=== PATIENT | male | born 1970 | race African-American/Black ===

== ENCOUNTER 2020-12-11 17:29 | Inpatient (IN) ==
--- NOTE | 2020-12-11 18:49 | Emergency Department Note ---
History of Present Illness General Chief complaint: Shortness of Breath/Dyspnea Time Seen by Provider: 12/11/20 18:36 Source: patient History of Present Illness Provider complaint: Cough and shortness of breath Onset (ago): day(s) 10 Location: chest Pain Consistency: + constant Quality: + other (Short of breath) Exacerbated By: + other (Exertion) Associated symptoms: + cough and + shortness of breath; no chest pain, no fever/chills, no headaches, no malaise or no nausea/vomiting This is a 50-year-old male with history of hypertension presenting with cough and shortness of breath. He was sent here from his doctor's office to evaluate for PE versus COVID-19. The patient states that 10 days ago he started coughin g. He has a dry cough. He also had shortness of breath with it. It was worse with exertion. No associated chest discomfort or pain or back pain. He denies any fever, loss of taste or smell or diarrhea. He has been vaccinated for COVID-19 and has had no known exposure. He states that his blood pressure is high because he forgot to take his blood pressure medication this morning. He denies any vomiting, diarrhea, leg swelling or pain, abdominal pain, urinary symptoms or history of PE or DVT. Home Medications Medication Instructions Recorded Confirmed Type losartan 50 mg tablet 50 mg PO DAILY 02/06/18 12/11/20 History metformin 1,000 mg tablet 1,000 mg PO BID 02/06/18 12/11/20 History Allergies Allergy/AdvReac Type Severity Reaction Status Date / Time bee venom protein (honey bee) Allergy Unknown anaplyaxsis Verified 12/11/20 21:20 . Past Med/Surg History Medical History Diabetes Hypertension Social History Smoking Status: Never smoker Preferred Language: Mexican Feels Safe at Home: Yes Review of Systems See HPI for pertinent positives & negatives. and A total of 10 systems reviewed and were otherwise negative Physical Exam Vital Signs Vital Signs - 24 hr 12/11/20 17:38 12/11/20 17:46 12/11/20 17:54 Temperature 36.8 C Temperature Source Oral Pulse Rate 123 H 119 H Pulse Rate from SpO2 Sensor 123 H Respiratory Rate 29 H 20 Respiratory Effort / Characteristics Spontaneous Short of Breath SOB on Exertion Respiratory Depth Normal Respiratory Pattern Regular Blood Pressure 207/148 H 207/148 H Blood Pressure Mean 167 167 Blood Pressure Position Lying Pulse Oximetry 93 92 99 Oxygen Delivery Method Room Air Nasal Cannula Oxygen Flow Rate 6 Sepsis Recent Fever Within 48 Hours No Sepsis New/Unexplained Change in Mental Status N/A Sepsis Action Taken by Nursing No Action Required Oxygen Flow Rate - Titration 0 Pulse Oximetry Post Tiitration 94 12/11/20 18:00 12/11/20 18:30 12/11/20 19:00 Temperature Temperature Source Pulse Rate 120 H 115 H 123 H Pulse Rate from SpO2 Sensor 120 H 115 H 123 H Respiratory Rate 28 H 26 H 29 H Respiratory Effort / Characteristics Respiratory Depth Respiratory Pattern Blood Pressure 207/151 H 197/154 H 200/154 H Blood Pressure Mean 169 168 169 Blood Pressure Position Pulse Oximetry 96 97 94 Oxygen Delivery Method Oxygen Flow Rate Sepsis Recent Fever Within 48 Hours Sepsis New/Unexplained Change in Mental Status Sepsis Action Taken by Nursing Oxygen Flow Rate - Titration Pulse Oximetry Post Tiitration 12/11/20 19:30 12/11/20 19:44 12/11/20 20:17 Temperature Temperature Source Pulse Rate 118 H 125 H Pulse Rate from SpO2 Sensor 117 H 125 H Respiratory Rate 28 H 24 Respiratory Effort / Characteristics Respiratory Depth Respiratory Pattern Blood Pressure 199/145 H Blood Pressure Mean 163 Blood Pressure Position Pulse Oximetry 97 97 91 Oxygen Delivery Method Nasal Cannula Oxygen Flow Rate 2 Sepsis Recent Fever Within 48 Hours Sepsis New/Unexplained Change in Mental Status Sepsis Action Taken by Nursing Oxygen Flow Rate - Titration Pulse Oximetry Post Tiitration 12/11/20 20:20 12/11/20 20:30 12/11/20 21:30 Temperature Temperature Source Pulse Rate 122 H 120 H 115 H Pulse Rate from SpO2 Sensor 122 H 120 H 115 H Respiratory Rate 22 24 26 H Respiratory Effort / Characteristics Respiratory Depth Respiratory Pattern Blood Pressure 201/150 H 186/132 H Blood Pressure Mean 167 150 Blood Pressure Position Pulse Oximetry 92 95 93 Oxygen Delivery Method Oxygen Flow Rate Sepsis Recent Fever Within 48 Hours Sepsis New/Unexplained Change in Mental Status Sepsis Action Taken by Nursing Oxygen Flow Rate - Titration Pulse Oximetry Post Tiitration 12/11/20 22:00 12/11/20 22:32 Temperature Temperature Source Pulse Rate 111 H 122 H Pulse Rate from SpO2 Sensor 112 H 122 H Respiratory Rate 22 24 Respiratory Effort / Characteristics Respiratory Depth Respiratory Pattern Blood Pressure 178/125 H Blood Pressure Mean 142 Blood Pressure Position Pulse Oximetry 95 92 Oxygen Delivery Method Oxygen Flow Rate Sepsis Recent Fever Within 48 Hours Sepsis New/Unexplained Change in Mental Status Sepsis Action Taken by Nursing Oxygen Flow Rate - Titration Pulse Oximetry Post Tiitration Constitutional: Vital signs reviewed. Eyes: Pupils are equal round reactive to light. Conjunctiva are noninjected. ENT: Pharynx is clear without erythema or exudate. Mucous membranes are moist. Neck supple without meningeal signs. Respiratory: Clear to auscultation bilaterally. Breath sounds are equal bilaterally. No JVD or tracheal deviation. Cardiovascular: Regular rhythm. Tachycardic. Heart rate 119. GI: Soft, nondistended and nontender. Bowel sounds are present. Musculoskeletal: No peripheral edema. No lower extremity tenderness. Integumentary: No cyanosis. or jaundice. Neurological: The patient is awake and alert. No focal deficits. Psychiatric: Normal affect. Not anxious appearing. Course Administered Medications Discontinued Medications Piperacillin Sod/Tazobactam Sod (Zosyn) 4.5 gm in 120 mls @ 240 mls/hr IV NOW ONE Stop: 12/11/20 21:18 Last Infusion: 12/11/20 21:46 Dose: 0 mls/hr Documented by: [id number] Admin: 12/11/20 21:13 Dose: 240 mls/hr Documented by: [id number] Ioversol (Optiray 320 125ml) 110 ml IV ONCE ONE Stop: 12/11/20 20:05 Last Admin: 12/11/20 20:05 Dose: 110 ml Documented by: [id number] Losartan Potassium (Losartan Potassium 50 Mg Tab) 50 mg PO NOW STA Stop: 12/11/20 19:09 Last Admin: 12/11/20 19:49 Dose: 50 mg Documented by: [id number] Nitroglycerin (Nitroglycerin 2% Ointment 30gm Tube) 1 inch EXT NOW ONE Stop: 12/11/20 20:48 Last Admin: 12/11/20 21:02 Dose: 1 inch Documented by: [id number] Critical Care Time Critical Care Time: Yes Total Critical Care Time: 35 I have personally spent approximately 35 minutes of critical care time in the direct management of this patient. This includes bedside care, interpretation of diagnostic studies, and testing, discussion with consultants, patient, and family members, and other required patient management activities. These minutes are in excess of all separately billable procedures. Medical Decision Making Differential Diagnosis Pneumonia, pulmonary embolism, COVID-19, dehydration, viral syndrome, ACS Medical Records Attestation: I reviewed the patient's medical records. I did perform a limited focused review of portions of the patient's old chart on the electronic medical record. The patient has had no recent pertinent visits to this hospital. Home Medications Current Medication List: was personally reviewed by me Laboratory Data Attestation: I reviewed the patient's lab results. Result diagrams: 12/11/20 17:41 12/11/20 17:41 Lab Results 12/11/20 12/11/20 12/11/20 Range/Units 17:41 17:41 17:41 WBC 9.46 (4.8-10.8) K/uL RBC 5.16 (4.7-6.1) M/uL Hgb 14.5 (14.0-18.0) g/dL Hct 43.2 (42-52) % MCV 83.7 (80-100) fL MCH 28.1 (25-34) pg MCHC 33.6 (32-36) g/dL RDW Std Deviation 40.3 (36.4-46.3) fL RDW Coeff of Trina 13.3 (11.5-14.5) % Plt Count 164 (130-400) K/uL MPV 12.1 H (7.4-10.4) fL Immature Gran % (Auto) 0.1 % Neut % (Auto) 71.6 % Lymph % (Auto) 19.5 % [place] % (Auto) 7.4 % Eos % (Auto) 1.1 % Baso % (Auto) 0.3 % Neut # (Auto) 6.78 H (1.4-6.5) K/uL Lymph # (Auto) 1.84 (1.2-3.4) K/uL [place] # (Auto) 0.70 H (0.11-0.59) K/uL Eos # (Auto) 0.10 (0-0.5) K/uL Baso # (Auto) 0.03 (0-0.2) K/uL Immature Gran # (Auto) 0.01 (0.00-0.02) K/uL PT 11.3 (9.0-12.0) Seconds INR 1.1 (0.9-1.1) APTT 22.5 (21.0-31.0) Seconds PTT Ratio 0.9 Sodium 138 (136-145) mmol/L Potassium 3.8 (3.5-5.1) mmol/L Chloride 108 H (98-107) mmol/L Carbon Dioxide 21 (21-32) mmol/L Anion Gap 10.0 (3-11) BUN 18 (7-18) mg/dl Creatinine 1.46 H (0.6-1.4) mg/dl Est Cr Clr Drug Dosing 80.9 ml/min Est GFR ( Amer) 63.2 ml/min Est GFR (Non-Af Amer) 54.5 ml/min BUN/Creatinine Ratio 12.4 (10-20) Glucose 237 H (70-99) mg/dl Lactate (0.4-2.0) mmol/L Calcium 9.1 (8.5-10.1) mg/dl Total Bilirubin 0.9 (0.2-1) mg/dl AST 81 H (15-37) U/L ALT 135 H (12-78) U/L Alkaline Phosphatase 87 (45-117) U/L Troponin I 0.049 H* (0-0.045) ng/ml Total Protein 6.8 (6.4-8.2) gm/dl Albumin 3.2 L (3.4-5.0) gm/dl Globulin 3.6 (2.5-4.0) gm/dl Albumin/Globulin Ratio 0.9 (0.9-2) COVID-19 Eval Order SARS-CoV-2 (PCR) (Negative) 12/11/20 12/11/20 12/11/20 Range/Units 19:04 19:04 21:07 WBC (4.8-10.8) K/uL RBC (4.7-6.1) M/uL Hgb (14.0-18.0) g/dL Hct (42-52) % MCV (80-100) fL MCH (25-34) pg MCHC (32-36) g/dL RDW Std Deviation (36.4-46.3) fL RDW Coeff of Trina (11.5-14.5) % Plt Count (130-400) K/uL MPV (7.4-10.4) fL Immature Gran % (Auto) % Neut % (Auto) % Lymph % (Auto) % [place] % (Auto) % Eos % (Auto) % Baso % (Auto) % Neut # (Auto) (1.4-6.5) K/uL Lymph # (Auto) (1.2-3.4) K/uL [place] # (Auto) (0.11-0.59) K/uL Eos # (Auto) (0-0.5) K/uL Baso # (Auto) (0-0.2) K/uL Immature Gran # (Auto) (0.00-0.02) K/uL PT (9.0-12.0) Seconds INR (0.9-1.1) APTT (21.0-31.0) Seconds PTT Ratio Sodium (136-145) mmol/L Potassium (3.5-5.1) mmol/L Chloride (98-107) mmol/L Carbon Dioxide (21-32) mmol/L Anion Gap (3-11) BUN (7-18) mg/dl Creatinine (0.6-1.4) mg/dl Est Cr Clr Drug Dosing ml/min Est GFR ( Amer) ml/min Est GFR (Non-Af Amer) ml/min BUN/Creatinine Ratio (10-20) Glucose (70-99) mg/dl Lactate 1.6 (0.4-2.0) mmol/L Calcium (8.5-10.1) mg/dl Total Bilirubin (0.2-1) mg/dl AST (15-37) U/L ALT (12-78) U/L Alkaline Phosphatase (45-117) U/L Troponin I (0-0.045) ng/ml Total Protein (6.4-8.2) gm/dl Albumin (3.4-5.0) gm/dl Globulin (2.5-4.0) gm/dl Albumin/Globulin Ratio (0.9-2) COVID-19 Eval Order Covid19 at [facility] SARS-CoV-2 (PCR) NEGATIVE (Negative) Imaging Data Radiologist's Impression: Chest CTA 12/11/20 18:46 CT ANGIOGRAPHY OF THE CHEST, PULMONARY EMBOLUS PROTOCOL CLINICAL HISTORY: Dyspnea eval for PE COMPARISON STUDY: Chest radiograph February 06, 2018. TECHNIQUE: Following IV administration of 110 mL of Optiray, helical axial images of the chest were obtained utilizing the pulmonary embolus protocol. Maximal intensity projections and sagittal and coronal reformats were viewed on an independent 3D workstation. IV contrast was administered without complication. Automated exposure control was utilized for the study. A dose lowering technique was utilized adhering to the principles of ALARA. CT DOSE: 856.00 mGy.cm FINDINGS: No pulmonary emboli are identified. Borderline cardiomegaly is noted. There is a small pericardial effusion. Moderate bilateral pleural effusions are noted, right larger than left. Bilateral lower lobe associated airspace opaciti es are present. Interlobular septal thickening within the lungs is noted. Note is made of a 3.1 cm ground glass opacity within the right upper lobe. There are smaller ground glass opacities within the left upper lobe. No acute fracture or suspicious lesion within visualized portions of the bony thorax is noted. There are multiple mildly enlarged mediastinal and bilateral hilar lymph nodes. Index right paratracheal lymph node on image 202 of 271 measures 1.3 cm in short axis diameter. A probable 1.1 cm right hepatic lobe cyst is incidentally noted. IMPRESSION: 1. No pulmonary emboli identified. 2. Moderate bilateral pleural effusions. Associated bilateral lower lobe opacities favor atelectasis although pneumonia could appear similar. Small pericardial effusion. 3. Interlobular septal thickening consistent with interstitial pulmonary edema. Bilateral upper lobe ground glass opacities could reflect a superimposed infectious process or alveolar edema. 4. Mildly enlarged mediastinal and bilateral hilar lymph nodes which are likely reactive or related to pulmonary edema. ACT 112: Negative or not required by law. Electronically signed by: Marlon Stein M.D. 12/11/2020 8:40 PM ECG Data Attestation: I personally reviewed and interpreted this ECG as follows: Indication: + SOB/dyspnea Rate (beats per minute): 124 Rhythm: + sinus tachycardia ECG House: + Normal ECG ST segments: + Nonspecific ST abnormalities ECG Findings: + LVH MDM Narrative I did evaluate the patient as noted above. The patient was sent here from his doctor's office for dyspnea on exertion and cough. They were concerned about pulmonary embolism or COVID-19. IV access was established. I did place an order for continuous cardiac monitoring. The monitor showed sinus tachycardia at a rate of 112 bpm. The patient's O2 saturation was in the 80s on room air. He was placed on 2 L of oxygen via nasal cannula. He did feel better afterwards. I did order and personally review the patient's 12-lead EKG as described above. He has sinus tachycardia with nonspecific ST changes. He denies having any chest discomfort or pain. He is not currently having any shor tness of breath. I did order and review the patient's blood work as noted in the electronic medical record. CBC is unremarkable without leukocytosis or anemia. His electrolytes are unremarkable. Creatinine slightly elevated 1.46. Troponin is slightly elevated 0.049. AST and ALT are slightly elevated as well and glucose is 237. He is on Metformin. His blood pressure is significantly elevated. I did treat him with losartan 50 mg p.o. as he forgot to take it this morning. His blood pressure did improve but was still elevated. After discussion with the patient, I did order a CT angiogram of the chest. I did review the images myself as well as the radiology report as described above. He has no evidence of pulmonary embolism. He does have bilateral pulmonary edema as well as some bilateral lower lobe opacities concerning for pneumonia. There is a small pericardial effusion. I did discuss the test results with the patient. He states he feels well at this time. He has no complaints currently. I did order blood cultures. I ordered a lactate which was 1.6. I did treat him with Zosyn IV and recommended hospitalization. He was also given nitroglycerin paste to the anterior chest wall for his blood pressure and pulmonary edema. Should this not be effective he may need to be started on the drip. Covid testing was negative. I did discuss the case with the hospitalist and continuous pillowcase cutter. Impression & Plan Hypoxemia, Pulmonary edema, Pericardial effusion, Bilateral pneumonia, Elevated troponin, Abnormal LFTs, Elevated serum creatinine, Acute hyperglycemia Discharge Plan Visit Data Chief Complaint: Shortness of Breath/Dyspnea ED Provider: Shane Calderon Discharge Problem: Hypoxemia, Pulmonary edema, Pericardial effusion, Bilateral pneumonia, Elevated troponin, Abnormal LFTs, Elevated serum creatinine, Acute hyperglycemia Patient Disposition: Being Evaluated by Hospitalist Forms Stand Alone Forms: My [facility] Prescriptions Prescriptions: No Action losartan 50 mg tablet 50 mg PO DAILY RF: 0 metformin 1,000 mg tablet 1,000 mg PO BID RF: 0 Referrals Referrals: Jeet Chu [Primary Care Provider] -
[2020-12-11 18:54] LABS: Basophils # (auto) 0.03 K/uL (0-0.2); Basophils % (auto) 0.3 %; Eosinophils % (auto) 1.1 %; Hematocrit (blood only) 43.2 % (42-52); Hemoglobin 14.5 g/dL (14.0-18.0); Immature Granulocytes # (auto) 0.01 K/uL (0.00-0.02); Immature Granulocytes % (auto) 0.1 %; Lymphocytes # (auto) 1.84 K/uL (1.2-3.4); Lymphocytes % (auto) 19.5 %; Mean Corpuscular Hemoglobin 28.1 pg (25-34); Mean Corpuscular Hgb Conc 33.6 g/dL (32-36); Mean Corpuscular Volume 83.7 fL (80-100); Mean Platelet Volume 12.1 fL (7.4-10.4); Monocytes % (auto) 7.4 %; Neutrophils # (auto) 6.78 K/uL (1.4-6.5); Neutrophils % (auto) 71.6 %; Platelet Count 164 K/uL (130-400); RDW Coefficient of Variation 13.3 % (11.5-14.5); RDW Standard Deviation 40.3 fL (36.4-46.3); Red Blood Count 5.16 M/uL (4.7-6.1); White Blood Count 9.46 K/uL (4.8-10.8)
[2020-12-11 19:01] LABS: Albumin Level 3.2 gm/dl (3.4-5.0); BUN Creatinine Ratio 12.4 (10-20); Calcium 9.1 mg/dl (8.5-10.1); Creatinine Clr Calc Pharmacy 80.9 ml/min; Est GFR (African American) 63.2 ml/min; Est GFR (Non-African American) 54.5 ml/min; Potassium 3.8 mmol/L (3.5-5.1)
[2020-12-11 19:04] LABS: INR 1.1 (0.9-1.1); Partial Thromboplastin Ratio 0.9; Partial Thromboplastin Time 22.5 Seconds (21.0-31.0); Prothrombin Time 11.3 Seconds (9.0-12.0)
[2020-12-11] MEDS ORDERED: LOSARTAN POTASSIUM 50 MG TAB PO STA (19:08)
[2020-12-11 19:09] LABS: Albumin Globulin Ratio 0.9 (0.9-2); Bilirubin,Total 0.9 mg/dl (0.2-1); Globulin 3.6 gm/dl (2.5-4.0); Total Protein 6.8 gm/dl (6.4-8.2); Troponin I 0.049 ng/ml (0-0.045)
[2020-12-11] MEDS ORDERED: OPTIRAY 320 125ml IV ONE (20:04)
--- NOTE | 2020-12-11 20:42 | CT Scan Report ---
CT ANGIOGRAPHY OF THE CHEST, PULMONARY EMBOLUS PROTOCOL CLINICAL HISTORY: Dyspnea eval for PE COMPARISON STUDY: Chest radiograph February 06, 2018. TECHNIQUE: Following IV administration of 110 mL of Optiray, helical axial images of the chest were o btained utilizing the pulmonary embolus protocol. Maximal intensity projections and sagittal and cor onal reformats were viewed on an independent 3D workstation. IV contrast was administered without co mplication. Automated exposure control was utilized for the study. A dose lowering technique was ut ilized adhering to the principles of ALARA. CT DOSE: 856.00 mGy.cm FINDINGS: No pulmonary emboli are identified. Borderline cardiomegaly is noted. There is a small per icardial effusion. Moderate bilateral pleural effusions are noted, right larger than left. Bilateral lower lobe associated airspace opacities are present. Interlobular septal thickening within the lungs is noted. Note is made of a 3.1 cm ground glass opacity within the right upper lobe. There are small er ground glass opacities within the left upper lobe. No acute fracture or suspicious lesion within v isualized portions of the bony thorax is noted. There are multiple mildly enlarged mediastinal and bi lateral hilar lymph nodes. Index right paratracheal lymph node on image 202 of 271 measures 1.3 cm in short axis diameter. A probable 1.1 cm right hepatic lobe cyst is incidentally noted. IMPRESSION: 1. No pulmonary emboli identified. 2. Moderate bilateral pleural effusions. Associated bilateral lower lobe opacities favor atelectasis although pneumonia could appear similar. Small pericardial effusion. 3. Interlobular septal thickening consistent with interstitial pulmonary edema. Bilateral upper lobe ground glass opacities could reflect a superimposed infectious process or alveolar edema. 4. Mildly enlarged mediastinal and bilateral hilar lymph nodes which are likely reactive or related t o pulmonary edema. ACT 112: Negative or not required by law. Electronically signed by: Marlon Stein M.D. 12/11/2020 8:40 PM
[2020-12-11] MEDS ORDERED: NITROGLYCERIN 2% OINTMENT 30GM TUBE EXT ONE (20:47)
[2020-12-11] MEDS ORDERED: PIPERACILLIN/TAZOBACTAM 4.5 GM/120 ML BAG IV ONE (20:49)
[2020-12-11] MEDS ORDERED: PIPERACILL/TAZOBAC CONSULT ACTIVE PRN (20:49)
[2020-12-11] MEDS ORDERED: guaiFENesin/CODEINE 100MG/10MG 5ML UDC PO STA (22:44)
[2020-12-11] MEDS ORDERED: LEVALBUTEROL HCL 1.25 MG/3 ML NEB NEB PRN (22:51)
[2020-12-11] MEDS ORDERED: FUROSEMIDE 40 MG/4 ML VIAL IV SCH (23:00)
[2020-12-11] MEDS ORDERED: LABETALOL HCL IV 5 MG/ML 20ML IV STA (23:13)
[2020-12-11] MEDS ORDERED: NITROGLYCERIN 2% OINTMENT 30GM TUBE EXT STA (23:16)
[2020-12-11] MEDS ORDERED: LABETALOL HCL IV 5 MG/ML 20ML IV ONE (23:22)
[2020-12-11] MEDS ORDERED: NITROGLYCERIN 2% OINTMENT 30GM TUBE ONE (23:24)
[2020-12-12] MEDS ORDERED: POLYETHYLENE (MIRALAX) 17 GM PACK PO PRN (00:25)
[2020-12-12] MEDS ORDERED: ONDANSETRON INJ 2 MG/ML 2 ML VIAL IV PRN (00:25)
[2020-12-12] MEDS ORDERED: NITROGLYCERIN SL 0.4 MG/TAB TAB SL PRN (00:25)
[2020-12-12] MEDS ORDERED: ACETAMINOPHEN 325 MG TAB PO PRN (00:25)
[2020-12-12] MEDS ORDERED: LABETALOL HCL IV 5 MG/ML 20ML IV PRN (00:25)
[2020-12-12] MEDS ORDERED: LEVALBUTEROL HCL 1.25 MG/3 ML NEB NEB PRN (00:25)
[2020-12-12] MEDS ORDERED: guaiFENesin/CODEINE 100MG/10MG 5ML UDC PO PRN (00:25)
[2020-12-12] MEDS ORDERED: FUROSEMIDE 40 MG/4 ML VIAL IV ONE (00:36)
[2020-12-12] MEDS ORDERED: CARBOHYDRATES FOR HYPOGLYCEMIA PO PRN (00:45)
[2020-12-12] MEDS ORDERED: GLUCOSE 40% GEL 15 GM TUBE PO PRN (00:45)
[2020-12-12] MEDS ORDERED: GLUCOSE 10 TABS/TUBE PO PRN (00:45)
[2020-12-12] MEDS ORDERED: GLUCAGON FOR INJ 1 MG VIAL IM PRN (00:45)
[2020-12-12] MEDS ORDERED: DEXTROSE 50% 50 ML SYRINGE IV PRN (00:45)
--- NOTE | 2020-12-12 01:04 | History and Physical Report ---
DATE OF ADMISSION: 12/11/2020. CHIEF COMPLAINT: Shortness of breath and cough. HISTORY OF PRESENT ILLNESS: This is a 50-year-old male with past medical history significant for type 2 diabetes, obstructive sleep apnea, history of hypertension, history of CVA, obesity, who presents with shortness of breath and cough. The patient says in the last 10 days he is having a lot of cough. Once in a while, he brings whitish phlegm and he was feeling short of breath, which prompted him to go to the PCP's office and he was sent here. The patient is currently on 2 L, saturating okay, seems comfortable. When he came in, blood pressure was high, in systolic 200/140s, placed on nitroglycerin paste. The patient is on metformin and losartan at home. Looks like he did not take his Losartan today morning and he says he takes his baby aspirin, but is not taking his cholesterol medication and he says he used to take insulin before, but he is not taking it anymore now, and uses CPAP in the nighttime. He states he could not lie flat for more than 30 minutes. Did not notice any swelling in the legs. Since today afternoon, he has noticed like 1/10 chest pain at one point in the left side of chest. No radiation. Denies any fevers. Denies any headache, no neck pain, no blurred visions, no earache, no runny nose, no sore throat. Appetite is okay. No nausea, no abdominal pain. Normal bowel and bladder movements. He says he had COVID vaccine, [email or web address], and the last dose was in October. His SARS-CoV-2 PCR is negative in the ER. ALLERGIES: LISINOPRIL, BEE VENOM. PAST MEDICAL HISTORY: As mentioned above. PAST SURGICAL HISTORY: None. MEDICATIONS: The patient currently is taking losartan 50 mg and metformin 1000 mg p.o. b.i.d. FAMILY HISTORY: Significant for father has hypertension, mother has hypertension, brother has drug abuse. SOCIAL HISTORY: . Quit smoking in 2010, smoked for 15 years. Alcohol socially. No drug use. REVIEW OF SYSTEMS: As per HPI. Rest of the review of systems is negative. PHYSICAL EXAMINATION: GENERAL: The patient is of moderate build, not in acute distress. VITAL SIGNS: Temperature 36.8, pulse 120s, respiratory rate 24, blood pressure 178/125, oxygen 92% on 2 liters. HEENT: Pupils equal, round, and reactive to light. Oral mucosa moist. NECK: No JVD, no neck masses. CARDIOVASCULAR: S1 and S2 present. Tachycardia, gallop present. RESPIRATORY SYSTEM: Normal AP diameter. No accessory muscle use. Mild bibasilar crackles. No wheezing. ABDOMEN: Soft, bowel sounds present, nontender, no distention. CENTRAL NERVOUS SYSTEM: Cranial nerves II through XII grossly intact, nonfocal. EXTREMITIES: Bilateral lower extremity, +1 to +2 edema present. LABORATORY DATA: WBC 9.4, hemoglobin 14.5, hematocrit 43.2, platelets 164. PT 11.3, INR 1.1, APTT 22.5. Sodium 138, potassium 3.8, chloride 108, bicarbonate 21, BUN 18, creatinine 1.4, serum glucose 237. Lactate 1.6, calcium 11.1, total bilirubin 0.9, AST 81, ALT 135, alkaline phosphatase 87. Troponin 1 of 0.04. SARS-CoV-2 PCR negative. IMAGING DATA: CTA of the chest, no pulmonary emboli identified. Moderate bilateral pleural effusions, associated bilateral lower lobe opacities, favor atelectasis, although pneumonia could appear similar. Small pericardial effusion. Interlobular septal thickening consistent with interstitial pulmonary edema. Bilateral upper lobe ground-glass opacity, could reflect a superimposed infectious process or alveolar edema. Mildly enlarged mediastinal and bilateral hilar lymph nodes, which are likely reactive or related to pulmonary edema. EKG: Sinus tachycardia at a rate of 124, possible left atrial enlargement, no significant change was found. Left ventricular hypertrophy, no significant change was found. ASSESSMENT AND PLAN: This is a 50-year-old male who presents with ongoing cough and shortness of breath, possibly secondary to congestive heart failure and pneumonia. 1. Shortness of breath and cough for the last 10 days, bringing up once in a while whitish sputum. No fevers. Most likely secondary to acute congestive heart failure. pulmonary edema on the CAT scan and also has lower extremity edema. Currently saturating okay on 2 liters. On exam, he has tachycardia/gallop. Will place him on IV Lasix 40 b.i.d. Daily weights, I's and O's. Follow echocardiogram. Xopenex p.r.n. Closely monitor in the tele floor. 2. Possible pneumonia: Empirically started on Zosyn and p.o. doxycycline. Will monitor the response. 3. Obstructive sleep apnea: Continue CPAP at bedtime. 4. Mild elevation of troponin: Most likely secondary to demand ischemia. Follow serial enzymes and echocardiogram. 5. Acute kidney injury: Current creatinine of 1.4, baseline creatinine around 1 in 2018 labs, mostly cardiorenal. Will monitor the labs. Placed on IV Lasix. 6. Diabetes: Holding his metformin. He is supposed to be on Lantus at home, but not taking. ISS.Will follow the HbA1c levels, follow the blood sugars. 7. Mild elevation of AST and ALT: Will follow the repeat labs. 8. Hypertension and hypertensive urgency: Continue his home losartan. Will place on nitroglycerin paste and IV labetalol p.r.n. Will monitor the blood pressure. 9. Hyperlipidemia. 10. History of cerebrovascular accident: He says he is taking aspirin, but not taking statin. Follow the lipid profile. 11. Deep venous thrombosis prophylaxis: Placed on Lovenox. DISPOSITION: Closely monitor in the med tele. Level 1 full code. Expect to discharge home and follow with family doctor. Addendum: Blood pressure was still high so changed nitropaste to 2inch but later morning readings BP came down so changed nitropaste back to 1inch. Job ID: [id number] [email or web address]
[2020-12-12] MEDS: DOXYCYCLINE HYCLATE 100 MG CAP PO SCH ×3 (01:36→20:18)
[2020-12-12] MEDS: PIPERACILLIN/TAZOBACTAM 3.375 GM in DEXTROSE 5% 100 ML IV SCH ×2 (01:36→10:50)
[2020-12-12] MEDS: INSULIN ASPART 100 UNITS/ML 3 ML PEN SC SCH ×5 (01:37→20:19)
[2020-12-12] MEDS: ENOXAPARIN INJ 40 MG/0.4 ML SYR SQ SCH (05:47)
[2020-12-12] MEDS ORDERED: NITROGLYCERIN 2% OINTMENT 30GM TUBE EXT SCH (06:00)
[2020-12-12 06:20] LABS: Mean Corpuscular Hgb Conc 33.8 g/dL (32-36)
[2020-12-12 06:29] LABS: Hemoglobin 14.2 g/dL (14.0-18.0); Mean Corpuscular Hemoglobin 28.2 pg (25-34); Mean Corpuscular Volume 83.5 fL (80-100); RDW Coefficient of Variation 13.5 % (11.5-14.5); RDW Standard Deviation 40.5 fL (36.4-46.3); Red Blood Count 5.03 M/uL (4.7-6.1)
[2020-12-12 06:48] LABS: Basophils # (auto) 0.04 K/uL (0-0.2); Basophils % (auto) 0.5 %; Eosinophils % (auto) 1.2 %; Giant Platelets 1+; Immature Granulocytes # (auto) 0.02 K/uL (0.00-0.02); Immature Granulocytes % (auto) 0.2 %; Lymphocytes # (auto) 2.15 K/uL (1.2-3.4); Lymphocytes % (auto) 26.2 %; Mean Platelet Volume 11.9 fL (7.4-10.4); Monocytes # (auto) 0.86 K/uL (0.11-0.59); Monocytes % (auto) 10.5 %; Neutrophils # (auto) 5.03 K/uL (1.4-6.5); Neutrophils % (auto) 61.4 %; Platelet Count 140 K/uL (130-400); Platelet Estimate Normal (Normal)
[2020-12-12 06:57] LABS: BUN Creatinine Ratio 11.2 (10-20); Bilirubin Direct 0.3 mg/dl (0-0.2); Calcium 8.8 mg/dl (8.5-10.1); Creatinine Clr Calc Pharmacy 81.5 ml/min; Est GFR (African American) 64.3 ml/min; Est GFR (Non-African American) 55.4 ml/min; Magnesium 2.3 mg/dl (1.8-2.4); Potassium 3.9 mmol/L (3.5-5.1)
[2020-12-12 07:04] LABS: Bilirubin,Total 1.1 mg/dl (0.2-1); Total Protein 6.3 gm/dl (6.4-8.2); Troponin I 0.05 ng/ml (0-0.045)
[2020-12-12 07:43] LABS: Estimated Average Glucose 240 mg/dl
[2020-12-12] MEDS: LOSARTAN POTASSIUM 50 MG TAB PO SCH (08:06)
[2020-12-12] MEDS: ASPIRIN 81 MG ECTAB PO SCH (08:06)
[2020-12-12] MEDS: BENZONATATE 100 MG CAPSULE PO SCH ×3 (08:07→20:19)
[2020-12-12] MEDS ORDERED: FUROSEMIDE 40 MG in SYRINGE 0 ML IV SCH (09:00)
--- NOTE | 2020-12-12 09:01 | Cardiology Consultation ---
Date of Consultation December 12, 2020 Assessment & Plan (1) Acute systolic (congestive) heart failure: (2) Pleural effusion: (3) Cardiomyopathy: (4) Mitral regurgitation: (5) History of CVA (cerebrovascular accident): (6) Hypertension: (7) Diabetes: (8) Pericardial effusion: Pt presents with acute decompensated LV systolic heart failure unclear etiology with LV EF of 25-30% echo from 2018 reportedly showed normal LV systolic function and normal wall thickness curious wall motion and LVH pattern on echo performed today, suspicious for hypertensive heart disease with possible inferior/septal infarct pattern will diurese for now with plan being to perform left and right cardiac cath once stabilized lasix 60mg IV bid and potassium supplementation will initiate EBBB with metoprolol succinate 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 Dunn Attending Physician: Merrick Powers MD History of Present Illness It was my pleasure to see Mr. Duong in cardiac consultation today December 12, 2020. He is a very pleasant 50-year-old gentleman who is not previously known to our cardiology practice. He presented to [facility] on 12/11/2020 with complaints of shortness of breath and nonproductive cough after being seen by his PCP. He states his symptoms have been going on for approximately the last 2 months. He was also found to be significantly hypertensive at his PCPs office and he was sent to the emergency department for further evaluation. Upon arrival to the emergency department he is found to be significantly volume overloaded with bilateral pleural effusions as well as a pericardial effusion. He denies experiencing any chest pain, palpitations, lightheadedness, dizziness or syncope. He states his been compliant with his medications as an outpatient. I was able to find a 2D echocardiogram report from [facility] from 2017 when the patient was admitted for acute CVA which reported normal LV chamber size and wall thickness, normal LV systolic function and no significant valvular pathology. PMHX: 1. Ischemic left MCA CVA 2017 2. DM2 on insulin, poorly controlled 3. Hypertension 4. Aphasia s/p CVA 5. ELISA 6. Obesity Allergies Allergy/AdvReac Type Severity Reaction Status Date / Time bee venom protein (honey bee) Allergy Unknown anaplyaxsis Verified 12/11/20 21:20 . Home Medications Medication Instructions Recorded Confirmed Type losartan 50 mg tablet 50 mg PO DAILY 02/06/18 12/11/20 History metformin 1,000 mg tablet 1,000 mg PO BID 02/06/18 12/11/20 History Patient History Medical History Diabetes Hypertension Social History Smoking Status: Former smoker Do You Dip or Chew Tobacco: No; Tobacco Cessation Education Requested by Patient: No Hx Alcohol Use: No Hx Substance Use: No Preferred Language: Jordanian Communication Ability: Effective Subassembler Required: No Beliefs That Will Affect Care: None Current Living Situation: Significant Other Other Information That Helps Us Care for You: No Feels Safe at Home: Yes Safety Concerns: Feels Safe At This Time Assistive Devices: CPAP Results & Data ([facility]) Vital Signs (Past 12 Hours) Vital Signs Temp Pulse Pulse Resp BP BP BP 12/12/20 04:46 36.7 C 92 H 18 136/95 12/12/20 02:44 73 20 12/12/20 00:51 74 24 12/12/20 00:44 36.9 C 93 H 16 146/97 H 12/12/20 00:39 93 H 12/12/20 00:25 12/11/20 23:30 93 H 29 H 156/111 H 12/11/20 23:00 112 H 27 H 201/150 H 12/11/20 22:32 122 H 24 12/11/20 22:00 111 H 22 178/125 H 12/11/20 21:30 115 H 26 H 186/132 H Pulse Ox Pulse Ox 12/12/20 04:46 98 12/12/20 02:44 97 12/12/20 00:51 92 12/12/20 00:44 97 12/12/20 00:39 12/12/20 00:25 97 12/11/20 23:30 95 12/11/20 23:00 98 12/11/20 22:32 92 12/11/20 22:00 95 12/11/20 21:30 93 Diagnostic Findings Transthoracic echocardiogram: Compared to previous echocardiogram report from 02/21: LVH, regional wall motion abnormalities, pericardial effusion and mitral regurgitation are now present. Normal LV chamber size. Prominent, large posterior papillary muscle noted. Thinning and akinesis of the anteroseptal and inferoseptal schneider. Severe LVH of remaining wall segments with moderate global hypokinesis. See score. Akinesis of the inferior, inferoseptal and anteroseptal schneider with otherwise, mild to moderate global hypokinesis. Grade II diastolic dysfunction. Thickened RV free wall. Aortic valve sclerosis mild, without significant aortic valvular stenosis. Restricted motion of the posterior mitral valve leaflet secondary to inferior wall akinesis with subsequent moderate secondary mitral regurgitation. Large, loculated anterior pericardial effusion is noted. There is no diastolic compression of the right ventricle to suggest cardiac tamponade. There are no echocardiographic indications of cardiac tamponade. Chest CTA 12/11/20: IMPRESSION: 1. No pulmonary emboli identified. 2. Moderate bilateral pleural effusions. Associated bilateral lower lobe opacities favor atelectasis although pneumonia could appear similar. Small pericardial effusion. 3. Interlobular septal thickening consistent with interstitial pulmonary edema. Bilateral upper lobe ground glass opacities could reflect a superimposed infectious process or alveolar edema. 4. Mildly enlarged mediastinal and bilateral hilar lymph nodes which are likely reactive or related to pulmonary edema.
[2020-12-12] MEDS ORDERED: FUROSEMIDE 20 MG in SYRINGE 0 ML IV ONE (09:33)
[2020-12-12] MEDS ORDERED: POTASSIUM CHLORIDE CRTAB 20 MEQ TABCR PO SCH (10:00)
[2020-12-12] MEDS: SPIRONOLACTONE 25 MG TAB PO SCH (10:42)
[2020-12-12] MEDS: NITROGLYCERIN 2% OINTMENT 30GM TUBE EXT SCH ×2 (12:14→17:57)
[2020-12-12] MEDS ORDERED: METOPROLOL TARTRATE 25 MG TAB PO ONE (16:25)
[2020-12-12] MEDS: cefTRIAXone SODIUM 2,000 MG in DEXTROSE 5% 50 ML IV SCH (17:00)
[2020-12-12] MEDS: FUROSEMIDE 60 MG in SYRINGE 0 ML IV SCH (17:00)
--- NOTE | 2020-12-12 17:12 | Hospitalist Progress Note ---
Date of Service December 12, 2020 Assessment & Plan (1) Acute systolic (congestive) heart failure: (2) Pleural effusion: (3) Pulmonary edema: (4) Pericardial effusion: Plan: Present on admission with worsening SOB and orthopnea CTA chest showed no pulmonary emboli identified. Moderate bilateral pleural effusions. Associated bilateral lower lobe opacities favor atelectasis although pneumonia could appear similar. Small pericardial effusion. Interlobular septal thickening consistent with interstitial pulmonary edema. Bilateral upper lobe ground glass opacities could reflect a superimposed infectious process or alveolar edema. Echo showed regional wall motion abnormality, pericardial effusion and mitral regurgitation are not present. Thinning and akinesis of the anteroseptal and inferoseptal schneider. Severe LVH of remaining wall segment with moderate global hypokinesis. Mild to moderate global hypokinesis. large pericardial effusion with no echocardiographic indication of cardiac tamponade. Was starting on Lasix 40mg IV BID on admission Cardiology on board Lasix increased to 60mg BID and spironolactone 25mg added Continue monitor I/O Case discussed with cardiology might consider to proceed with cardiac cath during this admission Will make NPO after midnight Continue monitor BMP while on IV lasix and spironolactone Continue monitor closely Possible pneumonia CTA showed Bilateral upper lobe ground glass opacities could reflect a supe rimposed infectious process or alveolar edema. Starting onIV Zosyn and p.o. doxycycline. Zosyn changed to Ceftriaxone and continue doxycycline WBC and lactate within normal Blood cx pending Will check Procalcitonin in am Will repeat CXR in am Uncontrolled DM type 2 Most recent Hba1c 10 Pt said that he has not been taking his insulin due to cost Will continue to hold metformin On insulin sliding scale Continue monitor BS Obstructive sleep apnea Continue CPAP at bedtime. Elevated troponin Most likely secondary to demand ischemia due to acuet CHF exacerbation and BALJEET Troponin on admission 0.049 -> 0.050, then trending down to 0.035 Echo showed regional wall motion abnormality. Thinning and akinesis of the anteroseptal and inferoseptal schneider. Severe LVH of remaining wall segment with moderate global hypokinesis. Mild to moderate global hypokinesis. Continue aspirin and metoprolol Acute kidney injury Creatinine on admission 1.4, baseline creatinine around 1 in 2018 labs, Monitor BMP while on Lasix and spironolactone Mild Elevated Liver enzymes AST 81 and ALT 135 on admission Liver enzymes trending down with AST 42 and ALT 112 Continue monitor Liver enzymes Hypertensive urgency BP on admission 207/148 Receive IV labetalol and nitroglycerin paste Continue his home losartan. Continue BP monitor History of cerebrovascular accident: Continue aspirin DVT px on Lovenox. Code status Full code Admission and Anticipated Discharge Date Admission Date: December 11, 2020 Subjective Patient was seen and examined for follow-up of shortness of breath Lying in bed with no acute distress Patient said that his breathing is much better He said that he has been diuresis very well He said that he probably used the bathroom about 10 times already to urinate Denies any chest pain, palpitation, dizziness and SOB Physical Exam Physical Exam: General- No acute distress Head- atraumatic Eyes- PERRL, EOMI, ENT- oropharynx clear Neck- supple, no JVD Lungs- clear to auscultation Heart- regular rhythm; no murmur Abdomen- normal bowel sounds, soft, nontender Extremities- no calf tenderness Neuro- alert, oriented x 3; PERRL, EOMI; no facial palsy; no dysarthria Skin- warm & dry Results & Data Results & Data ([facility]) Vital Signs (Past 12 Hours) Vital Signs Temp Pulse Resp BP Pulse Ox 12/12/20 15:23 37.0 C 103 H 17 148/94 H 91 12/12/20 11:14 36.5 C 93 H 18 150/96 H 93 (1) Pulmonary edema Chronicity: acute Qualified Code(s): J81.0 - Acute pulmonary edema
--- NOTE | 2020-12-12 18:51 | Electrocardiogram Report ---
Test Reason : Blood Pressure : / mmHG Vent. Rate : 124 BPM Atrial Rate : 124 BPM P-R Int : 140 ms QRS Dur : 074 ms QT Int : 324 ms P-R-T Axes : 034 045 051 degrees QTc Int : 465 ms Sinus tachycardia Possible Left atrial enlargement Left ventricular hypertrophy Abnormal ECG When compared with ECG of 06-FEB-2018 12:21, No significant change was found Confirmed by Gustavo Cota ([id number]) on 12/12/2020 6:51:22 PM Referred By: REFERRED SELF Confirmed By:Donald Cota
--- NOTE | 2020-12-12 18:58 | Electrocardiogram Report ---
Test Reason : Blood Pressure : / mmHG Vent. Rate : 084 BPM Atrial Rate : 084 BPM P-R Int : 156 ms QRS Dur : 090 ms QT Int : 490 ms P-R-T Axes : 053 045 077 degrees QTc Int : 579 ms Poor data quality, interpretation may be adversely affected Normal sinus rhythm Moderate voltage criteria for LVH, may be normal variant Prolonged QT Abnormal ECG When compared with ECG of 11-DEC-2020 17:38, (unconfirmed) T wave inversion more evident in Anterior leads Confirmed by Gustavo Cota ([id number]) on 12/12/2020 6:57:46 PM Referred By: REFERRED SELF Confirmed By:Donald Cota
[2020-12-12] MEDS ORDERED: Nursing to Pharmacy Communication SCH (19:45)
[2020-12-12] MEDS ORDERED: METOPROLOL SUCC 25MG EXT REL TAB PO SCH (21:00)
[2020-12-13] MEDS ORDERED: POTASSIUM CHLORIDE CRTAB 20 MEQ TABCR PO STA (02:58)
[2020-12-13] MEDS: METOPROLOL SUCC 25MG EXT REL TAB PO SCH ×2 (03:07→20:44)
[2020-12-13 03:37] LABS: Basophils # (auto) 0.04 K/uL (0-0.2); Basophils % (auto) 0.5 %; Eosinophils # (auto) 0.25 K/uL (0-0.5); Hematocrit (blood only) 42.1 % (42-52); Hemoglobin 14.3 g/dL (14.0-18.0); Lymphocytes # (auto) 2.42 K/uL (1.2-3.4); Lymphocytes % (auto) 29.3 %; Mean Corpuscular Hemoglobin 28.7 pg (25-34); Mean Corpuscular Volume 84.4 fL (80-100); Monocytes # (auto) 0.91 K/uL (0.11-0.59); Neutrophils # (auto) 4.65 K/uL (1.4-6.5); Neutrophils % (auto) 56.2 %; Platelet Count 149 K/uL (130-400); RDW Coefficient of Variation 13.4 % (11.5-14.5); RDW Standard Deviation 41.4 fL (36.4-46.3); Red Blood Count 4.99 M/uL (4.7-6.1); White Blood Count 8.27 K/uL (4.8-10.8)
[2020-12-13 03:56] LABS: BUN Creatinine Ratio 11.2 (10-20); Calcium 8.3 mg/dl (8.5-10.1); Creatinine Clr Calc Pharmacy 73.9 ml/min; Est GFR (Non-African American) 49.2 ml/min; Magnesium 2.1 mg/dl (1.8-2.4); Potassium 3.7 mmol/L (3.5-5.1)
[2020-12-13] MEDS: NITROGLYCERIN 2% OINTMENT 30GM TUBE EXT SCH ×5 (05:50→23:48)
[2020-12-13] MEDS: ENOXAPARIN INJ 40 MG/0.4 ML SYR SQ SCH (05:50)
--- NOTE | 2020-12-13 07:27 | XRay Report ---
INDICATION: MN ^f/u. TECHNIQUE: Single frontal radiograph of the chest was obtained. Comparison: Comparison is made to CTA chest 12/11/2020 FINDINGS: No lines and tubes are seen. The cardiomediastinal silhouette is normal. Left lower lung and retrocar diac opacity and faint right lower lobe opacity seen. There is a moderate left pleural effusion. IMPRESSION: Bibasilar airspace opacities, left greater than right, likely representing layering pleural effusion with without superimposed atelectasis, pneumonia, and/or aspiration. ACT 112: Negative or not required by law. Electronically signed by: Devyn Dela Cruz M.D. 12/13/2020 7:26 AM
[2020-12-13] MEDS: INSULIN ASPART 100 UNITS/ML 3 ML PEN SC SCH ×4 (08:24→20:41)
[2020-12-13] MEDS: BENZONATATE 100 MG CAPSULE PO SCH ×3 (08:25→20:44)
[2020-12-13] MEDS: SPIRONOLACTONE 25 MG TAB PO SCH (08:26)
[2020-12-13] MEDS: FUROSEMIDE 60 MG in SYRINGE 0 ML IV SCH ×2 (08:26→17:03)
[2020-12-13] MEDS: LOSARTAN POTASSIUM 50 MG TAB PO SCH (08:26)
[2020-12-13] MEDS: ASPIRIN 81 MG ECTAB PO SCH (08:26)
[2020-12-13] MEDS: DOXYCYCLINE HYCLATE 100 MG CAP PO SCH ×2 (08:26→20:44)
--- NOTE | 2020-12-13 10:17 | Hospitalist Progress Note ---
Date of Service December 13, 2020 Assessment & Plan (1) Acute systolic (congestive) heart failure: (2) Pleural effusion: (3) Pulmonary edema: (4) Pericardial effusion: Plan: Present on admission with worsening SOB and orthopnea CTA chest showed no pulmonary emboli identified. Moderate bilateral pleural effusions. Associated bilateral lower lobe opacities favor atelectasis although pneumonia could appear similar. Small pericardial effusion. Interlobular septal thickening consistent with interstitial pulmonary edema. Bilateral upper lobe ground glass opacities could reflect a superimposed infectious process or alveolar edema. Echo showed regional wall motion abnormality, pericardial effusion and mitral regurgitation are not present. Thinning and akinesis of the anteroseptal and inferoseptal schneider. Severe LVH of remaining wall segment with moderate global hypokinesis. Mild to moderate global hypokinesis. large pericardial effusion with no echocardiographic indication of cardiac tamponade. Was starting on Lasix 40mg IV BID on admission Cardiology on board Continue Lasix 60mg BID and spironolactone 25mg daily Continue monitor I/O- Output about 5L so far Case discussed with cardiology Plan for cardiac cath tomorrow Will make NPO after midnight Continue monitor BMP while on IV lasix and spironolactone Continue monitor closely Possible pneumonia CTA showed Bilateral upper lobe ground glass opacities could reflect a superimposed infectious process or alveolar edema. Starting onIV Zosyn and p.o. doxycycline. Zosyn changed to Ceftriaxone and continue doxycycline WBC and lactate within normal Blood cx no growth and procalcitonin normal Repeat CXR showed bibasilar airspace opacities, left greater than right, likely representing layering pleural effusion with without superimposed atelectasis, pneumonia, and/or aspiration. Will consider to D/C abx Uncontrolled DM type 2 Most recent Hba1c 10 Pt said that he has not been taking his insulin due to cost Will continue to hold metformin On insulin sliding scale Continue monitor BS Obstructive sleep apnea Continue CPAP at bedtime. Elevated troponin Most likely secondary to demand ischemia due to acuet CHF exacerbation and BALJEET Troponin on admission 0.049 -> 0.050, then trending down to 0.035 Echo showed regional wall motion abnormality. Thinning and akinesis of the anteroseptal and inferoseptal schneider. Severe LVH of remaining wall segment with moderate global hypokinesis. Mild to moderate global hypokinesis. Continue aspirin and metoprolol Acute kidney injury Creatinine on admission 1.4, baseline creatinine around 1 in 2018 labs Creatinine bumped to 1.5 today Monitor BMP while on Lasix and spironolactone Mild Elevated Liver enzymes AST 81 and ALT 135 on admission Liver enzymes trending down with AST 42 and ALT 112 Continue monitor Liver enzymes Hypertensive urgency BP on admission 207/148 Receive IV labetalol and nitroglycerin paste Continue his home losartan. Continue BP monitor History of cerebrovascular accident: Continue aspirin DVT px on Lovenox. Code status Full code Admission and Anticipated Discharge Date Admission Date: December 11, 2020 Subjective Patient was seen and examined for follow-up of shortness of breath Lying in bed with no acute distress Pt said that he has been using the bathroom every hour He said that he has been diuresis very well His breathing is much better Denies any chest pain, palpitation, dizziness and SOB Physical Exam Physical Exam: General- No acute distress Head- atraumatic Eyes- PERRL, EOMI, ENT- oropharynx clear Neck- supple, no JVD Lungs- clear to auscultation Heart- regular rhythm; no murmur Abdomen- normal bowel sounds, soft, nontender Extremities- no calf tenderness Neuro- alert, oriented x 3; PERRL, EOMI; no facial palsy; no dysarthria Skin- warm & dry Results & Data Results & Data ([facility]) Vital Signs (Past 12 Hours) Vital Signs Temp Pulse Pulse Resp BP Pulse Ox 12/13/20 09:45 90 12/13/20 07:59 36.8 C 95 H 18 138/92 98 12/13/20 04:09 36.7 C 95 H 16 97 12/13/20 04:07 36.7 C 95 H 16 140/95 97 12/13/20 03:05 19 12/13/20 02:30 93 H 20 138/92 98 12/12/20 23:16 36.8 C 97 H 16 142/92 H 97 (1) Pulmonary edema Chronicity: acute Qualified Code(s): J81.0 - Acute pulmonary edema
--- NOTE | 2020-12-13 10:33 | Cardiology Progress Note ---
Date of Service December 13, 2020 Assessment & Plan (1) Acute systolic (congestive) heart failure: (2) Pleural effusion: (3) Cardiomyopathy: (4) Mitral regurgitation: (5) History of CVA (cerebrovascular accident): (6) Hypertension: (7) Diabetes: (8) Pericardial effusion: Plan: Pt presents with acute decompensated LV systolic heart failure unclear etiology with LV EF of 25-30% echo from 2018 reportedly showed normal LV systolic function and normal wall thickness curious wall motion and LVH pattern on echo performed today, suspicious for hypertensive heart disease with possible inferior/septal infarct pattern Diuresing well overnight with now 4 L negative. Clinically is improved as well. We will continue to diurese today and plan for right and left cardiac catheterization tomorrow. Okay to eat today but n.p.o. after midnight. Slight decline in renal function and will continue to follow with diuresis Continue current medications Anticipate initiating Entresto after cardiac catheterization. strict I/O's and daily weights cont tele pathophysiology and treatment options for possible etiologies discussed at great length with the patient and his , by phone Admission and Anticipated Discharge Date Admission Date: December 11, 2020 Subjective Patient seen and examined, chart reviewed. States he is feeling much better t reic. Has been diuresing briskly. States that shortness of breath has improved as well as his nonproductive cough. Continues to deny chest pain, palpitations, lightheadedness or dizziness. Telemetry reviewed: Normal sinus rhythm without arrhythmia or significant ectopy. Review of Systems Review of Systems: All systems reviewed & are unremarkable except as noted in HPI & below Physical Exam Physical Exam: General: Awake, alert and oriented x 3. No acute distress. HEENT: Normocephalic, atraumatic. Pupils equal, round and reactive to light and accommodation. Extraocular muscles are intact. Anicteric sclera. Moist mucous membranes. Neck: No JVD. No bruit. Cardiovascular: Regular. Positive S-4. Normal S-1 and S-2. No S-3. 3/6 holosystolic ejection murmur, left sternal border, mid-clavicular line with radiation to the axilla. No rubs. Pulmonary: Poor air movement in the bilateral bases with bilateral rales. No wheezing or rhonchi. Abdomen: Bowel sounds x 4, soft. No rebound, guarding or tenderness. No organomegaly. Extremities: No clubbing, cyanosis or edema. +2 pedal pulses bilaterally. Skin: Warm and dry. Results & Data ([facility]) Vital Signs (Past 12 Hours) Vital Signs Temp Pulse Pulse Resp BP Pulse Ox 12/13/20 09:45 90 12/13/20 07:59 36.8 C 95 H 18 138/92 98 12/13/20 04:09 36.7 C 95 H 16 97 12/13/20 04:07 36.7 C 95 H 16 140/95 97 12/13/20 03:05 19 12/13/20 02:30 93 H 20 138/92 98 12/12/20 23:16 36.8 C 97 H 16 142/92 H 97
[2020-12-13] MEDS: cefTRIAXone SODIUM 2,000 MG in DEXTROSE 5% 50 ML IV SCH (17:03)
--- NOTE | 2020-12-13 18:29 | Electrocardiogram Report ---
Test Reason : Blood Pressure : / mmHG Vent. Rate : 094 BPM Atrial Rate : 094 BPM P-R Int : 154 ms QRS Dur : 086 ms QT Int : 418 ms P-R-T Axes : 055 047 066 degrees QTc Int : 522 ms Normal sinus rhythm Possible Left atrial enlargement Abnormal ECG When compared with ECG of 12-DEC-2020 06:44, QT has shortened Confirmed by Gustavo Cota ([id number]) on 12/13/2020 6:29:38 PM Referred By: REFERRED SELF Confirmed By:Donald Cota
[2020-12-14] MEDS: NITROGLYCERIN 2% OINTMENT 30GM TUBE EXT SCH ×4 (06:00→23:29)
[2020-12-14] MEDS: ENOXAPARIN INJ 40 MG/0.4 ML SYR SQ SCH (06:00)
[2020-12-14 07:07] LABS: BUN Creatinine Ratio 13.2 (10-20); Calcium 8.6 mg/dl (8.5-10.1); Creatinine Clr Calc Pharmacy 70.7 ml/min; Est GFR (African American) 61.2 ml/min; Est GFR (Non-African American) 52.8 ml/min; Potassium 3.7 mmol/L (3.5-5.1)
--- NOTE | 2020-12-14 07:41 | Pre Anesthesia Assessment ---
Date of Service December 14, 2020 Pre Sedation Assessment Vital Signs Temp Pulse Pulse Resp BP BP Pulse Ox 12/14/20 07:30 37.0 C 99 H 18 138/109 H 90 12/14/20 07:23 36.7 C 97 H 18 150/90 H 146/102 H 99 12/14/20 04:15 36.7 C 97 H 20 156/111 H 148/106 H 98 12/14/20 00:25 102 H 12/13/20 23:45 36.7 C 101 H 19 150/98 H 100 12/13/20 23:17 101 H 12/13/20 19:27 37.2 C 102 H 18 134/91 92 12/13/20 15:25 36.9 C 92 H 18 136/95 93 12/13/20 11:40 37.0 C 95 H 18 156/101 H 90 12/13/20 09:45 90 Cardiovascular RRR, no murmur, no edema Respiratory normal respiratory effort, lungs clear to auscultation Pre-Sedation Airway Assessment Smoking Status: Former smoker Mallampati Class: II ASA: ASA3 Procedure Planning Contraindications for Sedation: none Current Medications Reviewed: Yes Notes The planned sedation has been discussed with the patient. Informed Consent was obtained. I have identified the patient, determined the appropriateness of sedation and have assessed the patient immediately prior to the procedure. All medicine(s) and interventions are by my order.
[2020-12-14] MEDS: INSULIN ASPART 100 UNITS/ML 3 ML PEN SC SCH ×4 (07:55→21:05)
[2020-12-14] MEDS ORDERED: HEPARIN (PORCINE) 1000 UNIT/ML 10 ML (CATH LAB USE ONLY) ONE (08:08)
[2020-12-14] MEDS ORDERED: niCARdipine HCL INJ 2.5 MG/ML 10 ML AMP ONE (08:08)
[2020-12-14] MEDS ORDERED: MIDAZOLAM HCL 1 MG/ML 2ML VIAL ONE (08:08)
[2020-12-14] MEDS ORDERED: fentaNYL citrate 100 MCG/2 ML VIAL ONE (08:09)
[2020-12-14] MEDS ORDERED: NITROGLYCERIN/D5W 100MCG/ML 20ML SYR ONE (08:09)
--- NOTE | 2020-12-14 09:13 | Post Anesthesia Assessment ---
Date of Service December 14, 2020 Post Sedation Assessment Vital Signs Temp Pulse Pulse Resp BP BP Pulse Ox 12/14/20 07:30 37.0 C 99 H 18 138/109 H 90 12/14/20 07:23 36.7 C 97 H 18 150/90 H 146/102 H 99 12/14/20 04:15 36.7 C 97 H 20 156/111 H 148/106 H 98 12/14/20 00:25 102 H 12/13/20 23:45 36.7 C 101 H 19 150/98 H 100 12/13/20 23:17 101 H 12/13/20 19:27 37.2 C 102 H 18 134/91 92 12/13/20 15:25 36.9 C 92 H 18 136/95 93 12/13/20 11:40 37.0 C 95 H 18 156/101 H 90 12/13/20 09:45 90 Recovery Score Activity: Moves 4 extremities Respiration: Deep Breath/Cough Circulation: +/-20% PreAnes Value Consciousness: Fully Awake Oxygen Saturation: > 92% On Room Air Discharge Sedation Level of Care: Phase I Post Sedation Plan On clinical assessment, the patient appears to have tolerated the sedation without complications. Patient is recovering as anticipated. Patient will continue to be monitored by nursing and may be discharged when sedation discharge criteria are met per below protocol. Upon Completions of procedure up to 15 minutes continue every 5 minute vital signs and the P.A.R. score; then discharge to a Phase I or Fast Track to Phase II per the following guidelines: * Discharge Patient to appropriate Phase II area if PAR is 8 or greater or return to pre- procedure baseline. The post - procedure orders will be as directed. * If PAR score is less than 8 or not return to pre-procedure baseline then patient will follow Phase I monitoring till PAR is reached for Phase II. The Phase I may be done in procedure room or may call to secure a Phase I area. * If naloxone or flumazenil are used for reversal, hold in Phase I for continued monitoring from when last reversal dose was given for a minimum of 60 minutes or longer pending the nurse and/or physician discretion of patient condition before discharge to Phase II. Please call the Sedation Physician to re-evaluate and complete post-note for discharge to Phase II area. Do NOT discharge from procedure sedation or Phase 1 until post- sedation evaluation note is complete by procedure /sedation MD Sedation Discharge Instructions to be given to the patient at discharge to home.
[2020-12-14 09:20] LABS: iSTAT Arterial Blood Gas HCO3 27 meg/L (19-24); iSTAT Arterial Blood Gas pCO2 41 mmHg (35-46); iSTAT Arterial Blood Gas pH 7.43 (7.35-7.45); iSTAT Arterial Blood Gas pO2 < 32 mmHg (80-95); iSTAT Carbon Dioxide 28 mmol/L (24-31); iSTAT Hematocrit 44 % (42-52); iSTAT Potassium 3.4 mmol/L (3.3-5.0); iSTAT Sodium 141 mmol/L (135-144)
[2020-12-14 09:20] LABS: iSTAT Arterial Blood Gas HCO3 26 meg/L (19-24); iSTAT Arterial Blood Gas pCO2 37 mmHg (35-46); iSTAT Arterial Blood Gas pH 7.45 (7.35-7.45); iSTAT Arterial Blood Gas pO2 53 mmHg (80-95); iSTAT Carbon Dioxide 27 mmol/L (24-31); iSTAT Hematocrit 43 % (42-52); iSTAT Hemoglobin 14.6 g/dl (14.0-18.0); iSTAT Potassium 3.3 mmol/L (3.3-5.0); iSTAT Sodium 141 mmol/L (135-144)
--- NOTE | 2020-12-14 09:23 | Cardiac Catheterization ---
Cardiac Cath Procedure Brief Procedure Date December 14, 2020 Pre-Procedure Diagnosis Pre-Procedure Diagnosis: CHF and Cardiomyopathy AUC Score AUC Score: 7 Post-Procedure Diagnosis Post-Procedure Diagnosis: Mild CAD, Decreased LV Systolic Function and Elevated Intracardiac Pressures Procedure(s) Performed Procedure(s) Performed: Coronary Angiography, Left Heart Cath, Right Heart Cath and LV Angiography Heavy Truck Technician Vishal Fernando MD Front Desk Agent(s) Joan Méndez Estimated Blood Loss Estimated Blood Loss: <15cc Medication(s) Medication(s): Fentanyl (12.5 mcg IV), Heparin (5000 units IV), Lidocaine 1% (Local infiltration access site), Nicardipine (250 mcg intra-arterial after arterial sheath insertion) and Versed (1 mg IV) Preliminary Findings Right dominant coronary anatomy with mild luminal irregularities and no obstructive disease Severe diffuse LV dysfunction EF 15 to 20% Mild mitral insufficiency Mild to moderate pulmonary hypertension secondary to elevated left trigger end- diastolic pressure Recommendations Recommendations: Medical Therapy and/or Counseling Specimens Specimens: None Fluids (cc crystalloids) Fluids (cc crystalloids): 80 Anesthesia Start time: 822 stop time: 913 Procedural Complication(s) None Disposition PCU
--- NOTE | 2020-12-14 09:38 | Cardiac Catheterization ---
Cardiac Cath Procedure Full Procedure Date December 14, 2020 Pre-Procedure Diagnosis Pre-Procedure Diagnosis: CHF and Cardiomyopathy AUC Score AUC Score: 7 Post-Procedure Diagnosis Post-Procedure Diagnosis: Mild CAD, Decreased LV Systolic Function and Elevated Intracardiac Pressures Procedure(s) Performed Procedure(s) Performed: Coronary Angiography, Left Heart Cath, Right Heart Cath and LV Angiography Carpenter'S Helper Vishal Fernando MD Instructional Design Specialist(s) Joan Méndez Estimated Blood Loss Estimated Blood Loss: <15cc Medication(s) Medication(s): Fentanyl (12.5 mcg IV), Heparin (5000 units IV), Lidocaine 1% (Local infiltration access site), Nicardipine (250 mcg intra-arterial after arterial sheath insertion) and Versed (1 mg IV) Summary of Findings Right dominant coronary anatomy with mild luminal irregularities and no obstructive disease Severe diffuse LV dysfunction EF 15 to 20% Mild mitral insufficiency Moderate pulmonary hypertension secondary to elevated left ventricular end- diastolic pressure Systolic and diastolic hypertension No transaortic or mitral valve gradients, no equalization of pressures Hemodynamics Rest Ao:: 147/102/124 Final Ao: 154/114/120 LV: 164/10/26, LVEDP 26 RA: 6/4 RV: 40/1/4 PA: 42/18, mean 29 PW: Mean 24 V wave 30 Recommendations Recommendations: Medical Therapy and/or Counseling Specimens Specimens: None Radiation Exposure (mGy) 1407 Contrast (mls) 110 Fluids (cc crystalloids) Fluids (cc crystalloids): 80 Anesthesia Start time: 822 stop time: 913 Procedural Complication(s) None Disposition PCU I attest to the content of the Intraoperative Record and any orders documented therein. Any exceptions are noted below. ACC Data: Life Skills Coach Cardiac Status Clinical evaluation leading to the procedure 50-year-old male presented with new onset congestive heart failure and dilated cardiomyopathy CAD Presenation: No Sxs, No angina Heart Failure: NYHA Class: CCS IV Cardiogenic Shock within 24 Hours: No Cardiac Arrest within 24 Hours: No Imaging Studies Past 6 Months: Yes Stress Studies Past 6 Months: No Standard Exercise Test: No Stress Echocardiogram: No Stress Testing w/SPECT MPI: No Cardiac CTA: No Coronary Anatomy Dominant: Right Left Main (% Stenosis): Normal LAD (% Stenosis): Mid (Mild irregularities) D1 (% Stenosis): Normal D2 (% Stenosis): Proximal (50, small vessel) Circumflex (% Stenosis): Mid (30-40) L PL1 (% Stenosis): Normal (Large bifurcating) RCA (% Stenosis): Normal R PDA (% Stenosis): Normal R PL1 (% Stenosis): Normal Ramus (% Stenosis): Proximal (40) Left Ventricular Angiography EF (%): 15-20 Mitral Regurgitation: 1+ Diagnostic Physicians Name: Vishal Fernando MD Status: Urgent Closure Device Percutaneous Entry Location: Radial Closure Device: Radial Band Recommendations: Medical Therapy and/or Counseling
[2020-12-14] MEDS: SODIUM CHLORIDE 0.9% 1000ML 1,000 ML IV SCH ×2 (09:58→21:09)
--- NOTE | 2020-12-14 10:09 | Cardiology Progress Note ---
Date of Service December 14, 2020 Assessment & Plan (1) Acute systolic (congestive) heart failure: (2) Pleural effusion: (3) Cardiomyopathy: (4) Mitral regurgitation: (5) History of CVA (cerebrovascular accident): (6) Hypertension: (7) Diabetes: (8) Pericardial effusion: Plan: Pt presents with acute decompensated LV systolic heart failure unclear etiology with LV EF of 25-30% echo from 2018 reportedly showed normal LV systolic function and normal wall thi ckness curious wall motion and LVH pattern on echo performed today, suspicious for hypertensive heart disease with possible inferior/septal infarct pattern Diuresing well overnight with now 4 L negative. Clinically is improved as well. We will continue to diurese today and plan for right and left cardiac catheterization tomorrow. Okay to eat today but n.p.o. after midnight. Slight decline in renal function and will continue to follow with diuresis Continue current medications Anticipate initiating Entresto after cardiac catheterization. strict I/O's and daily weights cont tele pathophysiology and treatment options for possible etiologies discussed at great length with the patient and his , by phone Admission and Anticipated Discharge Date Admission Date: December 11, 2020 Subjective Patient seen and examined, chart reviewed. States he is feeling much better today. Has been diuresing briskly. States that shortness of breath has improved as well as his nonproductive cough. Continues to deny chest pain, palpitations, lightheadedness or dizziness. Telemetry reviewed: Normal sinus rhythm without arrhythmia or significant ectopy. Review of Systems Review of Systems: All systems reviewed & are unremarkable except as noted in HPI & below Physical Exam Physical Exam: General: Awake, alert and oriented x 3. No acute distress. HEENT: Normocephalic, atraumatic. Pupils equal, round and reactive to light and accommodation. Extraocular muscles are intact. Anicteric sclera. Moist mucous membranes. Neck: No JVD. No bruit. Cardiovascular: Regular. Positive S-4. Normal S-1 and S-2. No S-3. 3/6 holosystolic ejection murmur, left sternal border, mid-clavicular line with radiation to the axilla. No rubs. Pulmonary: Poor air movement in the bilateral bases with bilateral rales. No wheezing or rhonchi. Abdomen: Bowel sounds x 4, soft. No rebound, guarding or tenderness. No organomegaly. Extremities: No clubbing, cyanosis or edema. +2 pedal pulses bilaterally. Skin: Warm and dry. Results & Data ([facility]) Vital Signs (Past 12 Hours) Vital Signs Temp Pulse Pulse Resp BP BP Pulse Ox 12/14/20 09:35 99 H 20 164/109 H 93 12/14/20 09:20 100 H 20 138/109 H 97 12/14/20 07:30 37.0 C 99 H 18 138/109 H 90 12/14/20 07:23 36.7 C 97 H 18 150/90 H 146/102 H 99 12/14/20 04:15 36.7 C 97 H 20 156/111 H 148/106 H 98 12/14/20 00:25 102 H 12/13/20 23:45 36.7 C 101 H 19 150/98 H 100 12/13/20 23:17 101 H
[2020-12-14] MEDS: BENZONATATE 100 MG CAPSULE PO SCH ×3 (10:24→21:08)
[2020-12-14] MEDS ORDERED: METOPROLOL SUCC 25MG EXT REL TAB PO ONE (10:30)
[2020-12-14] MEDS: FUROSEMIDE 60 MG in SYRINGE 0 ML IV SCH ×2 (10:48→17:01)
[2020-12-14] MEDS: LOSARTAN POTASSIUM 50 MG TAB PO SCH (11:29)
[2020-12-14] MEDS: METOPROLOL SUCC 25MG EXT REL TAB PO SCH (11:30)
[2020-12-14] MEDS: SPIRONOLACTONE 25 MG TAB PO SCH (11:36)
[2020-12-14] MEDS: ASPIRIN 81 MG ECTAB PO SCH (11:36)
[2020-12-14] MEDS: DOXYCYCLINE HYCLATE 100 MG CAP PO SCH ×2 (11:36→21:07)
[2020-12-14] MEDS: POTASSIUM CHLORIDE CRTAB 20 MEQ TABCR PO SCH (11:37)
[2020-12-14] MEDS: hydroCHLOROthiazide 25 MG TAB PO SCH (11:38)
[2020-12-14] MEDS ORDERED: METOPROLOL TARTRATE 25 MG TAB PO STA (16:34)
[2020-12-14] MEDS: cefTRIAXone SODIUM 2,000 MG in DEXTROSE 5% 50 ML IV SCH (17:01)
[2020-12-14] MEDS ORDERED: METOPROLOL SUCC 50MG EXT REL TAB PO SCH (21:00)
[2020-12-14] MEDS: METOPROLOL SUCC 50MG EXT REL TAB PO SCH (21:08)
--- NOTE | 2020-12-14 21:26 | Hospitalist Progress Note ---
Date of Service December 14, 2020 Assessment & Plan (1) Acute systolic (congestive) heart failure: (2) Pleural effusion: (3) Pulmonary edema: (4) Pericardial effusion: Plan: Present on admission with worsening SOB and orthopnea CTA chest showed no pulmonary emboli identified. Moderate bilateral pleural effusions. Associated bilateral lower lobe opacities favor atelectasis although pneumonia could appear similar. Small pericardial effusion. Interlobular septal thickening consistent with interstitial pulmonary edema. Bilateral upper lobe ground glass opacities could reflect a superimposed infectious process or alveolar edema. Echo showed regional wall motion abnormality, pericardial effusion and mitral regurgitation are not present. Thinning and akinesis of the anteroseptal and inferoseptal schneider. Severe LVH of remaining wall segment with moderate global hypokinesis. Mild to moderate global hypokinesis. large pericardial effusion with no echocardiographic indication of cardiac tamponade. Status post cardiac cath showing no significant vessel disease We will hold morning dose of Lasix and Losartan due to recent contrast from cardiac cath Cardiology on board Case discussed with cardiology recommended to start on hydrochlorothiazide Plan to initiate Entresto in the morning if renal function is stable Continue monitor I/O- Output about 5L so far Continue monitor BMP closely Possible pneumonia CTA showed Bilateral upper lobe ground glass opacities could reflect a superimposed infectious process or alveolar edema. Starting onIV Zosyn and p.o. doxycycline. Zosyn changed to Ceftriaxone and continue doxycycline WBC and lactate within normal Blood cx no growth and procalcitonin normal Repeat CXR showed bibasilar airspace opacities, left greater than right, likely representing layering pleural effusion with without superimposed atelectasis, pneumonia, and/or aspiration. Will consider to D/C abx Uncontrolled DM type 2 Most recent Hba1c 10 Pt said that he has not been taking his insulin due to cost Will continue to hold metformin On insulin sliding scale Continue monitor BS Obstructive sleep apnea Continue CPAP at bedtime. Elevated troponin Most likely secondary to demand ischemia due to acuet CHF exacerbation and BALJEET Troponin on admission 0.049 -> 0.050, then trending down to 0.035 Echo showed regional wall motion abnormality. Thinning and akinesis of the anteroseptal and inferoseptal schneider. Severe LVH of remaining wall segment with moderate global hypokinesis. Mild to moderate global hypokinesis. Continue aspirin and metoprolol Acute kidney injury Creatinine on admission 1.4, baseline creatinine around 1 in 2018 labs Creatinine bumped to 1.5 today Monitor BMP while on Lasix and spironolactone Mild Elevated Liver enzymes AST 81 and ALT 135 on admission Liver enzymes trending down with AST 42 and ALT 112 Continue monitor Liver enzymes Hypertensive urgency BP on admission 207/148 Receive IV labetalol and nitroglycerin paste Continue his home losartan. Continue BP monitor History of cerebrovascular accident: Continue aspirin DVT px on Lovenox. Code status Full code Admission and Anticipated Discharge Date Admission Date: December 11, 2020 Subjective Patient was seen and examined for follow-up of shortness of breath Lying in bed with no acute distress Patient said his breathing feels much better He had a cardiac cath done this morning that was negative for any significant vessel disease Denies any chest pain, palpitation, dizziness, shortness of breath. Physical Exam Physical Exam: General- No acute distress Head- atraumatic Eyes- PERRL, EOMI, ENT- oropharynx clear Neck- supple, no JVD Lungs- clear to auscultation Heart- regular rhythm; no murmur Abdomen- normal bowel sounds, soft, nontender Extremities- no calf tenderness Neuro- alert, oriented x 3; PERRL, EOMI; no facial palsy; no dysarthria Skin- warm & dry Results & Data Results & Data ([facility]) Vital Signs (Past 12 Hours) Vital Signs Temp Pulse Resp BP Pulse Ox 12/14/20 20:17 37.0 C 102 H 19 156/115 H 93 12/14/20 17:51 147/94 H 12/14/20 17:21 165/111 H 12/14/20 15:36 36.7 C 100 H 20 146/96 H 96 12/14/20 14:12 90 16 146/102 H 96 12/14/20 13:33 158/110 H 12/14/20 13:29 85 16 152/115 H 96 12/14/20 12:29 98 H 18 159/117 H 96 12/14/20 11:33 36.7 C 98 H 18 163/116 H 95 12/14/20 10:29 100 H 18 152/102 H 96 12/14/20 09:59 102 H 18 151/106 H 93 12/14/20 09:35 99 H 20 164/109 H 93 (1) Pulmonary edema Chronicity: acute Qualified Code(s): J81.0 - Acute pulmonary edema
[2020-12-15] MEDS: NITROGLYCERIN 2% OINTMENT 30GM TUBE EXT SCH ×2 (05:11→12:11)
[2020-12-15] MEDS: ENOXAPARIN INJ 40 MG/0.4 ML SYR SQ SCH (05:11)
[2020-12-15] MEDS: SODIUM CHLORIDE 0.9% 1000ML 1,000 ML IV SCH (05:12)
[2020-12-15 06:39] LABS: Albumin Level 3.2 gm/dl (3.4-5.0); BUN Creatinine Ratio 13.7 (10-20); Calcium 8.9 mg/dl (8.5-10.1); Creatinine Clr Calc Pharmacy 74.7 ml/min; Est GFR (African American) 65.4 ml/min; Est GFR (Non-African American) 56.4 ml/min; Potassium 3.7 mmol/L (3.5-5.1)
[2020-12-15 06:43] LABS: Albumin Globulin Ratio 0.8 (0.9-2); Bilirubin,Total 0.5 mg/dl (0.2-1); Globulin 3.9 gm/dl (2.5-4.0); Total Protein 7.1 gm/dl (6.4-8.2)
[2020-12-15] MEDS: INSULIN ASPART 100 UNITS/ML 3 ML PEN SC SCH ×4 (08:08→20:43)
[2020-12-15] MEDS: ASPIRIN 81 MG ECTAB PO SCH (08:09)
[2020-12-15] MEDS: BENZONATATE 100 MG CAPSULE PO SCH ×3 (08:10→20:40)
[2020-12-15] MEDS: FUROSEMIDE 60 MG in SYRINGE 0 ML IV SCH ×2 (08:10→16:57)
[2020-12-15] MEDS: DOXYCYCLINE HYCLATE 100 MG CAP PO SCH ×2 (08:10→20:40)
[2020-12-15] MEDS: METOPROLOL SUCC 50MG EXT REL TAB PO SCH ×2 (08:11→20:40)
[2020-12-15] MEDS: hydroCHLOROthiazide 25 MG TAB PO SCH (08:11)
[2020-12-15] MEDS: SPIRONOLACTONE 25 MG TAB PO SCH (08:11)
[2020-12-15] MEDS: POTASSIUM CHLORIDE CRTAB 20 MEQ TABCR PO SCH (08:13)
--- NOTE | 2020-12-15 13:11 | Cardiology Progress Note ---
Date of Service December 15, 2020 Assessment & Plan (1) Acute systolic (congestive) heart failure: (2) Pleural effusion: (3) Cardiomyopathy: (4) Mitral regurgitation: (5) History of CVA (cerebrovascular accident): (6) Hypertension: (7) Diabetes: (8) Pericardial effusion: Plan: Pt presents with acute decompensated LV systolic heart failure unclear etiology with LV EF of 25-30% echo from 2018 reportedly showed normal LV systolic function and normal wall thi ckness curious wall motion and LVH pattern on echo performed today, suspicious for hypertensive heart disease with possible inferior/septal infarct pattern Cardiac catheterization without significant obstruction. We will treat with guideline directed medical therapy for nonischemic cardiomyopathy. Metoprolol dose has been maximized and should be continued. Tolerating addition of spironolactone and HCTZ. Losartan held on 12/14/2020 and will start Entresto this evening. Does not examine his volume overloaded and will discontinue IV Lasix at this time. DC Nitropaste. Given patient's clinical progress this point I am hopeful that we may be able to discharge to home in the a.m. pathophysiology and treatment options for possible etiologies discussed at great length with the patient and his , by phone Patient's is concerned about cost of medications and I recommend that she contact [facility] to establish care and I will notify our [place] clinic upon discharge as well. Admission and Anticipated Discharge Date Admission Date: December 11, 2020 Subjective Patient seen and examined, chart reviewed. States he is feeling very well today. Notes that his breathing is back to baseline and he denies any chest pain, shortness of breath, palpitations, lightheadedness, dizziness or syncope. Telemetry reviewed: Normal sinus rhythm rates now improved to the 80s and 90s. Review of Systems Review of Systems: All systems reviewed & are unremarkable except as noted in HPI & below Physical Exam Physical Exam: General: Awake, alert and oriented x 3. No acute distress. HEENT: Normocephalic, atraumatic. Pupils equal, round and reactive to light and accommodation. Extraocular muscles are intact. Anicteric sclera. Moist mucous membranes. Neck: No JVD. No bruit. Cardiovascular: Regular. Positive S-4. Normal S-1 and S-2. No S-3. 3/6 holosystolic ejection murmur, left sternal border, mid-clavicular line with radiation to the axilla. No rubs. Pulmonary: Clear to auscultation bilaterally. No rales rhonchi or wheezing. Abdomen: Bowel sounds x 4, soft. No rebound, guarding or tenderness. No organomegaly. Extremities: No clubbing, cyanosis or edema. +2 pedal pulses bilaterally. Skin: Warm and dry. Results & Data ([facility]) Vital Signs (Past 12 Hours) Vital Signs Temp Pulse Pulse Resp BP BP Pulse Ox 12/15/20 11:40 36.6 C 90 18 139/91 99 12/15/20 06:55 36.5 C 91 H 17 132/90 96 12/15/20 04:02 95 H 22 97 12/15/20 03:28 36.7 C 14 152/98 H 96
[2020-12-15 13:52] LABS: iSTAT Arterial Blood Gas HCO3 28 meg/L (19-24); iSTAT Arterial Blood Gas pCO2 41 mmHg (35-46); iSTAT Arterial Blood Gas pH 7.43 (7.35-7.45); iSTAT Arterial Blood Gas pO2 < 32 mmHg (80-95); iSTAT Carbon Dioxide 29 mmol/L (24-31); iSTAT Hematocrit 44 % (42-52); iSTAT Potassium 3.4 mmol/L (3.3-5.0); iSTAT Sodium 141 mmol/L (135-144)
[2020-12-15] MEDS: cefTRIAXone SODIUM 2,000 MG in DEXTROSE 5% 50 ML IV SCH (17:00)
--- NOTE | 2020-12-15 17:29 | Hospitalist Progress Note ---
Date of Service December 15, 2020 Assessment & Plan (1) Acute systolic (congestive) heart failure: (2) Pleural effusion: (3) Pulmonary edema: (4) Pericardial effusion: Plan: Present on admission with worsening SOB and orthopnea CTA chest showed no pulmonary emboli identified. Moderate bilateral pleural effusions. Associated bilateral lower lobe opacities favor atelectasis although pneumonia could appear similar. Small pericardial effusion. Interlobular septal thickening consistent with interstitial pulmonary edema. Bilateral upper lobe ground glass opacities could reflect a superimposed infectious process or alveolar edema. Echo showed regional wall motion abnormality, pericardial effusion and mitral regurgitation are not present. Thinning and akinesis of the anteroseptal and inferoseptal schneider. Severe LVH of remaining wall segment with moderate global hypokinesis. Mild to moderate global hypokinesis. large pericardial effusion with no echocardiographic indication of cardiac tamponade. Status post cardiac cath showing no significant vessel disease IV Lasix and Losartan on hold Cardiology on board Continue HCTZ and spironolactone Plan to initiate Entresto tonight Continue monitor I/O- Output about 5L so far Continue monitor BMP closely Possible pneumonia CTA showed Bilateral upper lobe ground glass opacities could reflect a superimposed infectious process or alveolar edema. Starting onIV Zosyn and p.o. doxycycline. Zosyn changed to Ceftriaxone and continue doxycycline WBC and lactate within normal Blood cx no growth and procalcitonin normal Repeat CXR showed bibasilar airspace opacities, left greater than right, likely representing layering pleural effusion with without superimposed atelectasis, pneumonia, and/or aspiration. Will consider to D/C abx Uncontrolled DM type 2 Most recent Hba1c 10 Pt said that he has not been taking his insulin due to cost Will continue to hold metformin On insulin sliding scale Continue monitor BS Obstructive sleep apnea Continue CPAP at bedtime. Elevated troponin Most likely secondary to demand ischemia due to acuet CHF exacerbation and BALJEET Troponin on admission 0.049 -> 0.050, then trending down to 0.035 Echo showed regional wall motion abnormality. Thinning and akinesis of the anteroseptal and inferoseptal schneider. Severe LVH of remaining wall segment with moderate global hypokinesis. Mild to moderate global hypokinesis. Continue aspirin and metoprolol Acute kidney injury Creatinine on admission 1.4, baseline creatinine around 1 in 2018 labs Creatinine stable a 1.4 Monitor BMP while on Lasix and spironolactone Mild Elevated Liver enzymes AST 81 and ALT 135 on admission Liver enzymes trending down with AST 42->30 and ALT 112->70 Continue monitor Liver enzymes Hypertensive urgency BP on admission 207/148 Receive IV labetalol and nitroglycerin paste Continue his home losartan. Continue BP monitor History of cerebrovascular accident: Continue aspirin DVT px on Lovenox. Code status Full code Admission and Anticipated Discharge Date Admission Date: December 11, 2020 Subjective Patient was seen and examined for follow-up of shortness of breath Lying in bed with no acute distress Patient said his breathing continue to feel better He had a cardiac cath done on 12/14 that was negative for any significant vessel disease Denies any chest pain, palpitation, dizziness, shortness of breath. Review of Systems Review of Systems: All systems reviewed & are unremarkable except as noted in Subjective Physical Exam Physical Exam: General- No acute distress Head- atraumatic Eyes- PERRL, EOMI, ENT- oropharynx clear Neck- supple, no JVD Lungs- clear to auscultation Heart- regular rhythm; no murmur Abdomen- normal bowel sounds, soft, nontender Extremities- no calf tenderness Neuro- alert, oriented x 3; PERRL, EOMI; no facial palsy; no dysarthria Skin- warm & dry Results & Data Results & Data ([facility]) Vital Signs (Past 12 Hours) Vital Signs Temp Pulse Resp BP BP Pulse Ox 12/15/20 15:53 36.6 C 92 H 19 141/99 H 96 12/15/20 11:40 36.6 C 90 18 139/91 99 12/15/20 06:55 36.5 C 91 H 17 132/90 96 (1) Pulmonary edema Chronicity: acute Qualified Code(s): J81.0 - Acute pulmonary edema
[2020-12-15] MEDS: SACUBITRIL-VALSARTAN 49/51 MG TAB PO SCH (20:40)
[2020-12-16] MEDS: ENOXAPARIN INJ 40 MG/0.4 ML SYR SQ SCH (05:18)
[2020-12-16 06:46] LABS: BUN Creatinine Ratio 16.1 (10-20); Calcium 8.9 mg/dl (8.5-10.1); Creatinine Clr Calc Pharmacy 82.2 ml/min; Est GFR (African American) 73.4 ml/min; Est GFR (Non-African American) 63.3 ml/min; Potassium 3.4 mmol/L (3.5-5.1)
[2020-12-16] MEDS ORDERED: POTASSIUM CHLORIDE CRTAB 20 MEQ TABCR PO STA (08:13)
[2020-12-16] MEDS: INSULIN ASPART 100 UNITS/ML 3 ML PEN SC SCH (08:28)
--- NOTE | 2020-12-16 08:45 | Cardiology Progress Note ---
Date of Service December 16, 2020 Assessment & Plan (1) Acute systolic (congestive) heart failure: (2) Pleural effusion: (3) Cardiomyopathy: (4) Mitral regurgitation: (5) History of CVA (cerebrovascular accident): (6) Hypertension: (7) Diabetes: (8) Pericardial effusion: Plan: Pt presents with acute decompensated LV systolic heart failure unclear etiology with LV EF of 25-30% echo from 2018 reportedly showed normal LV systolic function and normal wall thi ckness curious wall motion and LVH pattern on echo performed today, suspicious for hypertensive heart disease with possible inferior/septal infarct pattern Cardiac catheterization without significant obstruction. We will treat with guideline directed medical therapy for nonischemic cardiomyopathy. Metoprolol dose has been maximized and should be continued. Tolerating addition of spironolactone and HCTZ. Losartan switch to Entresto, will ask our [facility] pharmacy colleagues to help with patient affordability Does not examine his volume overloaded and will discontinue IV Lasix at this time. Recommend Lasix 40 mg p.o. on a as needed basis as an outpatient. Okay to DC to home from a cardiac standpoint. My office will arrange for follow-up in the CHF clinic this week. pathophysiology and treatment options for possible etiologies discussed at great length with the patient and his , by phone Patient's is concerned about cost of medications and I recommend that she contact [facility] to establish care and I will notify our [facility] clinic upon discharge as well. Admission and Anticipated Discharge Date Admission Date: December 11, 2020 Subjective Patient seen and examined, chart reviewed. States he feels great today. Denies any cardiac complaints of chest pain, shortness of breath, palpitations, lightheadedness, dizziness or syncope. Anxious for discharge. Telemetry reviewed: Normal sinus rhythm in the 80s to 90s without arrhythmia. Review of Systems Review of Systems: All systems reviewed & are unremarkable except as noted in HPI & below Physical Exam Physical Exam: General: Awake, alert and oriented x 3. No acute distress. HEENT: Normocephalic, atraumatic. Pupils equal, round and reactive to light and accommodation. Extraocular muscles are intact. Anicteric sclera. Moist mucous membranes. Neck: No JVD. No bruit. Cardiovascular: Regular. Positive S-4. Normal S-1 and S-2. No S-3. 3/6 holosystolic ejection murmur, left sternal border, mid-clavicular line with radiation to the axilla. No rubs. Pulmonary: Clear to auscultation bilaterally. No rales rhonchi or wheezing. Abdomen: Bowel sounds x 4, soft. No rebound, guarding or tenderness. No organomegaly. Extremities: No clubbing, cyanosis or edema. +2 pedal pulses bilaterally. Skin: Warm and dry. Results & Data ([facility]) Vital Signs (Past 12 Hours) Vital Signs Temp Pulse Pulse Pulse Resp BP BP 12/16/20 07:59 36.5 C 93 H 18 132/86 12/16/20 05:17 91 H 20 139/84 12/16/20 03:49 91 H 22 12/15/20 23:28 88 12/15/20 22:57 90 22 12/15/20 22:33 36.8 C 90 20 135/92 Pulse Ox 12/16/20 07:59 97 12/16/20 05:17 98 12/16/20 03:49 97 12/15/20 23:28 12/15/20 22:57 98 12/15/20 22:33 99
[2020-12-16] MEDS: ASPIRIN 81 MG ECTAB PO SCH (09:09)
[2020-12-16] MEDS: METOPROLOL SUCC 50MG EXT REL TAB PO SCH (09:10)
[2020-12-16] MEDS: hydroCHLOROthiazide 25 MG TAB PO SCH (09:10)
[2020-12-16] MEDS: DOXYCYCLINE HYCLATE 100 MG CAP PO SCH (09:10)
[2020-12-16] MEDS: BENZONATATE 100 MG CAPSULE PO SCH (09:10)
[2020-12-16] MEDS: SACUBITRIL-VALSARTAN 49/51 MG TAB PO SCH (09:11)
[2020-12-16] MEDS: SPIRONOLACTONE 25 MG TAB PO SCH (09:11)
[2020-12-16] MEDS: POTASSIUM CHLORIDE CRTAB 20 MEQ TABCR PO SCH (09:12)
--- NOTE | 2020-12-16 10:38 | Hospitalist Progress Note ---
Date of Service December 16, 2020 Assessment & Plan (1) Acute systolic (congestive) heart failure: (2) Pleural effusion: (3) Pulmonary edema: (4) Pericardial effusion: Plan: Present on admission with worsening SOB and orthopnea CTA chest showed no pulmonary emboli identified. Moderate bilateral pleural effusions. Associated bilateral lower lobe opacities favor atelectasis although pneumonia could appear similar. Small pericardial effusion. Interlobular septal thickening consistent with interstitial pulmonary edema. Bilateral upper lobe ground glass opacities could reflect a superimposed infectious process or alveolar edema. Echo showed regional wall motion abnormality, pericardial effusion and mitral regurgitation are not present. Thinning and akinesis of the anteroseptal and inferoseptal schneider. Severe LVH of remaining wall segment with moderate global hypokinesis. Mild to moderate global hypokinesis. large pericardial effusion with no echocardiographic indication of cardiac tamponade. Status post cardiac cath showing no significant vessel disease IV Lasix and Losartan on hold Cardiology on board Continue HCTZ, spironolactone and Entresto Case discussed with cardiology OK from cardiology standpoint to discharge home Will check BMP in 1 week to monitor your electrolytes and renal function Possible pneumonia CTA showed Bilateral upper lobe ground glass opacities could reflect a superimposed infectious process or alveolar edema. Starting onIV Zosyn and p.o. doxycycline. Zosyn changed to Ceftriaxone and continue doxycycline WBC and lactate within normal Blood cx no growth and procalcitonin normal Repeat CXR showed bibasilar airspace opacities, left greater than right, likely representing layering pleural effusion with without superimposed atelectasis, pneumonia, and/or aspiration. Received about 5 days course of abx, will discontinue abx on discharge Uncontrolled DM type 2 Most recent Hba1c 10 Pt said that he has not been taking his insulin due to cost On Novolog sliding scale Case discussed with pharmacy that recommended to start on metformin Continue monitor BS and if not at goal we can titrate his medication Will start with metformin 500mg BID x5 days if tolerates, then increase to 1g BID Obstructive sleep apnea Continue CPAP at bedtime. Elevated troponin Most likely secondary to demand ischemia due to acuet CHF exacerbation and BALJEET Troponin on admission 0.049 -> 0.050, then trending down to 0.035 Echo showed regional wall motion abnormality. Thinning and akinesis of the anteroseptal and inferoseptal schneider. Severe LVH of remaining wall segment with moderate global hypokinesis. Mild to moderate global hypokinesis. Continue aspirin and metoprolol Acute kidney injury Creatinine on admission 1.4, baseline creatinine around 1 in 2018 labs Creatinine stable a 1.2 Monitor BMP while on HCTZ, Entresto and spironolactone Mild Elevated Liver enzymes AST 81 and ALT 135 on admission Liver enzymes trending down with AST 42->30 and ALT 112->70 Continue monitor Liver enzymes Hypertensive urgency BP on admission 207/148 Receive IV labetalol and nitroglycerin paste Nitropaste discontinued Losartan was discontinued since started on Entresto Continue HCTZ and spironolatone Continue BP monitor History of cerebrovascular accident: Continue aspirin DVT px on Lovenox. Code status Full code Disposition Discharge home today Admission and Anticipated Discharge Date Admission Date: December 11, 2020 Subjective Patient was seen and examined for follow-up of shortness of breath Sitting in at the edge of the bed getting ready to go home today Pt said that he feels much better Denies any chest pain, palpitation, dizziness, shortness of breath. Review of Systems Review of Systems: All systems reviewed & are unremarkable except as noted in Subjective Physical Exam Physical Exam: General- No acute distress Head- atraumatic Eyes- PERRL, EOMI, ENT- oropharynx clear Neck- supple, no JVD Lungs- clear to auscultation Heart- regular rhythm; no murmur Abdomen- normal bowel sounds, soft, nontender Extremities- no calf tenderness Neuro- alert, oriented x 3; PERRL, EOMI; no facial palsy; no dysarthria Skin- warm & dry Results & Data Results & Data ([facility]) Vital Signs (Past 12 Hours) Vital Signs Temp Pulse Pulse Pulse Resp BP BP 12/16/20 07:59 36.5 C 93 H 18 132/86 12/16/20 05:17 91 H 20 139/84 12/16/20 03:49 91 H 22 12/15/20 23:28 88 12/15/20 22:57 90 22 12/15/20 22:33 36.8 C 90 20 135/92 Pulse Ox 12/16/20 07:59 97 12/16/20 05:17 98 12/16/20 03:49 97 12/15/20 23:28 12/15/20 22:57 98 12/15/20 22:33 99 (1) Pulmonary edema Chronicity: acute Qualified Code(s): J81.0 - Acute pulmonary edema
--- NOTE | 2020-12-16 11:06 | Discharge Summary ---
Date of Service December 16, 2020 Admission HPI Per Admitting Provider CHIEF COMPLAINT: Shortness of breath and cough. HISTORY OF PRESENT ILLNESS: This is a 50-year-old male with past medical history significant for type 2 diabetes, obstructive sleep apnea, history of hypertension, history of CVA, obesity, who presents with shortness of breath and cough. The patient says in the last 10 days he is having a lot of cough. Once in a while, he brings whitish phlegm and he was feeling short of breath, which prompted him to go to the PCP's office and he was sent here. The patient is currently on 2 L, saturating okay, seems comfortable. When he came in, blood pressure was high, in systolic 200/140s, placed on nitroglycerin paste. The patient is on metformin and losartan at home. Looks like he did not take his Losartan today morning and he says he takes his baby aspirin, but is not taking his cholesterol medication and he says he used to take insulin before, but he is not taking it anymore now, and uses CPAP in the nighttime. He states he could not lie flat for more than 30 minutes. Did not notice any swelling in the legs. Since today afternoon, he has noticed like 1/10 chest pain at one point in the left side of chest. No radiation. Denies any fevers. Denies any headache, no neck pain, no blurred visions, no earache, no runny nose, no sore throat. Appetite is okay. No nausea, no abdominal pain. Normal bowel and bladder movements. He says he had COVID vaccine, Pfizer, and the last dose was in October. His SARS-CoV-2 PCR is negative in the ER. Admission Exam Per Admitting Provider GENERAL: The patient is of moderate build, not in acute distress. VITAL SIGNS: Temperature 36.8, pulse 120s, respiratory rate 24, blood pressure 178/125, oxygen 92% on 2 liters. HEENT: Pupils equal, round, and reactive to light. Oral mucosa moist. NECK: No JVD, no neck masses. CARDIOVASCULAR: S1 and S2 present. Tachycardia, gallop present. RESPIRATORY SYSTEM: Normal AP diameter. No accessory muscle use. Mild bibasilar crackles. No wheezing. ABDOMEN: Soft, bowel sounds present, nontender, no distention. CENTRAL NERVOUS SYSTEM: Cranial nerves II through XII grossly intact, nonfocal. EXTREMITIES: Bilateral lower extremity, +1 to +2 edema present. Principal Diagnosis Acute systolic (congestive) heart failure: Pleural effusion: Pulmonary edema: Pericardial effusion: Uncontrolled DM type 2 Obstructive sleep apnea Elevated troponin Acute kidney injury Elevated Liver enzymes Hypertensive urgency History of cerebrovascular accident: Discharge Exam General- No acute distress Head- atraumatic Eyes- PERRL, EOMI, ENT- oropharynx clear Neck- supple, no JVD Lungs- clear to auscultation Heart- regular rhythm; no murmur Abdomen- normal bowel sounds, soft, nontender Extremities- no calf tenderness Neuro- alert, oriented x 3; PERRL, EOMI; no facial palsy; no dysarthria Skin- warm & dry Discharge Data Allergies Allergy/AdvReac Type Severity Reaction Status Date / Time bee venom protein (honey bee) Allergy Unknown anaplyaxsis Verified 12/11/20 21:20 . Consultations 12/12/20 08:00 Consult Cardiology Routine Procedures Performed Operation Date: 12/14/20 08:00 Actual Procedures p Cath, Right and Left Heart - Vishal Fernando MD s Cineradiography w/Routine Exam - Vishal Fernando MD Ordered Studies 12/11/20 18:46 CT angio chest PE protocol Stat 12/14/20 06:38 CL Cath Imgs for PACS use only Stat Diabetes Follow up Diabetes Follow-up Needed for HgbA1c >9% Hospital Course (1) Acute systolic (congestive) heart failure: (2) Pleural effusion: (3) Pulmonary edema: (4) Pericardial effusion: Present on admission with worsening SOB and orthopnea CTA chest showed no pulmonary emboli identified. Moderate bilateral pleural effusions. Associated bilateral lower lobe opacities favor atelectasis although pneumonia could appear similar. Small pericardial effusion. Interlobular septal thickening consistent with interstitial pulmonary edema. Bilateral upper lobe ground glass opacities could reflect a superimposed infectious process or alveolar edema. Echo showed regional wall motion abnormality, pericardial effusion and mitral regurgitation are not present. Thinning and akinesis of the anteroseptal and inferoseptal schneider. Severe LVH of remaining wall segment with moderate global hypokinesis. Mild to moderate global hypokinesis. large pericardial effusion with no echocardiographic indication of cardiac tamponade. Status post cardiac cath showing no significant vessel disease IV Lasix and Losartan on hold Cardiology on board Continue HCTZ, spironolactone and Entresto Case discussed with cardiology [place] from cardiology standpoint to discharge home Will check BMP in 1 week to monitor your electrolytes and renal function Possible pneumonia CTA showed Bilateral upper lobe ground glass opacities could reflect a superimposed infectious process or alveolar edema. Starting onIV Zosyn and p.o. doxycycline. Zosyn changed to Ceftriaxone and continue doxycycline WBC and lactate within normal Blood cx no growth and procalcitonin normal Repeat CXR showed bibasilar airspace opacities, left greater than right, likely representing layering pleural effusion with without superimposed atelectasis, pneumonia, and/or aspiration. Received about 5 days course of abx, will discontinue abx on discharge Uncontrolled DM type 2 Most recent Hba1c 10 Pt said that he has not been taking his insulin due to cost On Novolog sliding scale Case discussed with pharmacy that recommended to start on metformin Continue monitor BS and if not at goal we can titrate his medication Will start with metformin 500mg BID x5 days if tolerates, then increase to 1g BID Obstructive sleep apnea Continue CPAP at bedtime. Elevated troponin Most likely secondary to demand ischemia due to acuet CHF exacerbation and BALJEET Troponin on admission 0.049 -> 0.050, then trending down to 0.035 Echo showed regional wall motion abnormality. Thinning and akinesis of the anteroseptal and inferoseptal schneider. Severe LVH of remaining wall segment with moderate global hypokinesis. Mild to moderate global hypokinesis. Continue aspirin and metoprolol Acute kidney injury Creatinine on admission 1.4, baseline creatinine around 1 in 2018 labs Creatinine stable a 1.2 Monitor BMP while on HCTZ, Entresto and spironolactone Mild Elevated Liver enzymes AST 81 and ALT 135 on admission Liver enzymes trending down with AST 42->30 and ALT 112->70 Continue monitor Liver enzymes Hypertensive urgency BP on admission 207/148 Receive IV labetalol and nitroglycerin paste Nitropaste discontinued Losartan was discontinued since started on Entresto Continue HCTZ and spironolatone Continue BP monitor History of cerebrovascular accident: Continue aspirin DVT px on Lovenox. Code status Full code Disposition Discharge home today Total Time Total Time Spent Total Time Spent (In Minutes): 35 minutes Discharge Plan Discharge Items Patient Disposition: Home - Self-Care Reason For Visit: SHORTNESS OF BREATH Discharge Diagnosis: Acute systolic (congestive) heart failure: Pleural effusion: Pulmonary edema: Pericardial effusion: Uncontrolled DM type 2 Obstructive sleep apnea Elevated troponin Acute kidney injury Elevated Liver enzymes Hypertensive urgency History of cerebrovascular accident: Activity: Resume your previous activity Non-emergency contact: Primary Care Provider and Sash Clamp Operator Call non-emergency contact if: you have any medication questions Follow-up/Referrals: Simone Corcoran MD [Outside Practitioners] - (Date & Time 12/21/2020 10:40 AM Provider Simone Corcoran MD Department [facility] ) Diet: Carb Consistent or DM2 Addtl Attending Provider Instructions: Follow up with your primary care provider Dr. Corcoran on 12/21/2020 at 10:40 AM at the [facility] Follow up with cardiology clinic in 3-4 weeks ( please call to schedule for the appointment ) Check BMP within 1 week to monitor your renal and electrolytes function Continue monitor your blood sugar and bring your blood sugar log at your next follow up appointment with your provider Continue 1.8 liter fluid restriction daily Keep the area for the cardiac cath clean and dry to avoid any infection Do not use creams, lotions or ointment on the wound site Do not take a bath, tub soak, go in a Jacuzzi, or swim in a pool or briones for one week after the procedure. Do not participate in strenuous activities for 3 days after the procedure. Gradually increase your activities until you reach your normal activity level within two days after the procedure. Avoid heavy lifting (more than 10 pounds) and pushing or pulling heavy objects for the first 5 days after the procedure. Pending Studies at Discharge: No Stand-Alone Forms: My [facility] [employer], Smoking Cessation Medications and DC Order Prescriptions: New metoprolol succinate 100 mg tablet extended release 24 hr 100 mg PO BID Qty: 60 RF: 0 Entresto 49-51 mg Tablet 1 tab PO BID Qty: 60 RF: 0 spironolactone 25 mg Tablet 25 mg PO QAM Qty: 30 RF: 0 aspirin 81 mg Tablet,Delayed Release (Dr/Ec) 81 mg PO QAM Qty: 30 RF: 0 hydrochlorothiazide 25 mg Tablet 25 mg PO QAM Qty: 30 RF: 0 metformin 500 mg tablet extended release 24 hr 500 mg PO BID Qty: 120 RF: 0 potassium chloride 10 mEq tablet extended release 10 meq PO DAILY Qty: 30 RF: 0 (DME) [employer] Verio test strips Strip See Rx Instructions .Route Qty: 100 RF: 0 (DME) lancets [OneTouch Delica Lancets] 33 gauge misc See Rx Instructions .Route Qty: 100 RF: 0 Discontinued losartan 50 mg tablet 50 mg PO DAILY RF: 0 metformin 1,000 mg tablet 1,000 mg PO BID RF: 0 Discharge Orders: Discharge Order (Routine); Ordered 12/16/20 Ordered By: Merrick Powers Admission Data Admit Date/Time: 12/11/20 23:18 Attending Provider: Merrick Powers Admit Provider: Abdelrahman Dunn Primary Care Provider: Jeet Chu Other Providers: Torsten Costello ; Simon Falcon ; Vishal Fernando ; Shane Blandon ; Moshe Cotton ; Cortes Mclain ; Bushra Verduzco ; Kajal Nevarez ; Yoli Hinton ; Pedro Luis Dasilva Other Interventions: Discharge Summary Assessment (RN) Last Done: 12/16/20 11:13
== END 2020-12-16 12:02 | disposition home or self-care (01) | DRG 286 ==
LOC: ED 17:29 → 2S 22:51

== ENCOUNTER 2021-04-25 03:56 | Inpatient (IN) ==
--- NOTE | 2021-04-25 04:27 | Emergency Department Note ---
History of Present Illness General Chief complaint: Leg Injury/Pain Stated complaint: CAN'T WALK Time Seen by Provider: 04/25/21 04:05 History of Present Illness Maximum Pain Intensity: 3 This 51-year-old with a history of heart failure presents to the ER complaining of worsening leg pain and swelling for the past few weeks Location: Legs Quality: Painful Severity: Moderate Duration: Past few weeks Timing: Started a few weeks ago Context: Patient was concerned and came in Modifying factors: better with rest; worse with activity Patient states his legs are more painful and swollen. He has a hard time walking. Patient denies chest pain, dyspnea, fevers, flulike illness. Home Medications Medication Instructions Recorded Confirmed Type aspirin 81 mg tablet,delayed 81 mg PO QAM #30 tab 12/16/20 Rx release blood sugar [facility] Rx Verio test strips) hydrochlorothiazide 25 mg tablet 25 mg PO QAM #30 tab 12/16/20 Rx lancets 33 gauge (OneTouch Delica #100 ea 12/16/20 Rx Lancets) metformin 500 mg tablet,extended 500 mg PO BID #120 tab 12/16/20 Rx release 24 hr metoprolol succinate 100 mg 100 mg PO BID #60 tab 12/16/20 Rx tablet,extended release 24 hr potassium chloride 10 mEq 10 meq PO DAILY #30 tab 12/16/20 Rx tablet,extended release sacubitril 49 mg-valsartan 51 mg 1 tab PO BID #60 tab 12/16/20 Rx tablet (Entresto) spironolactone 25 mg tablet 25 mg PO QAM #30 tab 12/16/20 Rx Allergies Allergy/AdvReac Type Severity Reaction Status Date / Time bee venom protein (honey bee) Allergy Unknown anaplyaxsis Verified 12/11/20 21:20 . Past Med/Surg History Medical History (Updated 04/25/21 @ 06:08 by Ana Robbins PA-C) Abnormal LFTs Acute hyperglycemia Bilateral pneumonia Diabetes Elevated serum creatinine Hypertension Pericardial effusion Pulmonary edema Surgical History (Updated 04/25/21 @ 04:24 by Ana Robbins PA-C) No pertinent past surgical history Social History Smoking Status: Former smoker Hx Alcohol Use: No Hx Substance Use: No Preferred Language: Romanian Communication Ability: Effective Carbider Required: No Beliefs That Will Affect Care: None Current Living Situation: Significant Other Feels Safe at Home: Yes Assistive Devices: None Review of Systems A total of 10 systems reviewed and were otherwise negative Physical Exam Vital Signs Vital Signs - 24 hr 04/25/21 03:59 Temperature 36.8 C Temperature Source Temporal Artery Scan Pulse Rate 110 H Pulse Rhythm Regular Pulse Strength Normal Respiratory Rate 20 Respiratory Effort / Characteristics Non-Labored Spontaneous Respiratory Depth Normal Respiratory Pattern Regular Blood Pressure 177/112 H Blood Pressure Mean 133 Blood Pressure Position Sitting Pulse Oximetry 99 Oxygen Delivery Method Room Air Sepsis Recent Fever Within 48 Hours No Sepsis New/Unexplained Change in Mental Status N/A Sepsis Action Taken by Nursing No Action Required VITALS: Vitals are noted on the nurse's note and reviewed by myself. Vital signs hypertensive. GENERAL: Pleasant male, in no acute distress, nondiaphoretic, well-developed wel l-nourished. SKIN: The skin was without rashes, or bruising. There is no tenting of the skin. Capillary reflex less than 2 seconds. HEAD: Normocephalic atraumatic. EARS: External auditory canals clear, EYES: Pupils equal round and reactive to light and accommodation. Conjunctivae without injection, sclerae without icterus. Extraocular movements intact. NOSE: Patent, turbinates without inflammation or discharge. MOUTH: Mucous membranes moist. Pharynx without erythema or exudate. Uvula midline. Airway patent. Tongue does not deviate. NECK: Supple without nuchal rigidity. No lymphadenopathy. No thyromegaly. Cervical spine is nontender. No JVD. HEART: Regular rate and rhythm LUNGS: Clear to auscultation bilaterally without wheezes, rales or rhonchi. No retractions or accessory muscle use. ABDOMEN: Positive bowel sounds x 4. Normal tympanic percussion. Soft, nonte nder, without masses or organomegaly. Ford sign negative. No guarding or rebound tenderness. No CVA tenderness MUSCULOSKELETAL: No muscle atrophy, erythema, noted. +2 pitting edema up to the mid tib-fib bilaterally NEURO: Patient was alert and oriented to person place and time. Normal sensat ion to light and sharp touch. No focal neurological deficits. Medical Decision Making Medical Records Attestation: I reviewed the patient's medical records. Home Medications Current Medication List: was personally reviewed by me Laboratory Data Attestation: I reviewed the patient's lab results. Result diagrams: 04/25/21 04:19 04/25/21 04:19 Lab Results 04/25/21 04/25/21 04/25/21 Range/Units 04:19 04:19 04:19 WBC 7.23 (4.8-10.8) K/uL RBC 4.87 (4.7-6.1) M/uL Hgb 13.2 L (14.0-18.0) g/dL Hct 39.5 L (42-52) % MCV 81.1 (80-100) fL MCH 27.1 (25-34) pg MCHC 33.4 (32-36) g/dL RDW Std Deviation 41.2 (36.4-46.3) fL RDW Coeff of Trina 13.8 (11.5-14.5) % Plt Count 214 (130-400) K/uL MPV 10.4 (7.4-10.4) fL Immature Gran % (Auto) 0.3 % Neut % (Auto) 62.1 % Lymph % (Auto) 23.7 % [place] % (Auto) 7.5 % Eos % (Auto) 5.8 % Baso % (Auto) 0.6 % Neut # (Auto) 4.50 (1.4-6.5) K/uL Lymph # (Auto) 1.71 (1.2-3.4) K/uL [place] # (Auto) 0.54 (0.11-0.59) K/uL Eos # (Auto) 0.42 (0-0.5) K/uL Baso # (Auto) 0.04 (0-0.2) K/uL Immature Gran # (Auto) 0.02 (0.00-0.02) K/uL Sodium 136 (136-145) mmol/L Potassium 3.7 (3.5-5.1) mmol/L Chloride 110 H (98-107) mmol/L Carbon Dioxide 17 L (21-32) mmol/L Anion Gap 9 (3-11) BUN 13 (6-23) mg/dl Creatinine 1.13 (0.6-1.4) mg/dl Est Cr Clr Drug Dosing Not Reportable Est GFR ( Amer) 85.5 ml/min Est GFR (Non-Af Amer) 73.8 ml/min BUN/Creatinine Ratio 11.5 (10-20) Glucose 138 H (70-99(Fasting)) mg/dl Calcium 8.7 (8.5-10.1) mg/dl Total Bilirubin 0.6 (0.2-1.0) mg/dl AST 26 (13-39) U/L ALT 27 (7-52) U/L Alkaline Phosphatase 75 (34-104) U/L Troponin I < 0.03 (0-0.04) ng/ml B-Natriuretic Peptide 1903 H (0-100) pg/ml Total Protein 5.9 L (6.0-8.3) gm/dl Albumin 3.4 (3.4-5.0) gm/dl Globulin 2.5 (2.5-4.0) gm/dl Albumin/Globulin Ratio 1.4 (0.9-2) SARS-CoV-2, RNA, NAAT (NEGATIVE) 04/25/21 Range/Units 04:19 WBC (4.8-10.8) K/uL RBC (4.7-6.1) M/uL Hgb (14.0-18.0) g/dL Hct (42-52) % MCV (80-100) fL MCH (25-34) pg MCHC (32-36) g/dL RDW Std Deviation (36.4-46.3) fL RDW Coeff of Trina (11.5-14.5) % Plt Count (130-400) K/uL MPV (7.4-10.4) fL Immature Gran % (Auto) % Neut % (Auto) % Lymph % (Auto) % [place] % (Auto) % Eos % (Auto) % Baso % (Auto) % Neut # (Auto) (1.4-6.5) K/uL Lymph # (Auto) (1.2-3.4) K/uL [place] # (Auto) (0.11-0.59) K/uL Eos # (Auto) (0-0.5) K/uL Baso # (Auto) (0-0.2) K/uL Immature Gran # (Auto) (0.00-0.02) K/uL Sodium (136-145) mmol/L Potassium (3.5-5.1) mmol/L Chloride (98-107) mmol/L Carbon Dioxide (21-32) mmol/L Anion Gap (3-11) BUN (6-23) mg/dl Creatinine (0.6-1.4) mg/dl Est Cr Clr Drug Dosing Est GFR ( Amer) ml/min Est GFR (Non-Af Amer) ml/min BUN/Creatinine Ratio (10-20) Glucose (70-99(Fasting)) mg/dl Calcium (8.5-10.1) mg/dl Total Bilirubin (0.2-1.0) mg/dl AST (13-39) U/L ALT (7-52) U/L Alkaline Phosphatase (34-104) U/L Troponin I (0-0.04) ng/ml B-Natriuretic Peptide (0-100) pg/ml Total Protein (6.0-8.3) gm/dl Albumin (3.4-5.0) gm/dl Globulin (2.5-4.0) gm/dl Albumin/Globulin Ratio (0.9-2) SARS-CoV-2, RNA, NAAT NEGATIVE (NEGATIVE) Imaging Data Attestation: I personally reviewed and interpreted this imaging study as follows: MDM Narrative Prior records reviewed and summarized above. Triage Nursing notes reviewed. Additional history obtained from nursing The patient's history was concerning for swelling and pain in the leg. Differential diagnosis: Etiologies such as DVT, musculoskeletal, infection, joint effusion, trauma, lymphedema, idiopathic, CHF, as well as others were entertained.. Physical examination: The physical examination revealed no signs of infection. Neurovascularly intact. ER treatment provided: An order was placed for continuous cardiac monitoring. The monitor shows a rate of 60 to 1-30 with a sinus rhythm. On reassessment the patient felt better. Diagnostics interpreted by me: EKG ordered for weakness EKG: Normal sinus, normal intervals, T wave inversions in V1 to V3, EKG compared to prior EKG with no acute changes noted. Impression normal sinus rhythm with persistent T wave inversions in anteroseptal leads interpreted by myself I think arrhythmia is unlikely. EKG shows normal sinus rhythm with no interval abnormalities such as QT prolongation or WPW. There are no findings to suggest Brugada syndrome. Cardiac monitoring in the emergency department reveals no tachycardic or bradycardic dysrhythmia. Hypertrophic cardiomyopathy was considered but there are no clear historical elements pointing toward this. EKG is not suggestive. The QRS voltage is not extremely large and there are no suggestive Q waves. The labs revealed Mild hyperglycemia without DKA, elevated BNP Negative COVID, no worrisome leukocytosis Imaging studies: Chest x-ray with no acute consolidation, pneumothorax or free air per my interpretation US VENOUS BILATERAL LOWER EXTREMITIES: Diffuse subcutaneous edema. No evidence of thrombus within the visualized bilateral lower extremities. Radiologist: Lewis Aparicio MD Consultation: A consultation was placed with the hospitalist. The case was discussed and diagnostics were reviewed. The patient was evaluated in the ER for further treatment. This appears to be consistent with worsening leg pain or swelling who is having difficulty walking. Patient felt unsteady with his pain. Medicine was consulted. They will evaluate for admission. By the evaluation outlined above emergent etiologies such as DVT, septic joint, trauma, infection, as well as others were deemed relatively unlikely. The pt informed about the findings as listed above. All questions were answered and pleased with the treatment. The chart was completed utilizing [employer] Speech voice recognition software. Grammatical errors, random word insertions, pronoun errors, and incomplete sentences are an occassional consequence of this system due to software limitations, ambient noise, and hardware issues. Any formal questions or concer ns about the content, text, or information contained within the body of this dictation should be directly addressed to the physician assistant spa manager for clarification. Impression & Plan Leg edema, CHF (congestive heart failure) Discharge Plan Visit Data Chief Complaint: Leg Injury/Pain Stated Complaint: CAN'T WALK ED Provider: [facility] ED Midlevel Provider: Ana Robbins Discharge Problem: Leg edema, CHF (congestive heart failure) Patient Disposition: Being Evaluated by Hospitalist Condition: Good Forms Stand Alone Forms: My [facility] Medical Prescriptions Prescriptions: No Action metoprolol succinate 100 mg tablet extended release 24 hr 100 mg PO BID Qty: 60 RF: 0 Entresto 49-51 mg Tablet 1 tab PO BID Qty: 60 RF: 0 spironolactone 25 mg Tablet 25 mg PO QAM Qty: 30 RF: 0 aspirin 81 mg Tablet,Delayed Release (Dr/Ec) 81 mg PO QAM Qty: 30 RF: 0 hydrochlorothiazide 25 mg Tablet 25 mg PO QAM Qty: 30 RF: 0 metformin 500 mg tablet extended release 24 hr 500 mg PO BID Qty: 120 RF: 0 potassium chloride 10 mEq tablet extended release 10 meq PO DAILY Qty: 30 RF: 0 (DME) OneTouch Verio test strips Strip See Rx Instructions .Route Qty: 100 RF: 0 (DME) lancets [OneTouch Delica Lancets] 33 gauge misc See Rx Instructions .Route Qty: 100 RF: 0 Referrals Referrals: Jeet Chu [Primary Care Provider] -
[2021-04-25 04:30] LABS: Basophils # (auto) 0.04 K/uL (0-0.2); Basophils % (auto) 0.6 %; Eosinophils # (auto) 0.42 K/uL (0-0.5); Eosinophils % (auto) 5.8 %; Hematocrit (blood only) 39.5 % (42-52); Hemoglobin 13.2 g/dL (14.0-18.0); Immature Granulocytes # (auto) 0.02 K/uL (0.00-0.02); Immature Granulocytes % (auto) 0.3 %; Lymphocytes # (auto) 1.71 K/uL (1.2-3.4); Lymphocytes % (auto) 23.7 %; Mean Corpuscular Hemoglobin 27.1 pg (25-34); Mean Corpuscular Hgb Conc 33.4 g/dL (32-36); Mean Corpuscular Volume 81.1 fL (80-100); Mean Platelet Volume 10.4 fL (7.4-10.4); Monocytes # (auto) 0.54 K/uL (0.11-0.59); Monocytes % (auto) 7.5 %; Neutrophils % (auto) 62.1 %; Platelet Count 214 K/uL (130-400); RDW Coefficient of Variation 13.8 % (11.5-14.5); RDW Standard Deviation 41.2 fL (36.4-46.3); Red Blood Count 4.87 M/uL (4.7-6.1); White Blood Count 7.23 K/uL (4.8-10.8)
[2021-04-25 04:57] LABS: Troponin I < 0.03 ng/ml (0-0.04)
[2021-04-25 05:04] LABS: Alanine Aminotransferase 27 U/L (7-52); Albumin Globulin Ratio 1.4 (0.9-2); Albumin Level 3.4 gm/dl (3.4-5.0); Alkaline Phosphatase 75 U/L (34-104); Anion Gap 9 (3-11); Aspartate Aminotransferase 26 U/L (13-39); BUN Creatinine Ratio 11.5 (10-20); Bilirubin,Total 0.6 mg/dl (0.2-1.0); Blood Urea Nitrogen 13 mg/dl (6-23); Calcium 8.7 mg/dl (8.5-10.1); Carbon Dioxide 17 mmol/L (21-32); Chloride 110 mmol/L (98-107); Est GFR (African American) 85.5 ml/min; Est GFR (Non-African American) 73.8 ml/min; Globulin 2.5 gm/dl (2.5-4.0); Glucose 138 mg/dl (70-99(Fasting)); Potassium 3.7 mmol/L (3.5-5.1); Sodium 136 mmol/L (136-145); Total Protein 5.9 gm/dl (6.0-8.3)
--- NOTE | 2021-04-25 06:40 | XRay Report ---
XR chest 1V portable CLINICAL HISTORY: Weakness. Leg swelling. COMPARISON STUDY: Chest CT December 11, 2020 chest radiograph December 13, 2020. FINDINGS: There is no pneumothorax. Small bilateral pleural effusions are noted. The larger of the ca rdiac silhouette is unchanged. 2 cm nodular density within the right midlung likely reflects fissural fluid. There is mild pulmonary edema. IMPRESSION: 1. Mild pulmonary edema with small bilateral pleural effusions. 2. Stable enlargement of the cardiac silhouette. 3. 2 cm nodular opacity within the right midlung which likely reflects fissural fluid. Radiographic f ollow-up to ensure resolution is recommended. ACT 112: Negative or not required by law. Electronically signed by: Marlon Stein M.D. 04/25/2021 6:39 AM
--- NOTE | 2021-04-25 06:51 | Ultrasound Report ---
BILATERAL LOWER EXTREMITY VENOUS DOPPLER CLINICAL HISTORY: Lower extremity swelling. COMPARISON STUDY: No previous studies for comparison. TECHNIQUE: Sonography of the deep venous system of the bilateral lower extremities was performed. Co mpression and augmentation were evaluated. FINDINGS: This exam is compromised by suboptimal penetration. Lower extremity edema. However, no deep venous thrombus identified within either lower extremity. Prominent bilateral inguinal lymph nodes a re likely benign. IMPRESSION: Technically difficult exam given extensive bilateral lower extremity edema but no evidenc e of deep venous thrombus within the bilateral lower extremities. ACT 112: Negative or not required by law. Electronically signed by: Marlon Stein M.D. 04/25/2021 6:49 AM
--- NOTE | 2021-04-25 08:20 | History and Physical Report ---
DATE OF ADMISSION: 04/25/2021 CHIEF COMPLAINT: Lower extremity edema. HISTORY OF PRESENT ILLNESS: This 51-year-old male with past medical history significant for type 2 diabetes, sleep apnea, hypertension, history of CVA, obesity, recent diagnosis of diastolic and systolic CHF with EF of 25%-30%. The patient, at the time of discharge, was placed on spironolactone/hydrochlorothiazide and Entresto. It seems that as outpatient, hydrochlorothiazide supposedly decreased to 12.5 mg p.o. daily, the patient was also placed on Lasix as needed, but the patient says currently he is only taking metformin and metoprolol succinate, not taking any other medications, and he is coming in because of increasing lower extremity edema. Denies any shortness of breath, no chest pain, no cough, no fevers, no nausea, no vomiting, no headache, no blurred vision, no earache, no runny nose, no sore throat. He is ambulating okay. Currently, resting comfortably and hemodynamically stable. ALLERGIES: BEE VENOM. PAST MEDICAL HISTORY: As mentioned above. PAST SURGICAL HISTORY: Left heart catheterization. MEDICATIONS: Currently, the patient is on metformin 500 mg p.o. b.i.d. and metoprolol succinate 100 mg p.o. b.i.d. FAMILY HISTORY: Significant for father has hypertension, mother has hypertension, brother has thyroid disorder. SOCIAL HISTORY: . Quit smoking in 2010, smoked for 15 years. Drinks alcohol 2-3 times a day. No drug use. REVIEW OF SYSTEMS: As per HPI. Rest of the review of systems is negative. PHYSICAL EXAMINATION: GENERAL: The patient is obese, not in acute distress. VITAL SIGNS: Temperature 36.8, pulse 110, respiratory rate 20, blood pressure 177/112, oxygen 99% on room air. HEENT: Pupils equal, round and reactive to light. Oral mucosa moist. NECK: No JVD, no neck masses. CARDIOVASCULAR: S1 and S2 heard. Tachycardia. No murmurs. RESPIRATORY SYSTEM: Normal AP diameter. No accessory muscle use. No wheezing, no crackles. ABDOMEN: Soft, bowel sounds present, nontender, no distention. CENTRAL NERVOUS SYSTEM: Cranial nerves II-XII grossly intact, nonfocal. EXTREMITIES: Bilateral lower extremity +2 edema present, no erythema seen. LABORATORY DATA: WBC 7.2, hemoglobin 13.2, hematocrit 39.5, platelets 214. Sodium 136, potassium 3.7, chloride 110, bicarbonate 17, BUN 13, creatinine 1.1, serum glucose 138, total bilirubin 0.6, AST 26, ALT 27, alkaline phosphatase 74. Troponin I less than 0.03. SARS-CoV-2 negative. IMAGING: Chest x-ray: Mild pulmonary edema with bilateral pleural effusion, stable 2 cm nodule in the right mid lung, likely reflects fissural fluid. EKG: Normal sinus rhythm with nonspecific ST-T wave abnormality at a rate of 99. ASSESSMENT AND PLAN: This is a 51-year-old male who presents with worsening lower extremity edema. 1. Acute on chronic systolic and diastolic congestive heart failure: Last echocardiogram ejection fraction of 25%-30%. The patient is supposed to be on Lasix as needed, but not taking; supposed to be on spironolactone/hydrochlorothiazide, not taking, so he is noncompliant with medications. Currently place on IV Lasix 40 b.i.d. Continue his home metoprolol succinate. Further medication adjustment as per cardiology. We will follow daily weights, intakes and outputs. Monitor in the telemetry floor. 2. Diabetes: Hold metformin. Place on insulin sliding scale. 3. Hypertension: Continue his metoprolol succinate for now and also is getting diuretics. 4. Sleep apnea: On CPAP at bedtime. 5. History of cerebrovascular accident: Supposed to be on aspirin, we will place him on aspirin. He says he had cardiac catheterization last admission, which showed mild coronary artery disease. 6. Deep venous thrombosis prophylaxis: We will place him on Lovenox. DISPOSITION: Closely monitor in tele floor. Level 1 full code. Job ID: [id number] [facility] [place] [facility]
[2021-04-25] MEDS: INSULIN ASPART PER UNIT SC SCH ×4 (08:30→20:37)
[2021-04-25] MEDS ORDERED: ONDANSETRON INJ 2 MG/ML 2 ML VIAL IV PRN (08:37)
[2021-04-25] MEDS ORDERED: NITROGLYCERIN SL 0.4 MG/TAB TAB SL PRN (08:37)
[2021-04-25] MEDS ORDERED: ACETAMINOPHEN 325 MG TAB PO PRN (08:37)
[2021-04-25] MEDS ORDERED: POLYETHYLENE (MIRALAX) 17 GM PACK PO PRN (08:37)
[2021-04-25] MEDS ORDERED: GLUCOSE 40% GEL 15 GM TUBE PO PRN (08:45)
[2021-04-25] MEDS ORDERED: DEXTROSE 50% 50 ML SYRINGE IV PRN (08:45)
[2021-04-25] MEDS ORDERED: CARBOHYDRATES FOR HYPOGLYCEMIA PO PRN (08:45)
[2021-04-25] MEDS ORDERED: GLUCOSE 10 TABS/TUBE PO PRN (08:45)
[2021-04-25] MEDS ORDERED: GLUCAGON FOR INJ 1 MG VIAL IM PRN (08:45)
[2021-04-25] MEDS ORDERED: PATIENT'S HEIGHT AND/OR WEIGHT NEEDED SCH (08:45)
--- NOTE | 2021-04-25 10:08 | Cardiology Consultation ---
Date of Consultation April 25, 2021 Assessment & Plan (1) HFrEF (heart failure with reduced ejection fraction): (2) Nonischemic congestive cardiomyopathy: NICM, HFrEF with LVEF 25-30%. Dx 12/2020. Exacerbation likely due to medication noncompliance. 1. Continue with IV diuresis 40 mg BID- trend BMP and replace electrolytes as necessary 2. Future plans to optimize GDMT prior to discharge. Patient was on Spironolactone 25 mg daily and Entresto 49-51 mg dosing 3. Continue metoprolol 100 mg BID 4. STANDING daily weights 5. STRICT I&O with 2 g sodium diet. 1500 mL fluid restriction 6. Repeat Echo to reassess LV systolic function (3) HTN, goal below 130/80: Elevated. Plan as above. Supervising Physician Co-Signing Physician Notes Patient seen and examined at the bedside. Reports progressive edema and 40 pound weight gain over the past few months. He has not taken any goal-directed medical therapy since January. Denies chest pain, orthopnea, or PND. Notes dyspnea with exertion and reduced stamina. Reports his legs feel "heavy". Hypertensive in ER. Telemetry revealing sinus rhythm and sinus tachycardia with a heart rate averaging 100 bpm. PE: Tachycardic, hypertensive. General: NAD, awake alert and oriented x3. HEENT: Mucous membranes moist, no scleral icterus. Neck: + JVD. No carotid bruit. Heart: Regular, tachycardia, normal S1/S2. No murmur. Lungs: Diminished breath sounds at the bases bilateral, no rales, rhonchi, wheeze. Extremities: 2+ pitting edema bilaterally up to the hips. Neurologic: No focal motor deficit A/P: Agree with above DANITA history, physical exam, assessment and plan. Patient will require significant diuresis during hospitalization. Initiate IV furosemide 40 mg twice daily. Restart metoprolol succinate 100 mg twice daily due to hypertension and tachycardia. Add topical nitrates for afterload reduction. Restart goal-directed medical therapy as hospital course unfolds including Entresto and Aldactone pending review of a.m. labs. Follow fluid balance, standing daily weight, GFR, and electrolytes. Further evaluation of nonischemic cardiomyopathy including serum ferritin, SPEP, UPEP, and free light chains. History of Present Illness Reason for Consultation: Acute on Chronic CHF [facility] Attending Physician: Augustin Lugo MD History of Present Illness 51 year old male. PMH of NICM, Hypertensive heart disease, dyslipidemia, chronic cough, CVA Recently diagnosed with NICM 12/2020. Last seen by the undersigned in office- Gely danette presented with acute decompensated systolic heart failure with an LVEF of 25-30% at [facility], 12/2020. Echo performed at that time was suspicious for hypertensive heart disease with possible inferior/septal and infarct pattern. Patient underwent cardiac catheterization without significant obstruction. He was treated with guideline directed medical therapy for nonischemic cardiomyopathy. In office on 12/21 patient was on Entresto, spironolactone, and metoprolol. Out patient monitor showed SR with an average HR in the 90s. Metoprolol was to be increased to 125mg twice daily. Patient did not show to his follow up appt on 01/18. Has not been evaluated as an outpatient since December. Patient has concerns of worsening lower extremity edema. Has been ongoing x4 weeks now. Denies any dietary indiscretions- but he stated he has not been on his other medications for about 3 months now (assume since he was last seen in office). He has only been taking metformin and metoprolol. Notes that he lost weight at home, but last office weight in December was 229 lbs, he is up about 40 lbs. Unable to ambulate without becoming extremely dyspneic. No orthopnea. +4 lower extremity edema up to the groin, does not swelling of his genitals. + cough. Patient is resting comfortably in bed. Not requiring o2. using 1 pillow. HOB relatively flat. Denies chest pain. No palpitations, lightheadedness or di zziness. No syncope. BLood pressures elevated, no headaches. Seems to be somewhat of a poor historian. 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 Home Medications Medication Instructions Recorded Confirmed Type aspirin 81 mg tablet,delayed 81 mg PO QAM #30 tab 12/16/20 04/25/21 Rx release blood sugar diagnostic (Ilianauch #100 ea 12/16/20 Rx Verio test strips) lancets 33 gauge (Isis Thacker #100 ea 12/16/20 Rx Lancets) metformin 500 mg tablet,extended 500 mg PO BID #120 tab 12/16/20 04/25/21 Rx release 24 hr metoprolol succinate 100 mg 100 mg PO BID #60 tab 12/16/20 04/25/21 Rx tablet,extended release 24 hr Patient History Medical History Abnormal LFTs Acute hyperglycemia Bilateral pneumonia Diabetes Elevated serum creatinine Hypertension Pericardial effusion Pulmonary edema Surgical History No pertinent past surgical history Social History Smoking Status: Former smoker Hx Alcohol Use: No Hx Substance Use: No Preferred Language: Wolof Communication Ability: Effective Map Colorer Required: No Beliefs That Will Affect Care: None Current Living Situation: Significant Other Feels Safe at Home: Yes Assistive Devices: None Review of Systems Review of Systems: All systems reviewed & are unremarkable except as noted in HPI & below Physical Exam Physical Exam: General: No acute distress. A+Ox3. HEENT: Normocephalic. Atraumatic. Conjunctiva and sclera clear. NECK: No carotid bruits. + JVD. Carotid upstrokes are brisk. Heart: Reg. Tachy. S1 and S2 noted without murmur, rubs, gallops. Lungs: Rales throughout lung mullins, overall diminished Abdomen: Normal bowel sounds. Soft. Nontender. No masses or organomegaly. No abdominal bruits. Extremities: +3 to +4 BL pitting lower extremity edema up to the genetials. No clubbing or cyanosis. Pulses: radial=2/4, posterior tibial=2/4, dorsalis pedis = 2/4. NEURO: No focal deficits. PSYCH: Normal. Results & Data ([facility]) Vital Signs (Past 12 Hours) Vital Signs Temp Pulse Pulse Resp BP BP Pulse Ox 04/25/21 08:51 04/25/21 08:49 94 H 18 179/130 H 95 04/25/21 07:23 102 H 18 179/130 H 99 04/25/21 03:59 36.8 C 110 H 20 177/112 H 99 Pulse Ox 04/25/21 08:51 95 04/25/21 08:49 04/25/21 07:23 04/25/21 03:59 Laboratory Results 04/25/21 04/25/21 04/25/21 Range/Units 08:53 04:19 04:19 WBC (4.8-10.8) K/uL RBC (4.7-6.1) M/uL Hgb (14.0-18.0) g/dL Hct (42-52) % MCV (80-100) fL MCH (25-34) pg MCHC (32-36) g/dL RDW Std Deviation (36.4-46.3) fL RDW Coeff of Trina (11.5-14.5) % Plt Count (130-400) K/uL MPV (7.4-10.4) fL Immature Gran % (Auto) % Neut % (Auto) % Lymph % (Auto) % Lucas % (Auto) % Eos % (Auto) % Baso % (Auto) % Neut # (Auto) (1.4-6.5) K/uL Lymph # (Auto) (1.2-3.4) K/uL Lucas # (Auto) (0.11-0.59) K/uL Eos # (Auto) (0-0.5) K/uL Baso # (Auto) (0-0.2) K/uL Immature Gran # (Auto) (0.00-0.02) K/uL Sodium 136 (136-145) mmol/L Potassium 3.7 (3.5-5.1) mmol/L Chloride 110 H (98-107) mmol/L Carbon Dioxide 17 L (21-32) mmol/L Anion Gap 9 (3-11) BUN 13 (6-23) mg/dl Creatinine 1.13 (0.6-1.4) mg/dl Est Cr Clr Drug Dosing Not Reportable Est GFR ( Amer) 85.5 ml/min Est GFR (Non-Af Amer) 73.8 ml/min BUN/Creatinine Ratio 11.5 (10-20) Glucose 138 H (70-99(Fasting)) mg/dl POC Glucose 86 (70-99) mg/dl Calcium 8.7 (8.5-10.1) mg/dl Total Bilirubin 0.6 (0.2-1.0) mg/dl AST 26 (13-39) U/L ALT 27 (7-52) U/L Alkaline Phosphatase 75 (34-104) U/L Troponin I < 0.03 (0-0.04) ng/ml B-Natriuretic Peptide (0-100) pg/ml Total Protein 5.9 L (6.0-8.3) gm/dl Albumin 3.4 (3.4-5.0) gm/dl Globulin 2.5 (2.5-4.0) gm/dl Albumin/Globulin Ratio 1.4 (0.9-2) SARS-CoV-2, RNA, NAAT NEGATIVE (NEGATIVE) 04/25/21 04/25/21 Range/Units 04:19 04:19 WBC 7.23 (4.8-10.8) K/uL RBC 4.87 (4.7-6.1) M/uL Hgb 13.2 L (14.0-18.0) g/dL Hct 39.5 L (42-52) % MCV 81.1 (80-100) fL MCH 27.1 (25-34) pg MCHC 33.4 (32-36) g/dL RDW Std Deviation 41.2 (36.4-46.3) fL RDW Coeff of Trina 13.8 (11.5-14.5) % Plt Count 214 (130-400) K/uL MPV 10.4 (7.4-10.4) fL Immature Gran % (Auto) 0.3 % Neut % (Auto) 62.1 % Lymph % (Auto) 23.7 % Lucas % (Auto) 7.5 % Eos % (Auto) 5.8 % Baso % (Auto) 0.6 % Neut # (Auto) 4.50 (1.4-6.5) K/uL Lymph # (Auto) 1.71 (1.2-3.4) K/uL Lucas # (Auto) 0.54 (0.11-0.59) K/uL Eos # (Auto) 0.42 (0-0.5) K/uL Baso # (Auto) 0.04 (0-0.2) K/uL Immature Gran # (Auto) 0.02 (0.00-0.02) K/uL Sodium (136-145) mmol/L Potassium (3.5-5.1) mmol/L Chloride (98-107) mmol/L Carbon Dioxide (21-32) mmol/L Anion Gap (3-11) BUN (6-23) mg/dl Creatinine (0.6-1.4) mg/dl Est Cr Clr Drug Dosing Est GFR ( Amer) ml/min Est GFR (Non-Af Amer) ml/min BUN/Creatinine Ratio (10-20) Glucose (70-99(Fasting)) mg/dl POC Glucose (70-99) mg/dl Calcium (8.5-10.1) mg/dl Total Bilirubin (0.2-1.0) mg/dl AST (13-39) U/L ALT (7-52) U/L Alkaline Phosphatase (34-104) U/L Troponin I (0-0.04) ng/ml B-Natriuretic Peptide 1903 H (0-100) pg/ml Total Protein (6.0-8.3) gm/dl Albumin (3.4-5.0) gm/dl Globulin (2.5-4.0) gm/dl Albumin/Globulin Ratio (0.9-2) SARS-CoV-2, RNA, NAAT (NEGATIVE) Diagnostic Findings Cardiac catheterization 12/14/2020 at [facility] with Dr. Fernando Right dominant coronary are now to me with mild luminal irregularities and no obstructive disease Severe diffuse left ventricular dysfunction with an EF of 15-20% Mild mitral insufficiency Moderate pulmonary hypertension secondary to elevated left ventricular end- diastolic pressure Systolic and diastolic hypertension No transaortic her mitral valve gradients, no equalization of pressures Echo 12/12/2020 at [facility] Normal LV chamber size. Prominent large posterior papillary muscle noted. Thinning and akinesis of the anterior septal and inferior septal schneider. Severe LVH remaining wall segments with moderate global hypokinesis Akinesis of the inferior inferior septal and anterior septal schneider with otherwise mild to moderate global hypokinesis Grade 2 diastolic dysfunction Thickened RV free wall Mild aortic valve sclerosis without stenosis Restricted motion of the posterior mitral valve leaflet secondary to inferior wall akinesis with subsequent moderate secondary mitral regurg Large, loculated anterior pericardial effusion noted. There is no diastolic compression of the right ventricle to suggest cardiac tamponade. There is no echocardiographic indication of cardiac tamponade
[2021-04-25] MEDS: FUROSEMIDE 40 MG/4 ML VIAL IV SCH ×2 (12:12→20:37)
[2021-04-25] MEDS: ENOXAPARIN INJ 40 MG/0.4 ML SYR SQ SCH (13:06)
[2021-04-25] MEDS: METOPROLOL SUCC 50MG EXT REL TAB PO SCH ×2 (13:06→22:14)
[2021-04-25] MEDS: NITROGLYCERIN 2% OINTMENT 30GM TUBE EXT SCH ×3 (14:24→23:31)
[2021-04-26] MEDS: NITROGLYCERIN 2% OINTMENT 30GM TUBE EXT SCH ×3 (06:07→16:55)
--- NOTE | 2021-04-26 06:20 | Electrocardiogram Report ---
Test Reason : Blood Pressure : / mmHG Vent. Rate : 099 BPM Atrial Rate : 099 BPM P-R Int : 174 ms QRS Dur : 080 ms QT Int : 380 ms P-R-T Axes : 052 043 069 degrees QTc Int : 487 ms Normal sinus rhythm Nonspecific T wave abnormality Prolonged QT Abnormal ECG When compared with ECG of 13-DEC-2020 06:19, T wave inversion less evident in Anterior leads Confirmed by Emil Lewis ([id number]) on 04/26/2021 6:20:17 AM Referred By: REFERRED SELF Confirmed By:Emil Lewis
[2021-04-26 07:46] LABS: Basophils # (auto) 0.06 K/uL (0-0.2); Eosinophils # (auto) 0.43 K/uL (0-0.5); Eosinophils % (auto) 7.3 %; Hematocrit (blood only) 38.6 % (42-52); Hemoglobin 12.8 g/dL (14.0-18.0); Lymphocytes % (auto) 27.1 %; Mean Corpuscular Hemoglobin 27.2 pg (25-34); Mean Corpuscular Hgb Conc 33.2 g/dL (32-36); Mean Platelet Volume 10.6 fL (7.4-10.4); Monocytes # (auto) 0.59 K/uL (0.11-0.59); Neutrophils # (auto) 3.22 K/uL (1.4-6.5); Neutrophils % (auto) 54.6 %; Platelet Count 197 K/uL (130-400); RDW Coefficient of Variation 13.8 % (11.5-14.5); RDW Standard Deviation 41.6 fL (36.4-46.3); Red Blood Count 4.71 M/uL (4.7-6.1)
[2021-04-26 08:07] LABS: BUN Creatinine Ratio 10.3 (10-20); Calcium 8.7 mg/dl (8.5-10.1); Creatinine Clr Calc Pharmacy 103.8 ml/min; Est GFR (African American) 82.9 ml/min; Est GFR (Non-African American) 71.5 ml/min; Magnesium 1.8 mg/dl (1.7-2.4); Potassium 3.5 mmol/L (3.5-5.1)
[2021-04-26] MEDS: METOPROLOL SUCC 50MG EXT REL TAB PO SCH ×2 (08:09→20:23)
[2021-04-26] MEDS: FUROSEMIDE 40 MG/4 ML VIAL IV SCH ×2 (08:13→20:22)
[2021-04-26] MEDS: INSULIN ASPART PER UNIT SC SCH ×4 (08:13→20:22)
[2021-04-26] MEDS: ENOXAPARIN INJ 40 MG/0.4 ML SYR SQ SCH (09:19)
[2021-04-26 09:21] LABS: Estimated Average Glucose 128 mg/dl; Hemoglobin A1C 6.1 % (4.5-5.6)
--- NOTE | 2021-04-26 10:51 | Cardiology Progress Note ---
Date of Service April 26, 2021 Assessment & Plan (1) HFrEF (heart failure with reduced ejection fraction): (2) Nonischemic congestive cardiomyopathy: (3) HTN, goal below 130/80: Plan: Elevated. Plan as above. Plan: 51-year-old male with nonischemic cardiomyopathy presenting with acute on chronic decompensated congestive heart failure right greater than left after lapse in guideline directed medical therapies. Echo reflecting reduced ejection fraction and moderate to severe mitral insufficiency. Patient is responding to IV diuretics we will continue Continue oral metoprolol succinate Restart Entresto with plans to upward titrate Add spironolactone Admission and Anticipated Discharge Date Admission Date: April 25, 2021 Subjective Patient seen and examined, chart, medications, telemetry reviewed. No arrhythmias. Has had brisk diuresis overnight and clinically improving. Blood pressure still significantly elevated. Review of Systems Review of Systems: All systems reviewed & are unremarkable except as noted in Subjective Physical Exam Constitutional: well developed and well nourished; no acute distress Eyes: PERRL, conjunctivae normal, anicteric sclerae ENMT: external ear and nose normal, oropharynx normal Neck: trachea midline, no thyromegaly Respiratory: no respiratory distress Auscultation: + diminished lung sounds Cardiovascular: Extremities: + edema (3+ to mid thigh) Gastrointestinal (Abdomen): normal bowel sounds, soft, nontender, no hepatosplenomegaly Musculoskeletal: no cyanosis or clubbing, extremities motor strength 5/5 Neurologic: PERRL, EOMI, accommodation nl, no face palsy, no dysarthria Psychiatric: A+Ox3, euthymic affect Results & Data ([facility]) Vital Signs (Past 12 Hours) Vital Signs Temp Pulse Pulse Resp BP BP Pulse Ox 04/26/21 09:39 161/110 H 04/26/21 08:37 04/26/21 08:00 102 H 04/26/21 07:16 36.5 C 96 H 18 177/116 H 98 04/26/21 03:10 36.7 C 95 H 20 176/107 H 99 04/26/21 02:48 95 H 20 99 04/26/21 00:14 115 H 04/25/21 23:30 36.5 C 112 H 18 179/117 H 97 Pulse Ox 04/26/21 09:39 04/26/21 08:37 98 04/26/21 08:00 04/26/21 07:16 04/26/21 03:10 04/26/21 02:48 04/26/21 00:14 04/25/21 23:30 Laboratory Results Laboratory Results - last 24 hr 04/25/21 04/25/21 04/25/21 11:47 13:46 13:46 WBC RBC Hgb Hct MCV MCH MCHC RDW Std Deviation RDW Coeff of Trina Plt Count MPV Immature Gran % (Auto) Neut % (Auto) Lymph % (Auto) Preble % (Auto) Eos % (Auto) Baso % (Auto) Neut # (Auto) Lymph # (Auto) Preble # (Auto) Eos # (Auto) Baso # (Auto) Immature Gran # (Auto) Sodium Potassium Chloride Carbon Dioxide Anion Gap BUN Creatinine Est Cr Clr Drug Dosing Est GFR ( Amer) Est GFR (Non-Af Amer) BUN/Creatinine Ratio Glucose POC Glucose 108 H Estimat Average Glucose Hemoglobin A1c Calcium Magnesium Total Protein (PEP) Pending Albumin (PEP) Pending Axghd-6-Jvpzndcte Pending Tyvge-8-Svhvlrprb Pending Bfis-6-Ucskfwrm Pending Fuob-9-Fuuzaawl Pending Gamma Globulins Pending Monoclonal Peak 3 Pending Ser Monoclonl Protein Pending Ser Monoclonal Prot 2 Pending PEP Interpretation Pending TSH 3.347 Urine Immunofixation Free [place] LC, Quant Pending Free Lambda LC, Quant Pending Free [place]/Lambda Ratio Pending 04/25/21 04/25/21 04/25/21 13:58 16:51 20:34 WBC RBC Hgb Hct MCV MCH MCHC RDW Std Deviation RDW Coeff of Trina Plt Count MPV Immature Gran % (Auto) Neut % (Auto) Lymph % (Auto) Preble % (Auto) Eos % (Auto) Baso % (Auto) Neut # (Auto) Lymph # (Auto) Preble # (Auto) Eos # (Auto) Baso # (Auto) Immature Gran # (Auto) Sodium Potassium Chloride Carbon Dioxide Anion Gap BUN Creatinine Est Cr Clr Drug Dosing Est GFR ( Amer) Est GFR (Non-Af Amer) BUN/Creatinine Ratio Glucose POC Glucose 93 80 Estimat Average Glucose Hemoglobin A1c Calcium Magnesium Total Protein (PEP) Albumin (PEP) Memzi-0-Wqirallfx Nkocs-3-Shzvqcfwl Sjxi-1-Bpgewdtg Hxgv-2-Caukdnvt Gamma Globulins Monoclonal Peak 3 Ser Monoclonl Protein Ser Monoclonal Prot 2 PEP Interpretation TSH Urine Immunofixation Pending Free [place] LC, Quant Free Lambda LC, Quant Free [place]/Lambda Ratio 04/26/21 04/26/21 04/26/21 06:56 06:56 06:56 WBC 5.90 RBC 4.71 Hgb 12.8 L Hct 38.6 L MCV 82.0 MCH 27.2 MCHC 33.2 RDW Std Deviation 41.6 RDW Coeff of Trina 13.8 Plt Count 197 MPV 10.6 H Immature Gran % (Auto) 0.0 Neut % (Auto) 54.6 Lymph % (Auto) 27.1 Preble % (Auto) 10.0 Eos % (Auto) 7.3 Baso % (Auto) 1.0 Neut # (Auto) 3.22 Lymph # (Auto) 1.60 Preble # (Auto) 0.59 Eos # (Auto) 0.43 Baso # (Auto) 0.06 Immature Gran # (Auto) 0.00 Sodium 141 Potassium 3.5 Chloride 109 H Carbon Dioxide 26 Anion Gap 6 BUN 12 Creatinine 1.16 Est Cr Clr Drug Dosing 103.8 Est GFR ( Amer) 82.9 Est GFR (Non-Af Amer) 71.5 BUN/Creatinine Ratio 10.3 Glucose 87 POC Glucose Estimat Average Glucose 128 Hemoglobin A1c 6.1 H Calcium 8.7 Magnesium 1.8 Total Protein (PEP) Albumin (PEP) Irrfv-4-Ckxxrwbcr Prmth-5-Bqwrzvshs Qvok-7-Rklqawpq Crxu-6-Gnodunjt Gamma Globulins Monoclonal Peak 3 Ser Monoclonl Protein Ser Monoclonal Prot 2 PEP Interpretation TSH Urine Immunofixation Free [place] LC, Quant Free Lambda LC, Quant Free [place]/Lambda Ratio 04/26/21 04/26/21 06:56 07:14 WBC RBC Hgb Hct MCV MCH MCHC RDW Std Deviation RDW Coeff of Trina Plt Count MPV Immature Gran % (Auto) Neut % (Auto) Lymph % (Auto) Preble % (Auto) Eos % (Auto) Baso % (Auto) Neut # (Auto) Lymph # (Auto) Preble # (Auto) Eos # (Auto) Baso # (Auto) Immature Gran # (Auto) Sodium Potassium Chloride Carbon Dioxide Anion Gap BUN Creatinine Est Cr Clr Drug Dosing Est GFR ( Amer) Est GFR (Non-Af Amer) BUN/Creatinine Ratio Glucose POC Glucose 99 Estimat Average Glucose Hemoglobin A1c Calcium Magnesium Total Protein (PEP) Pending Albumin (PEP) Pending Pvdig-7-Oojijcbgc Pending Eidrx-0-Vbpgfpzlu Pending Csik-2-Bqsqdzjb Pending Tijm-7-Vkyqkudg Pending Gamma Globulins Pending Monoclonal Peak 3 Pending Ser Monoclonl Protein Pending Ser Monoclonal Prot 2 Pending PEP Interpretation Pending TSH Urine Immunofixation Free [place] LC, Quant Free Lambda LC, Quant Free [place]/Lambda Ratio Medications Administered Current Medications Acetaminophen (Acetaminophen 325 Mg Tab) 650 mg PO Q4H PRN PRN Reason: Pain or Fever Stop: 05/25/21 08:36 Dextrose (Dextrose 50% 50 Ml Syringe) 25 - 50 ml IV UD PRN; Protocol PRN Reason: Hypoglycemia Protocol Stop: 05/25/21 08:44 Enoxaparin Sodium (Enoxaparin Inj 40 Mg/0.4 Ml Syr) 40 mg SQ Q24H ANTON Stop: 05/25/21 08:59 Last Admin: 04/26/21 09:19 Dose: 40 mg Documented by: Furosemide (Furosemide 40 Mg/4 Ml Vial) 40 mg IV BID ANTON Stop: 05/25/21 08:59 Last Admin: 04/26/21 08:13 Dose: 40 mg Documented by: Glucagon (Glucagon For Inj 1 Mg Vial) 1 mg IM UD PRN; Protocol PRN Reason: Hypoglycemia Protocol Stop: 05/25/21 08:44 Glucose (Glucose 40% Gel 15 Gm Tube) 15 - 30 gm PO UD PRN; Protocol PRN Reason: Hypoglycemia Protocol Stop: 05/25/21 08:44 Glucose (Glucose 10 Tabs/Tube) 4 - 8 tabs PO UD PRN; Protocol PRN Reason: Hypoglycemia Protocol Stop: 05/25/21 08:44 Insulin Aspart (Insulin Aspart Per Unit) 0 units SC ACHS ANTON Stop: 05/25/21 08:36 Last Admin: 04/26/21 08:13 Dose: 2 units Documented by: Metoprolol Succinate (Metoprolol Succ 50mg Ext Rel Tab) 100 mg PO BID [facility] Stop: 05/25/21 08:59 Last Admin: 04/26/21 08:09 Dose: 100 mg Documented by: Miscellaneous (Carbohydrates For Hypoglycemia ) 15 - 30 gm PO UD PRN PRN Reason: Hypoglycemia Treatment Stop: 05/25/21 08:44 Nitroglycerin (Nitroglycerin Sl 0.4 Mg/Tab Tab) 0.4 mg SL UD PRN PRN Reason: Chest Pain Stop: 05/25/21 08:36 Nitroglycerin (Nitroglycerin 2% Ointment 30gm Tube) 1 inch EXT Q6H ANTON Stop: 05/25/21 12:14 Last Admin: 04/26/21 06:07 Dose: 1 inch Documented by: Ondansetron HCl (Ondansetron Inj 2 Mg/Ml 2 Ml Vial) 4 mg IV Q6H PRN PRN Reason: Nausea Stop: 05/25/21 08:36 Polyethylene Glycol (Polyethylene (Miralax) 17 Gm Pack) 17 gm PO DAILY PRN PRN Reason: Constipation Stop: 05/25/21 08:36
[2021-04-26] MEDS: VALSARTAN/SACUBITRIL 26/24MG TAB PO SCH ×2 (11:41→20:23)
[2021-04-26] MEDS: SPIRONOLACTONE 12.5 MG TAB PO SCH (11:41)
--- NOTE | 2021-04-26 12:01 | Hospitalist Progress Note ---
Date of Service April 26, 2021 Assessment & Plan (1) Nonischemic congestive cardiomyopathy: (2) HFrEF (heart failure with reduced ejection fraction): Plan: ASSESSMENT AND PLAN: This is a 51-year-old male who presents with worsening lower extremity edema. 1. Acute on chronic systolic and diastolic congestive heart failure: echocardiogram ejection fraction of 25%-30%. diuresing well negative 7 L so far continue Lasix 40mg IV BID Spironolactone and Entresto started 2. Diabetes: Hold metformin. Insulin Sliding Scale 3. Hypertension: Entresto added continue Metoprolol 4. Sleep apnea: On CPAP at bedtime. 5. History of cerebrovascular accident: ASA started 6. Deep venous thrombosis prophylaxis: Lovenox. DISPOSITION: Closely monitor in tele floor. Level 1 full code. Admission and Anticipated Discharge Date Admission Date: April 25, 2021 Subjective ff up for CHF exacerbation, etc seen resting in bed, comfortable states he feels improved overall no chest pain, dyspnea, palpitations, dizziness no other symptoms Review of Systems Review of Systems: all noted and negative except for above Physical Exam Physical Exam: General- oriented x 3, not in distress, speaks in sentences with no effort or accessory muscle use Eyes- anicteric Neck- no JVD Lungs-mild rales at the bases Heart- normal rate, regular rhythm; no murmurs Abdomen- normal bowel sounds, nondistended, soft, nontender Extremities- grade 1 lower leg edema, no calf tenderness Neuro- alert, oriented x 3; no gross focal neurologic deficits Skin- warm & dry Results & Data Results & Data ([facility]) Vital Signs (Past 12 Hours) Vital Signs Temp Pulse Pulse Resp BP Pulse Ox Pulse Ox 04/26/21 11:48 36.6 C 97 H 18 174/112 H 92 04/26/21 09:39 161/110 H 04/26/21 08:37 98 04/26/21 08:00 102 H 04/26/21 07:16 36.5 C 96 H 18 177/116 H 98 04/26/21 03:10 36.7 C 95 H 20 176/107 H 99 04/26/21 02:48 95 H 20 99 04/26/21 00:14 115 H all noted and reviewed including below
[2021-04-27] MEDS: NITROGLYCERIN 2% OINTMENT 30GM TUBE EXT SCH ×4 (00:44→16:52)
[2021-04-27] MEDS: VALSARTAN/SACUBITRIL 26/24MG TAB PO SCH (08:17)
[2021-04-27] MEDS: SPIRONOLACTONE 12.5 MG TAB PO SCH (08:17)
[2021-04-27] MEDS: METOPROLOL SUCC 50MG EXT REL TAB PO SCH (08:17)
[2021-04-27] MEDS: ENOXAPARIN INJ 40 MG/0.4 ML SYR SQ SCH (08:17)
[2021-04-27] MEDS: FUROSEMIDE 40 MG/4 ML VIAL IV SCH (08:22)
[2021-04-27] MEDS: INSULIN ASPART PER UNIT SC SCH ×4 (08:22→20:26)
[2021-04-27 09:26] LABS: BUN Creatinine Ratio 9.3 (10-20); Calcium 8.6 mg/dl (8.5-10.1); Creatinine Clr Calc Pharmacy 105.2 ml/min; Est GFR (African American) 90.3 ml/min; Est GFR (Non-African American) 77.9 ml/min; Potassium 3.2 mmol/L (3.5-5.1)
[2021-04-27] MEDS ORDERED: POTASSIUM CHLORIDE CRTAB 20 MEQ TABCR PO STA (09:35)
[2021-04-27] MEDS ORDERED: METOPROLOL SUCC 25MG EXT REL TAB PO ONE (11:43)
[2021-04-27] MEDS ORDERED: VALSARTAN/SACUBITRIL 26/24MG TAB PO ONE (11:44)
--- NOTE | 2021-04-27 11:48 | Cardiology Progress Note ---
Date of Service April 27, 2021 Assessment & Plan (1) HFrEF (heart failure with reduced ejection fraction): (2) Nonischemic congestive cardiomyopathy: (3) HTN, goal below 130/80: Plan: Elevated. Plan as above. Plan: 51-year-old male with nonischemic cardiomyopathy presenting with acute on chronic decompensated congestive heart failure right greater than left after lapse in guideline directed medical therapies. Echo reflecting reduced ejection fraction and moderate to severe mitral insufficiency. Patient is responding to IV diuretics we will continue but hold evening dose this evening given brisk response Increase oral metoprolol succinate to 125 mg twice per day Upward titrate Entresto Increase spironolactone to 25 mg p.o. daily No arrhythmias on telemetry but anticipate referral to electrophysiology post hospital discharge Admission and Anticipated Discharge Date Admission Date: April 25, 2021 Subjective Patient was seen and examined, chart, medications, telemetry reviewed. Continues to have brisk diuresis with substantial improvement in lower extremity edema. No chest pains or shortness of breath. Still hypertensive. No arrhythmias on telemetry Review of Systems Review of Systems: All systems reviewed & are unremarkable except as noted in Subjective Physical Exam Constitutional: well developed and well nourished; no acute distress Eyes: PERRL, conjunctivae normal, anicteric sclerae ENMT: external ear and nose normal, oropharynx normal Neck: trachea midline, no thyromegaly Respiratory: no respiratory distress Auscultation: + diminished lung sounds Cardiovascular: Rate/Rhythm: regular rate and regular rhythm Extremities: + edema (2-3+ lower extremity) Gastrointestinal (Abdomen): normal bowel sounds, soft, nontender, no hepatosplenomegaly Musculoskeletal: no cyanosis or clubbing, extremities motor strength 5/5 Neurologic: PERRL, EOMI, accommodation nl, no face palsy, no dysarthria Psychiatric: A+Ox3, euthymic affect Results & Data ([facility]) Vital Signs (Past 12 Hours) Vital Signs Temp Pulse Pulse Resp BP Pulse Ox 04/27/21 08:06 37.1 C 94 H 14 168/100 H 92 04/27/21 07:29 99 H 04/27/21 03:12 87 20 94 04/27/21 03:10 36.6 C 95 H 18 176/108 H 98 04/27/21 02:26 92 H Laboratory Results Laboratory Results - last 24 hr 04/26/21 04/26/21 04/27/21 16:24 20:13 07:07 Sodium Potassium Chloride Carbon Dioxide Anion Gap BUN Creatinine Est Cr Clr Drug Dosing Est GFR ( Amer) Est GFR (Non-Af Amer) BUN/Creatinine Ratio Glucose POC Glucose 95 96 93 Calcium 04/27/21 04/27/21 08:24 10:58 Sodium 142 Potassium 3.2 L Chloride 106 Carbon Dioxide 33 H Anion Gap 3 BUN 10 Creatinine 1.08 Est Cr Clr Drug Dosing 105.2 Est GFR ( Amer) 90.3 Est GFR (Non-Af Amer) 77.9 BUN/Creatinine Ratio 9.3 L Glucose 123 H POC Glucose 110 H Calcium 8.6
--- NOTE | 2021-04-27 14:57 | Hospitalist Progress Note ---
Date of Service April 27, 2021 Assessment & Plan (1) Nonischemic congestive cardiomyopathy: (2) HFrEF (heart failure with reduced ejection fraction): Plan: ASSESSMENT AND PLAN: This is a 51-year-old male who presents with worsening lower extremity edema. 1. ACUTE ON CHRONIC SYSTOLIC AND DIASTOLIC CONGESTIVE HEART FAILURE: echocardiogram ejection fraction of 25%-30%. diuresing well--negative 17 L fluid balance Hold Lasix 40mg IV BID Spironolactone and Entresto increased 2. DIABETES: Hold metformin. Insulin Sliding Scale 3. HYPERTENSION: Entresto added continue Metoprolol, increased 4. SLEEP APNEA: On CPAP at bedtime. 5. HISTORY OF CEREBROVASCULAR ACCIDENT: ASA started 6. Deep venous thrombosis prophylaxis: Lovenox. DISPOSITION: Pending Anticipate discharge to home when medically stable Admission and Anticipated Discharge Date Admission Date: April 25, 2021 Subjective Follow-up for acute CHF exacerbation, etc. Seen sleeping but easily awakened Comfortable, not in distress States he continues to feel improved No shortness of breath, cough No dizziness, lightheadedness, chest pain, palpitations Other symptoms Review of Systems Review of Systems: all noted and negative except for above Physical Exam Physical Exam: General- oriented x 3, not in distress, speaks in sentences with no effort or accessory muscle use Eyes- anicteric Neck- no JVD Lungs- clear breath sounds bilaterally, no rales/wheezes Heart- normal rate, regular rhythm; no murmurs Abdomen- normal bowel sounds, nondistended, soft, nontender Extremities- trace pretibial edema, no calf tenderness Neuro- alert, oriented x 3; no gross focal neurologic deficits Skin- warm & dry Results & Data Results & Data ([facility]) Vital Signs (Past 12 Hours) Vital Signs Temp Pulse Pulse Resp BP Pulse Ox 04/27/21 12:02 36.5 C 96 H 16 173/129 H 93 04/27/21 08:06 37.1 C 94 H 14 168/100 H 92 04/27/21 07:29 99 H 04/27/21 03:12 87 20 94 04/27/21 03:10 36.6 C 95 H 18 176/108 H 98 all noted and reviewed including below
[2021-04-27] MEDS: METOPROLOL SUCC 25MG EXT REL TAB PO SCH (20:18)
[2021-04-27] MEDS: VALSARTAN/SACUBITRIL 51/49 MG TAB PO SCH (20:19)
[2021-04-28] MEDS: NITROGLYCERIN 2% OINTMENT 30GM TUBE EXT SCH ×4 (01:30→17:56)
[2021-04-28] MEDS: ENOXAPARIN INJ 40 MG/0.4 ML SYR SQ SCH (07:53)
[2021-04-28] MEDS: FUROSEMIDE 40 MG/4 ML VIAL IV SCH (07:53)
[2021-04-28] MEDS: METOPROLOL SUCC 25MG EXT REL TAB PO SCH (07:54)
[2021-04-28] MEDS: VALSARTAN/SACUBITRIL 51/49 MG TAB PO SCH (07:55)
[2021-04-28 07:56] LABS: BUN Creatinine Ratio 10.3 (10-20); Calcium 8.4 mg/dl (8.5-10.1); Creatinine Clr Calc Pharmacy 116.8 ml/min; Est GFR (African American) 102.9 ml/min; Est GFR (Non-African American) 88.8 ml/min; Potassium 3.3 mmol/L (3.5-5.1)
[2021-04-28] MEDS: INSULIN ASPART PER UNIT SC SCH ×4 (08:23→21:11)
[2021-04-28] MEDS ORDERED: SPIRONOLACTONE 25 MG TAB PO SCH (09:00)
[2021-04-28] MEDS ORDERED: POTASSIUM CHLORIDE CRTAB 20 MEQ TABCR PO SCH (09:00)
--- NOTE | 2021-04-28 11:21 | Hospitalist Progress Note ---
Date of Service April 28, 2021 Assessment & Plan (1) Nonischemic congestive cardiomyopathy: (2) HFrEF (heart failure with reduced ejection fraction): Plan: ASSESSMENT AND PLAN: This is a 51-year-old male who presents with worsening lower extremity edema. 1. ACUTE ON CHRONIC SYSTOLIC AND DIASTOLIC CONGESTIVE HEART FAILURE: echocardiogram ejection fraction of 25%-30%. diuresing well--negative 21 L fluid balance Lasix reduced to 40 mg IV daily Spironolactone Metoprolol and Entresto increased 2. DIABETES: Hold metformin. Insulin Sliding Scale 3. HYPERTENSION: As per above 4. SLEEP APNEA: On CPAP at bedtime. 5. HISTORY OF CEREBROVASCULAR ACCIDENT: ASA started 6. Deep venous thrombosis prophylaxis: Lovenox. DISPOSITION: Pending Anticipate discharge to home when medically stable Admission and Anticipated Discharge Date Admission Date: April 25, 2021 Subjective Follow-up for acute on chronic CHF exacerbation, etc. Seen resting in bed, comfortable, In good spirits States he feels improved overall No shortness of breath, chest pain, dizziness, palpitations Ambulating with no problems No leg pain No other symptoms Review of Systems Review of Systems: all noted and negative except for above Physical Exam Physical Exam: General- oriented x 3, not in distress, speaks in sentences with no effort or accessory muscle use Eyes- anicteric Neck- no JVD Lungs- clear BS BL Heart- normal rate, regular rhythm; no murmurs Abdomen- normal bowel sounds, nondistended, soft, nontender Extremities- mild pretibial edema, no calf tenderness Neuro- alert, oriented x 3; no gross focal neurologic deficits Skin- warm & dry Results & Data Results & Data ([facility]) Vital Signs (Past 12 Hours) Vital Signs Temp Pulse Pulse Resp BP BP Pulse Ox 04/28/21 08:00 04/28/21 07:47 36.5 C 96 H 18 165/108 H 92 04/28/21 07:41 94 H 04/28/21 06:09 96 H 04/28/21 02:51 36.8 C 91 H 20 151/93 H 97 04/28/21 02:05 101 H 24 97 04/27/21 23:21 36.6 C 95 H 20 167/105 H 97 Pulse Ox 04/28/21 08:00 94 04/28/21 07:47 04/28/21 07:41 04/28/21 06:09 04/28/21 02:51 04/28/21 02:05 04/27/21 23:21 all noted and reviewed including below
[2021-04-28] MEDS ORDERED: METOPROLOL SUCC 25MG EXT REL TAB PO STA (11:53)
--- NOTE | 2021-04-28 12:33 | Cardiology Progress Note ---
Date of Service April 28, 2021 Assessment & Plan (1) HFrEF (heart failure with reduced ejection fraction): (2) Nonischemic congestive cardiomyopathy: (3) HTN, goal below 130/80: Plan: Elevated. Plan as above. Plan: 51-year-old male with nonischemic cardiomyopathy presenting with acute on chronic decompensated congestive heart failure right greater than left after lapse in guideline directed medical therapies. Echo reflecting reduced ejection fraction and moderate to severe mitral insufficiency. Patient is responding to IV diuretics we will continue Increase spironolactone to 25 mg p.o. twice daily Increase metoprolol succinate to 150 mg twice per day. Continue current dosing of Entresto with room to increase further No arrhythmias on telemetry but anticipate referral to electrophysiology post hospital discharge Admission and Anticipated Discharge Date Admission Date: April 25, 2021 Subjective Patient was seen and examined, chart, medications, telemetry reviewed. No acute complaints overnight no arrhythmias on telemetry. Lower extremity edema c ontinues to improve with ongoing diuresis. Blood pressure and heart rate slowly trending lower. Review of Systems Review of Systems: All systems reviewed & are unremarkable except as noted in Subjective Physical Exam Constitutional: well developed and well nourished; no acute distress Eyes: PERRL, conjunctivae normal, anicteric sclerae ENMT: external ear and nose normal, oropharynx normal Neck: trachea midline, no thyromegaly Respiratory: no respiratory distress Auscultation: + diminished lung sounds Cardiovascular: Rate/Rhythm: regular rate and regular rhythm Extremities: + edema (1-2+ lower extremity) Gastrointestinal (Abdomen): normal bowel sounds, soft, nontender, no hepatosplenomegaly Musculoskeletal: no cyanosis or clubbing, extremities motor strength 5/5 Neurologic: PERRL, EOMI, accommodation nl, no face palsy, no dysarthria Psychiatric: A+Ox3, euthymic affect Results & Data ([facility]) Vital Signs (Past 12 Hours) Vital Signs Temp Pulse Pulse Resp BP BP Pulse Ox 04/28/21 11:27 36.8 C 90 19 138/93 96 04/28/21 08:00 04/28/21 07:47 36.5 C 96 H 18 165/108 H 92 04/28/21 07:41 94 H 04/28/21 06:09 96 H 04/28/21 02:51 36.8 C 91 H 20 151/93 H 97 04/28/21 02:05 101 H 24 97 Pulse Ox 04/28/21 11:27 04/28/21 08:00 94 04/28/21 07:47 04/28/21 07:41 04/28/21 06:09 04/28/21 02:51 04/28/21 02:05 Laboratory Results Laboratory Results - last 24 hr 04/27/21 04/27/21 04/28/21 16:08 20:05 06:59 Sodium 139 Potassium 3.3 L Chloride 108 H Carbon Dioxide 30 Anion Gap 1 L BUN 10 Creatinine 0.97 Est Cr Clr Drug Dosing 116.8 Est GFR ( Amer) 102.9 Est GFR (Non-Af Amer) 88.8 BUN/Creatinine Ratio 10.3 Glucose 99 POC Glucose 93 145 H Calcium 8.4 L 04/28/21 04/28/21 07:17 11:16 Sodium Potassium Chloride Carbon Dioxide Anion Gap BUN Creatinine Est Cr Clr Drug Dosing Est GFR ( Amer) Est GFR (Non-Af Amer) BUN/Creatinine Ratio Glucose POC Glucose 106 H 124 H Calcium
[2021-04-28] MEDS ORDERED: METOPROLOL SUCC 50MG EXT REL TAB PO SCH (21:00)
[2021-04-28] MEDS: POTASSIUM CHLORIDE CRTAB 20 MEQ TABCR PO SCH (21:12)
[2021-04-28] MEDS: VALSARTAN/SACUBITRIL 103/97MG TAB PO SCH (21:12)
[2021-04-28] MEDS: SPIRONOLACTONE 25 MG TAB PO SCH (21:12)
[2021-04-29] MEDS: NITROGLYCERIN 2% OINTMENT 30GM TUBE EXT SCH ×2 (00:43→06:08)
[2021-04-29 06:07] LABS: BUN Creatinine Ratio 10.8 (10-20); Calcium 8.4 mg/dl (8.5-10.1); Creatinine Clr Calc Pharmacy 112.8 ml/min; Est GFR (African American) 108.2 ml/min; Est GFR (Non-African American) 93.4 ml/min; Potassium 3.7 mmol/L (3.5-5.1)
[2021-04-29] MEDS: SPIRONOLACTONE 25 MG TAB PO SCH ×2 (08:11→21:02)
[2021-04-29] MEDS: POTASSIUM CHLORIDE CRTAB 20 MEQ TABCR PO SCH (08:13)
[2021-04-29] MEDS: METOPROLOL SUCC 50MG EXT REL TAB PO SCH ×2 (08:13→21:02)
[2021-04-29] MEDS: ENOXAPARIN INJ 40 MG/0.4 ML SYR SQ SCH (08:14)
[2021-04-29] MEDS: FUROSEMIDE 40 MG/4 ML VIAL IV SCH (08:14)
[2021-04-29] MEDS: INSULIN ASPART PER UNIT SC SCH ×4 (08:15→21:01)
[2021-04-29] MEDS: VALSARTAN/SACUBITRIL 103/97MG TAB PO SCH ×2 (08:15→21:03)
--- NOTE | 2021-04-29 10:23 | Cardiology Progress Note ---
Date of Service April 29, 2021 Assessment & Plan (1) HFrEF (heart failure with reduced ejection fraction): (2) Nonischemic congestive cardiomyopathy: (3) HTN, goal below 130/80: Plan: Elevated. Plan as above. Plan: 51-year-old male with nonischemic cardiomyopathy presenting with acute on chronic decompensated congestive heart failure right greater than left after lapse in guideline directed medical therapies. Echo reflecting reduced ejection fraction and moderate to severe mitral insufficiency. Patient improved substantially since admission. Entresto titrated to maximal dosing Metoprolol succinate will be increased to 20 mg twice per day Spironolactone at 25 mg twice per day We will discontinue IV furosemide after today's dose and begin daily oral dosing Stop topical nitrates and begin oral nitrates Reduce potassium supplement once daily Repeat BMP in a.m. Admission and Anticipated Discharge Date Admission Date: April 25, 2021 Subjective Patient was seen and examined, chart, medications, telemetry reviewed. Patient continues to have brisk diuresis now down 20 kg since admission. Overall feels substantially improved lower extremity edema nearly resolved. Heart rate and blood pressure slowly coming down but still elevated. Review of Systems Review of Systems: All systems reviewed & are unremarkable except as noted in Subjective Physical Exam Constitutional: well developed and well nourished; no acute distress Eyes: PERRL, conjunctivae normal, anicteric sclerae ENMT: external ear and nose normal, oropharynx normal Neck: trachea midline, no thyromegaly Respiratory: no respiratory distress Auscultation: + diminished lung sounds Cardiovascular: Rate/Rhythm: regular rate and regular rhythm Extremities: + edema (1+ lower extremity) Gastrointestinal (Abdomen): normal bowel sounds, soft, nontender, no hepatosplenomegaly Musculoskeletal: no cyanosis or clubbing, extremities motor strength 5/5 Neurologic: PERRL, EOMI, accommodation nl, no face palsy, no dysarthria Psychiatric: A+Ox3, euthymic affect Results & Data ([facility]) Vital Signs (Past 12 Hours) Vital Signs Temp Pulse Pulse Resp BP Pulse Ox 04/29/21 08:00 89 04/29/21 07:21 36.6 C 94 H 20 150/105 H 98 04/29/21 04:38 36.7 C 92 H 18 150/96 H 98 04/29/21 03:20 92 H 24 98 04/28/21 23:48 95 H 04/28/21 23:30 82 23 95 04/28/21 22:36 37.0 C 96 H 16 160/105 H 96 Laboratory Results Laboratory Results - last 24 hr 04/28/21 04/28/21 04/28/21 11:16 16:29 21:10 Sodium Potassium Chloride Carbon Dioxide Anion Gap BUN Creatinine Est Cr Clr Drug Dosing Est GFR ( Amer) Est GFR (Non-Af Amer) BUN/Creatinine Ratio Glucose POC Glucose 124 H 101 H 102 H Calcium 04/29/21 05:23 Sodium 140 Potassium 3.7 Chloride 107 Carbon Dioxide 28 Anion Gap 5 BUN 10 Creatinine 0.93 Est Cr Clr Drug Dosing 112.8 Est GFR ( Amer) 108.2 Est GFR (Non-Af Amer) 93.4 BUN/Creatinine Ratio 10.8 Glucose 94 POC Glucose Calcium 8.4 L
--- NOTE | 2021-04-29 11:19 | Hospitalist Progress Note ---
Date of Service April 29, 2021 Assessment & Plan (1) Nonischemic congestive cardiomyopathy: (2) HFrEF (heart failure with reduced ejection fraction): Plan: ASSESSMENT AND PLAN: This is a 51-year-old male who presents with worsening lower extremity edema. 1. ACUTE ON CHRONIC SYSTOLIC AND DIASTOLIC CONGESTIVE HEART FAILURE: echocardiogram ejection fraction of 25%-30%. diuresing well--negative 24 L fluid balance Lasix IV given, held Started on: Spironolactone 25mg daily Entresto twice daily Metoprolol, increased to 200 mg p.o. twice daily Imdur 60 mg p.o. every morning Continue to monitor closely COVID-19 EXPOSURE Notified by infection control committee that patient, while admitted to the hospitasl, was exposed to an individual who tested positive for COVID-19 Discussed with patient at the bedside, with Anna from infection control committee Recommendation is to obtain COVID-19 test today-negative and monitor closely for symptoms Patient without COVID-19 symptoms as of today Chest [id number] for pneumonia Repeat COVID-19 test on Thursday Patient requesting to remain in the hospital until second Covid test is negative Single room will be provided for the patient Patient very upset, reassured that we will guide him through this process His was updated over the phone by the infection control committee 2. DIABETES: Hold metformin. Insulin Sliding Scale 3. HYPERTENSION: As per above 4. SLEEP APNEA: On CPAP at bedtime. 5. HISTORY OF CEREBROVASCULAR ACCIDENT: ASA started 6. Deep venous thrombosis prophylaxis: Lovenox. DISPOSITION: Pending Anticipate discharge to home when medically stable Admission and Anticipated Discharge Date Admission Date: April 25, 2021 Subjective Follow-up for acute on chronic CHF exacerbation, etc. Seen resting in bed, comfortable, not in distress Denies shortness of breath, cough, fevers or chills, sore throat No abdominal pain, nausea vomiting No other symptoms Review of Systems Review of Systems: all noted and negative except for above Physical Exam Physical Exam: General- oriented x 3, not in distress, speaks in sentences with no effort or accessory muscle use Eyes- anicteric Neck- no JVD Lungs- clear BS BL Heart- normal rate, regular rhythm; no murmurs Abdomen- normal bowel sounds, nondistended, soft, nontender Extremities- no pretibial edema, no calf tenderness Neuro- alert, oriented x 3; no gross focal neurologic deficits Skin- warm & dry Results & Data Results & Data ([facility]) Vital Signs (Past 12 Hours) Vital Signs Temp Pulse Pulse Resp BP Pulse Ox 04/29/21 08:00 89 04/29/21 07:21 36.6 C 94 H 20 150/105 H 98 04/29/21 04:38 36.7 C 92 H 18 150/96 H 98 04/29/21 03:20 92 H 24 98 04/28/21 23:48 95 H 04/28/21 23:30 82 23 95 all noted and reviewed including below
[2021-04-29] MEDS: ISOSORBIDE MONO EXTENDED REL 60 MG TABCR PO SCH (11:43)
--- NOTE | 2021-04-29 11:51 | XRay Report ---
SINGLE VIEW CHEST CLINICAL HISTORY: Follow-up congestive failure. FINDINGS: An AP, portable, upright chest radiograph is compared to study dated 04/25/2021. Correlation is made with chest CT dated 12/11/2020. The heart is enlarged. There is mild pulmonary vascular conges tion. There are small pleural effusions with dependent atelectasis. No pneumothorax is seen. The bony thorax is grossly intact. IMPRESSION: 1. Cardiomegaly with mild pulmonary vascular congestion. This appears modestly improved as compared t o 04/25/2021. 2. Small pleural effusions with dependent atelectasis. ACT 112: Negative or not required by law. Electronically signed by: Scar Martines M.D. 04/29/2021 11:50 AM
[2021-04-29 17:56] LABS: Albumin 3.2 g/dL (3.8-4.8); Alpha 1 Globulin 0.4 g/dL (0.2-0.3); Alpha 2 Globulin 0.7 g/dL (0.5-0.9); Beta-1-Globulin 0.4 g/dL (0.4-0.6); Beta-2-Globulin 0.3 g/dL (0.2-0.5); Free Kappa 33.6 mg/L (3.3-19.4); Free Lambda 19.8 mg/L (5.7-26.3); Gamma Globulin 0.9 g/dL (0.8-1.7); Monoclonal Protein Band 1 DNR g/dL (NONE DETECTED); Monoclonal Protein Band 2 DNR g/dL (NONE DETECTED); Monoclonal Protein Band 3 DNR g/dL (NONE DETECTED); Total Protein 5.9 g/dL (6.1-8.1)
[2021-04-30 07:14] LABS: BUN Creatinine Ratio 10.5 (10-20); Est GFR (African American) 114.7 ml/min; Potassium 3.9 mmol/L (3.5-5.1)
[2021-04-30] MEDS: ENOXAPARIN INJ 40 MG/0.4 ML SYR SQ SCH (09:42)
[2021-04-30] MEDS: METOPROLOL SUCC 50MG EXT REL TAB PO SCH ×2 (09:43→21:07)
[2021-04-30] MEDS: ISOSORBIDE MONO EXTENDED REL 60 MG TABCR PO SCH (09:44)
[2021-04-30] MEDS: SPIRONOLACTONE 25 MG TAB PO SCH ×2 (09:44→21:06)
[2021-04-30] MEDS: VALSARTAN/SACUBITRIL 103/97MG TAB PO SCH ×2 (09:44→21:08)
[2021-04-30] MEDS: POTASSIUM CHLORIDE CRTAB 20 MEQ TABCR PO SCH (09:45)
[2021-04-30] MEDS: INSULIN ASPART PER UNIT SC SCH ×4 (09:45→21:05)
[2021-04-30 11:35] LABS: Albumin 2.9 g/dL (3.8-4.8); Alpha 1 Globulin 0.3 g/dL (0.2-0.3); Alpha 2 Globulin 0.6 g/dL (0.5-0.9); Beta-1-Globulin 0.4 g/dL (0.4-0.6); Beta-2-Globulin 0.3 g/dL (0.2-0.5); Gamma Globulin 0.9 g/dL (0.8-1.7); Monoclonal Protein Band 1 DNR g/dL (NONE DETECTED); Monoclonal Protein Band 2 DNR g/dL (NONE DETECTED); Monoclonal Protein Band 3 DNR g/dL (NONE DETECTED); Total Protein 5.4 g/dL (6.1-8.1)
[2021-04-30] MEDS: hydrALAZINE 10 MG TAB PO SCH ×2 (13:29→21:09)
[2021-04-30] MEDS: FUROSEMIDE 40 MG TAB PO SCH (13:29)
--- NOTE | 2021-04-30 13:30 | Hospitalist Progress Note ---
Date of Service April 30, 2021 Assessment & Plan (1) Nonischemic congestive cardiomyopathy: (2) HFrEF (heart failure with reduced ejection fraction): Plan: ASSESSMENT AND PLAN: This is a 51-year-old male who presents with worsening lower extremity edema. ACUTE ON CHRONIC SYSTOLIC AND DIASTOLIC CONGESTIVE HEART FAILURE: echocardiogram ejection fraction of 25%-30%. diuresing well--negative 26 L fluid balance Lasix IV given, changed to Lasix 40mg po daily Started on: Spironolactone 25mg BID Entresto twice daily Metoprolol, increased to 200 mg p.o. twice daily Imdur 60 mg p.o. every morning Hydralazine 10mg po TID Continue to monitor closely COVID-19 EXPOSURE Notified by infection control committee that patient, while admitted to the hospitasl, was exposed to an individual who tested positive for COVID-19 Discussed with patient at the bedside, with Anna from infection control committee Recommendation is to obtain COVID-19 test today-negative and monitor closely for symptoms Patient without COVID-19 symptoms as of today Chest [id number] for pneumonia Repeat COVID-19 test on Thursday Patient requesting to remain in the hospital until second Covid test is negative Single room will be provided for the patient Patient very upset, reassured that we will guide him through this process His was updated over the phone by the infection control committee DIABETES Hold metformin. Insulin Sliding Scale HYPERTENSION As per above SLEEP APNEA: On CPAP at bedtime. HISTORY OF CEREBROVASCULAR ACCIDENT ASA 81mg po daily Deep venous thrombosis prophylaxis Lovenox. DISPOSITION: Pending Anticipate discharge to home when medically stable Admission and Anticipated Discharge Date Admission Date: April 25, 2021 Subjective ff up for CHF exacerbation, etc seen resting in bed, comfortable not in distress states he feels fine overall denies dyspnea, cough, nasal congestion/discharge, sore throat no other symptoms Review of Systems Review of Systems: all noted and negative except for above Physical Exam Physical Exam: General- oriented x 3, not in distress, speaks in sentences with no effort or accessory muscle use Eyes- anicteric Neck- no JVD Lungs- clear breath sounds, no crackles, no wheezing Heart- normal rate, regular rhythm; no murmurs Abdomen- normal bowel sounds, nondistended, soft, nontender Extremities- no pretibial edema, no calf tenderness Neuro- alert, oriented x 3; no gross focal neurologic deficits Skin- warm & dry Results & Data Results & Data ([facility]) Vital Signs (Past 12 Hours) Vital Signs Temp Pulse Pulse Resp BP BP Pulse Ox 04/30/21 11:42 36.9 C 93 H 18 162/108 H 99 04/30/21 08:17 37.2 C 106 H 18 164/119 H 96 04/30/21 07:37 103 H 04/30/21 04:02 85 26 H 97 04/30/21 04:00 101 H 18 97 all noted and reviewed including below
--- NOTE | 2021-04-30 17:01 | Cardiology Progress Note ---
Date of Service April 30, 2021 Assessment & Plan (1) HFrEF (heart failure with reduced ejection fraction): (2) Nonischemic congestive cardiomyopathy: (3) HTN, goal below 130/80: Plan: Elevated. Plan as above. Plan: 51-year-old male with nonischemic cardiomyopathy presenting with acute on chronic decompensated congestive heart failure right greater than left after lapse in guideline directed medical therapies. Echo reflecting reduced ejection fraction and moderate to severe mitral insufficiency. Patient improved substantially since admission. Entresto titrated to maximal dosing Metoprolol succinate 200 mg twice per day Spironolactone at 25 mg twice per day We will add hydralazine 10 mg 3 times daily Begin oral furosemide Admission and Anticipated Discharge Date Admission Date: April 25, 2021 Subjective Patient's chart, telemetry and medications reviewed in detail. Care discussed with caregivers. No complaints today. Blood pressure still elevated but trending towards better control. Physical Exam Physical Exam: Patient not examined currently in isolation for possible Covid exposure in no acute physical complaints Results & Data ([facility]) Vital Signs (Past 12 Hours) Vital Signs Temp Pulse Pulse Resp BP BP Pulse Ox 04/30/21 16:25 96 H 04/30/21 15:58 37.7 C H 97 H 18 138/89 96 04/30/21 11:42 36.9 C 93 H 18 162/108 H 99 04/30/21 08:17 37.2 C 106 H 18 164/119 H 96 04/30/21 07:37 103 H Laboratory Results Laboratory Results - last 24 hr 04/25/21 04/25/21 04/26/21 13:46 13:58 06:56 Sodium Potassium Chloride Carbon Dioxide Anion Gap BUN Creatinine Est Cr Clr Drug Dosing Est GFR ( Amer) Est GFR (Non-Af Amer) BUN/Creatinine Ratio Glucose POC Glucose Calcium Total Protein (PEP) 5.9 L 5.4 L Albumin (PEP) 3.2 L 2.9 L Hzsuz-3-Aymstybxm 0.4 H 0.3 Whhel-0-Jpyaxrizy 0.7 0.6 Jpzt-7-Grymxcma 0.4 0.4 Nspm-2-Rhqabjib 0.3 0.3 Gamma Globulins 0.9 0.9 Monoclonal Peak 3 DNR DNR Ser Monoclonl Protein DNR DNR Ser Monoclonal Prot 2 DNR DNR PEP Interpretation SEE NOTE SEE NOTE Urine Immunofixation SEE NOTE Free [place] LC, Quant 33.6 H Free Lambda LC, Quant 19.8 Free [place]/Lambda Ratio 1.70 H 04/29/21 04/30/21 04/30/21 20:06 06:32 07:32 Sodium 139 Potassium 3.9 Chloride 107 Carbon Dioxide 27 Anion Gap 5 BUN 9 Creatinine 0.86 Est Cr Clr Drug Dosing 122.0 Est GFR ( Amer) 114.7 Est GFR (Non-Af Amer) 99.0 BUN/Creatinine Ratio 10.5 Glucose 103 H POC Glucose 88 88 Calcium 9.0 Total Protein (PEP) Albumin (PEP) Hbwgv-0-Bhstxjohl Qrjzh-8-Hnkikcfkl Tnkl-6-Qqodmwqw Wlms-3-Yswlzcqq Gamma Globulins Monoclonal Peak 3 Ser Monoclonl Protein Ser Monoclonal Prot 2 PEP Interpretation Urine Immunofixation Free [place] LC, Quant Free Lambda LC, Quant Free [place]/Lambda Ratio 04/30/21 04/30/21 11:26 16:10 Sodium Potassium Chloride Carbon Dioxide Anion Gap BUN Creatinine Est Cr Clr Drug Dosing Est GFR ( Amer) Est GFR (Non-Af Amer) BUN/Creatinine Ratio Glucose POC Glucose 104 H 92 Calcium Total Protein (PEP) Albumin (PEP) Gpzfy-5-Qsmfloyhi Edewm-0-Toaybqwtk Odkf-1-Eygoyqac Cjgp-5-Nbzsjpqb Gamma Globulins Monoclonal Peak 3 Ser Monoclonl Protein Ser Monoclonal Prot 2 PEP Interpretation Urine Immunofixation Free [place] LC, Quant Free Lambda LC, Quant Free [place]/Lambda Ratio
--- NOTE | 2021-04-30 17:32 | CT Scan Report ---
CT head/brain wo con CLINICAL HISTORY: 51 years-old Male with possible aphasia; r/o cva. Acute strokelike symptoms TECHNIQUE: Multiple axial CT images of the head were obtained without contrast. A dose lowering tech nique was utilized adhering to the principles of ALARA. CT DOSE: 537.48 mGy.cm COMPARISON: Head CT 02/06/2018 FINDINGS: No acute intracranial hemorrhage, midline shift, intracranial mass, hydrocephalus, territorial ischem ia or abnormal extra-axial collection. Age-related involutional changes with chronic microvascular is chemic disease. Multifocal areas of encephalomalacia are noted throughout the left cerebral hemispher e from chronic infarcts, notably involving the left frontal and parietal lobes and left basal ganglia . Ex vacuo ventriculomegaly of the left lateral ventricle. Low-lying cerebellar tonsils. Ill-defined 1.6 cm area of decreased attenuation involves the medial left frontal lobe on image 17 series 2 in th e anterior cerebral artery distribution which is new from prior. The calvarium is intact. The paranasal sinuses, mastoid air cells, and middle ear cavities are clear . IMPRESSION: 1. No acute intracranial hemorrhage, midline shift or acute territorial infarct. 2. Ill-defined area of decreased attenuation within the medial left frontal lobe within the anterior cerebral artery territory is new from prior study and is suspicious for an age-indeterminate infarct. 3. 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 ACT 112: Negative or not required by law. The above report was generated using voice recognition software. It may contain grammatical, syntax o r spelling errors. Electronically signed by: Geoff Adame M.D. 04/30/2021 5:31 PM
[2021-05-01 06:19] LABS: BUN Creatinine Ratio 8.7 (10-20); Calcium 8.9 mg/dl (8.5-10.1); Est GFR (African American) 109.7 ml/min; Est GFR (Non-African American) 94.6 ml/min; Potassium 4.3 mmol/L (3.5-5.1)
[2021-05-01] MEDS: ISOSORBIDE MONO EXTENDED REL 60 MG TABCR PO SCH (07:37)
[2021-05-01] MEDS: METOPROLOL SUCC 50MG EXT REL TAB PO SCH ×2 (07:38→21:30)
[2021-05-01] MEDS: hydrALAZINE 10 MG TAB PO SCH ×2 (07:39→13:57)
[2021-05-01] MEDS: INSULIN ASPART PER UNIT SC SCH ×4 (07:45→21:12)
--- NOTE | 2021-05-01 08:10 | Magnetic Resonance Report ---
MRI OF THE BRAIN WITHOUT IV CONTRAST CLINICAL HISTORY: Strokelike symptoms. Difficulty with word finding. COMPARISON STUDY: CT of the brain dated 04/30/2021. TECHNIQUE: MRI of the brain was performed utilizing various T1 and T2-weighted sequences in the axial , sagittal, and coronal planes. IV contrast was not administered for this examination. FINDINGS: Brain parenchyma: There is age-related involutional change noting mild subcortical and periventricula r microangiopathic disease. Foci of left frontal and left parietal encephalomalacia are consistent wi th remote infarcts. There is wallerian degeneration within the left aspect of the carl. A 14 mm focus of hemosiderin deposition in the left alvarado radiata is seen on gradient image #16. No midline shift is seen. There is no restricted diffusion atypical for acute ischemia. Patel-white matter differentia tion is preserved. No extra-axial fluid collection is seen. The cerebellar tonsils are normal in conf iguration. Ventricles, sulci, and cisterns: Prominent secondary to involutional change. There is mild ex vacuo d ilatation of the left lateral ventricle. Pituitary and sella: Unremarkable. Intracranial vasculature: Left internal carotid artery flow-void is diminished at the skull base. The remaining flow voids are maintained. Orbits: The bony orbits are grossly intact. Orbital contents are normal in appearance. Sinuses and mastoids: There is trace mucosal thickening in the left maxillary antrum. The remaining p aranasal sinuses and mastoid air cells are clear. Calvarium: Unremarkable. Cervical cord: Partially visualized cervical spinal cord is normal in morphology and signal intensity . IMPRESSION: 1. There is a 14 mm focus of hemosiderin deposition identified in the left alvarado radiata consistent with a subacute hemorrhage. 2. No additional foci of hemorrhage are identified. 3. There is no mass effect or evidence of acute ischemia. ACT 112: Negative or not required by law. Electronically signed by: Scar Martines M.D. 05/01/2021 8:09 AM
[2021-05-01] MEDS: ENOXAPARIN INJ 40 MG/0.4 ML SYR SQ SCH (08:12)
[2021-05-01] MEDS: ASPIRIN 81 MG ECTAB PO SCH (08:12)
[2021-05-01] MEDS: SPIRONOLACTONE 25 MG TAB PO SCH ×2 (08:13→21:30)
[2021-05-01] MEDS: VALSARTAN/SACUBITRIL 103/97MG TAB PO SCH ×2 (08:13→21:30)
[2021-05-01] MEDS: FUROSEMIDE 40 MG TAB PO SCH (08:13)
[2021-05-01] MEDS: POTASSIUM CHLORIDE CRTAB 20 MEQ TABCR PO SCH (08:17)
[2021-05-01] MEDS ORDERED: OPTIRAY 320 125ml IV ONE (10:40)
--- NOTE | 2021-05-01 11:16 | CT Scan Report ---
CT angio head wo/w, CT angio neck with con CLINICAL HISTORY: subacute hemorrhage TECHNIQUE: Contiguous axial CT images of the head were acquired from the base of the skull to the keri gabo without intravenous contrast administration. CT angiography of the head and neck was performed f ollowing intravenous administration of iodinated contrast. Coronal and sagittal MIPS were obtained fr om the axial data set and were submitted for review. Automated dose lowering techniques and/or adjus tment according to patient size were utilized for this examination. All measurements were calculated based on NASCET criteria. Comparison: Comparison is made to CT head 04/30/2021 FINDINGS: CT head: Redemonstration of left parafalcine hypodensity, somewhat less conspicuous than on the prior exam. Moderate right and small left pleural effusions are seen. CTA Neck: A 3 vessel aortic arch is shown. There is no significant atherosclerotic plaque in the aor tic arch or the origins of the innominate, left common carotid, and left subclavian arteries. There is hemodynamically significant stenosis of the left internal carotid artery just prior to its entry into the carotid canal. The left vertebral artery is dominant. CTA Head: The anterior and posterior cerebral circulations are patent. There is severe stenosis of t he supraclinoid portion of the left internal carotid artery. The left anterior cerebral artery appear s to be supplied anterior communicating artery, the A1 segment on the left is not clearly seen. The l eft MCA is patent to the M3 segments with possibly minimally decreased flow compared to the right. Th e right vertebral artery terminates in PICA. Atherosclerotic disease is noted. IMPRESSION: 1. Redemonstration of left paramedian frontal lobe hypodensity, which is slightly less conspicuous t rdz prior exam possibly representing evolutionary changes of ischemia/infarct. Chronic white matter c hanges are seen in the anterior watershed zone on the left likely secondary to chronic ischemia 2. There is hemodynamically significant stenosis of the internal carotid artery at the supraclinoid region. The left anterior cerebral artery is supplied from the right via the HILARIO. The left MCA is pos sibly slightly hypoperfused. The posterior circulation is intact. 3. There is also a focus of hemodynamically significant stenosis of the left internal carotid artery just prior to entering the carotid canal. 4. Moderate right and small left pleural effusion. Assessment of stenosis of the internal carotid arteries is based on NASCET criteria. ACT 112: Negative or not required by law. Electronically signed by: Devyn Dela Cruz M.D. 05/01/2021 11:14 AM
--- NOTE | 2021-05-01 12:05 | Neurology Consultation ---
Date of Consultation May 01, 2021 Assessment & Plan (1) Hx of stroke associated with congenital heart disease: 1. restart aspirin 81 mg for life 2. CTA head neck no new occlusion 3. keep blood pressure high normal permissive 4. cardiology for any further recommendations 5. MRI - hemosiderin deposits unknown timing 6. cardiology for CHF management follow up with PCP and cardiology will see as needed with neurology Supervising Physician Co-Signing Physician Notes I have seen and discussed above patient with Dr Sunny Paul, neurology Have interviewed and examined this young man who unfortunately has a significant residual aphasia and really cannot tell me whether he had any significant new neurologic symptoms when he presented with his congestive heart failure and exam shows at most a minimal clumsiness of the right hand and a lot of word finding issues and hesitancy in speech The MRI and CT scan show evidence for an area of presumptive hemorrhage versus hemorrhagic infarction in the left hemisphere in the same vascular distribution as his prior lesion and I suspect he had a subclinical CVA at some point in the past but this could be up to a month or more and a CTA shows no evidence for the occlusion was described on the prior study in 2018 and the supraclinoid portion of the internal carotid artery so the vessel has either recanalized with a prior examination was somewhat over interpreted. Whatever the case is clearly could be a residual source of recurrent strokes and I would recommend that he go back on his aspirin the same dosage. Claims to have been compliant with the medicati ons but he was not particularly compliant with some of the congestive heart failure medications that were made Neurology does not really need to see him in follow-up at this point We will sign off the case at this point Sunny Paul MD The above note was generated utilizing voice recognition technology and may have spelling errors punctuation errors pronoun usage errors and syntax errors History of Present Illness Reason for Consultation: subacute hemorrhage Requesting Physician: Merrick Powers MD Attending Physician: Merrick Powers MD History of Present Illness Shaggy is a 51 year old male with PMH- DM 2, , sleep apnea, HTN, history of CVA, obesity, recent diagnosis of diastolic and systolic CHF with EF of 25%-30%.He, was placed on spironolactone/hydrochlorothiazide and Entresto. His hydrochlorothiazide supposedly decreased to 12.5 mg p.o. daily, He was also placed on Lasix as needed, he is only taking metformin and metoprolol succinate, not taking any other medications, and he is coming in because of increasing lower extremity edema. he is doing much better since admission, LE edema is decreased. He is having issues with remembering and expressing thoughts. unclear if this is new or ongoing issue. Allergies Allergy/AdvReac Type Severity Reaction Status Date / Time bee venom protein (honey bee) Allergy Unknown anaplyaxsis Verified 12/11/20 21:20 . Home Medications Medication Instructions Recorded Confirmed Type aspirin 81 mg tablet,delayed 81 mg PO QAM #30 tab 12/16/20 04/25/21 Rx release blood sugar diagnostic (OneTouch #100 ea 12/16/20 Rx Verio test strips) lancets 33 gauge (OneTouch Delica #100 ea 12/16/20 Rx Lancets) metformin 500 mg tablet,extended 500 mg PO BID #120 tab 12/16/20 04/25/21 Rx release 24 hr metoprolol succinate 100 mg 100 mg PO BID #60 tab 12/16/20 04/25/21 Rx tablet,extended release 24 hr Patient History Medical History Abnormal LFTs Acute hyperglycemia Bilateral pneumonia Diabetes Elevated serum creatinine Hypertension Pericardial effusion Pulmonary edema Surgical History No pertinent past surgical history Social History Smoking Status: Never smoker Hx Alcohol Use: Yes Alcohol type: beer Hx Substance Use: No Preferred Language: Frisian Communication Ability: Effective Housing Management Representative Required: No Beliefs That Will Affect Care: None marital status: Current Living Situation: Spouse How many Children do You have: 1 Feels Safe at Home: Yes Safety Concerns: Feels Safe At This Time Review of Systems Review of Systems: All systems reviewed & are unremarkable except as noted in HPI & below Physical Exam Physical Exam: Physical Exam: Constitutional: appearance nourished, healthy and normal Ears, Nose, Mouth and Throat: mucous membranes moist, no injection and skin normal, eyes normal Cardiovascular: normal S-1 and S-2 and tachycardia Respiratory: course breath sounds Musculoskeletal: no peripheral edema and distant distal pulses Skin: no stigmata of neurocutaneous disease noted and normal and intact Eyes: extraocular muscles intact (EOMI) and pupils equal, round and reactive to light (PERRL) NEUROLOGIC EXAMINATION: Mental status: Alert and interactive Oriented to person Speech expressive and receptive a phasia Cranial Nerves smile eye brow raise symmetric Reflexes: Deep tendon reflexes were decreased throughout Sensory: intact to cool and light touch Coordination: finger to nose Gait/Stance: Posture lying in bed Motor: Negative for pronator drift of out stretched arms with eyes closed left , slight drift on right 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, hip flex 5/5 bilaterally Results & Data ([facility]) Vital Signs (Past 12 Hours) Vital Signs Temp Pulse Pulse Resp BP Pulse Ox 05/01/21 10:59 37.3 C 102 H 17 141/94 H 98 05/01/21 07:13 37.2 C 105 H 17 156/107 H 97 05/01/21 03:34 80 28 H 95 05/01/21 03:31 37.1 C 106 H 20 143/92 H 94 Laboratory Results Abnormal lab results 04/30/21 05/01/21 05/01/21 Range/Units 20:40 05:34 07:11 BUN/Creatinine Ratio 8.7 L (10-20) Glucose 102 H (70-99(Fasting)) mg/dl POC Glucose 115 H 108 H (70-99) mg/dl 05/01/21 Range/Units 10:56 BUN/Creatinine Ratio (10-20) Glucose (70-99(Fasting)) mg/dl POC Glucose 121 H (70-99) mg/dl Diagnostic Findings MRI brain-There is a 14 mm focus of hemosiderin deposition identified in the left alvarado radiata consistent with a subacute hemorrhage. No additional foci of hemorrhage are identified. There is no mass effect or evidence of acute ischemia. CTA head/neck-Redemonstration of left paramedian frontal lobe hypodensity, which is slightly less conspicuous than prior exam possibly representing evolutionary changes of ischemia/infarct. Chronic white matter changes are seen in the anterior watershed zone on the left likely secondary to chronic ischemia. There is hemodynamically significant stenosis of the internal carotid artery at the supraclinoid region. The left anterior cerebral artery is supplied from the right via the HILARIO. The left MCA is possibly slightly hypoperfused. The p osterior circulation is intact. There is also a focus of hemodynamically significant stenosis of the left internal carotid artery just prior to entering the carotid canal. Moderate right and small left pleural effusion.
--- NOTE | 2021-05-01 14:07 | Cardiology Progress Note ---
Date of Service May 01, 2021 Assessment & Plan (1) HFrEF (heart failure with reduced ejection fraction): (2) Nonischemic congestive cardiomyopathy: (3) HTN, goal below 130/80: Plan: Elevated. Plan as above. Plan: 51-year-old male with nonischemic cardiomyopathy presenting with acute on chronic decompensated congestive heart failure right greater than left after lapse in guideline directed medical therapies. Echo reflecting reduced ejection fraction and moderate to severe mitral insufficiency. Patient improved substantially since admission from volume status Entresto titrated to maximal dosing Metoprolol succinate 200 mg twice per day Spironolactone at 25 mg twice per day We will increase hydralazine 25 mg 3 times daily Continue oral furosemide with CHF instructions, daily weights Admission and Anticipated Discharge Date Admission Date: April 25, 2021 Subjective Patient chart, telemetry, medications reviewed. Concerns raised yesterday regarding possible change in speech pattern resulting in neurologic evaluation. Question acute findings per preliminary review Blood pressure still elevated Congestive heart failure improving Results & Data ([facility]) Vital Signs (Past 12 Hours) Vital Signs Temp Pulse Pulse Resp BP Pulse Ox 05/01/21 10:59 37.3 C 102 H 17 141/94 H 98 05/01/21 07:13 37.2 C 105 H 17 156/107 H 97 05/01/21 03:34 80 28 H 95 05/01/21 03:31 37.1 C 106 H 20 143/92 H 94 Laboratory Results Laboratory Results - last 24 hr 04/30/21 04/30/21 05/01/21 16:10 20:40 05:34 Sodium 138 Potassium 4.3 Chloride 107 Carbon Dioxide 25 Anion Gap 6 BUN 8 Creatinine 0.92 Est Cr Clr Drug Dosing 114.0 Est GFR ( Amer) 109.7 Est GFR (Non-Af Amer) 94.6 BUN/Creatinine Ratio 8.7 L Glucose 102 H POC Glucose 92 115 H Calcium 8.9 05/01/21 05/01/21 07:11 10:56 Sodium Potassium Chloride Carbon Dioxide Anion Gap BUN Creatinine Est Cr Clr Drug Dosing Est GFR ( Amer) Est GFR (Non-Af Amer) BUN/Creatinine Ratio Glucose POC Glucose 108 H 121 H Calcium
[2021-05-01] MEDS ORDERED: hydrALAZINE 10 MG TAB PO ONE (14:15)
--- NOTE | 2021-05-01 19:33 | Hospitalist Progress Note ---
Date of Service May 01, 2021 Assessment & Plan (1) Nonischemic congestive cardiomyopathy: (2) HFrEF (heart failure with reduced ejection fraction): Plan: ASSESSMENT AND PLAN: This is a 51-year-old male who presents with worsening lower extremity edema. ACUTE ON CHRONIC SYSTOLIC AND DIASTOLIC CONGESTIVE HEART FAILURE: echocardiogram ejection fraction of 25%-30%. diuresing well--negative 26 L fluid balance Lasix IV given, changed to Lasix 40mg po daily Cardiology on board recommended: Entresto titrate to maximum dose, Spironolactone 25mg BID, Metoprolol 200 mg p.o. twice daily, Imdur 60 mg p.o. daily and Hydralazine 25mg po TID Continue to monitor closely COVID-19 EXPOSURE Notified by infection control committee that patient, while admitted to the hospitasl, was exposed to an individual who tested positive for COVID-19 Discussed with patient at the bedside, with Anna from infection control committee Recommendation is to obtain COVID-19 test today-negative and monitor closely for symptoms Patient without COVID-19 symptoms as of today Chest [id number] for pneumonia Repeat COVID-19 test on Thursday Patient requesting to remain in the hospital until second Covid test is negative Single room will be provided for the patient Patient very upset, reassured that we will guide him through this process His was updated over the phone by the infection control committee Hx of stroke associated with congenital heart disease MRI brain showed 14 mm focus of hemosiderin deposition identified in the left alvarado radiata consistent with a subacute hemorrhage. CTA head/neck showed Redemonstration of left paramedian frontal lobe hypodensity, which is slightly less conspicuous than prior exam possibly representing evolutionary changes of ischemia/infarct.hemodynamically signifi cant stenosis of the internal carotid artery at the supraclinoid region. The left anterior cerebral artery is supplied from the right via the HILARIO. The left MCA is possibly slightly hypoperfused. No focal neuro deficit on exam Neurology on board recommend to restart aspirin 81 mg for life DIABETES Hold metformin. Insulin Sliding Scale HYPERTENSION As per above SLEEP APNEA: On CPAP at bedtime. HISTORY OF CEREBROVASCULAR ACCIDENT ASA 81mg po daily Deep venous thrombosis prophylaxis We will change Lovenox to heparin subcu twice daily DISPOSITION: Pending Anticipate discharge to home when medically stable Admission and Anticipated Discharge Date Admission Date: April 25, 2021 Subjective Patient was seen and examined for follow-up for CHF and subacute hemorrhage on MRI of the brain Lying in bed with no acute distress Patient said that he feels fine Denies any chest pain, palpitation, dizziness, shortness of breath. Review of Systems Review of Systems: All systems reviewed & are unremarkable except as noted in Subjective Physical Exam Physical Exam: General- No acute distress Head- atraumatic Eyes- PERRL, EOMI, ENT- oropharynx clear Neck- supple, no JVD Lungs- clear to auscultation Heart- regular rhythm; no murmur Abdomen- normal bowel sounds, soft, nontender Extremities- no calf tenderness Neuro- alert, oriented x 3; PERRL, EOMI; no facial palsy; no dysarthria Skin- warm & dry Results & Data Results & Data ([facility]) Vital Signs (Past 12 Hours) Vital Signs Temp Pulse Resp BP Pulse Ox 05/01/21 19:23 36.7 C 104 H 20 138/92 98 05/01/21 15:46 36.9 C 101 H 18 145/96 H 94 05/01/21 10:59 37.3 C 102 H 17 141/94 H 98
[2021-05-01] MEDS: hydrALAZINE HCL 25 MG TAB PO SCH (21:31)
[2021-05-02 06:19] LABS: Hematocrit (blood only) 41.3 % (42-52); Hemoglobin 13.7 g/dL (14.0-18.0); Mean Corpuscular Hemoglobin 27.1 pg (25-34); Mean Corpuscular Hgb Conc 33.2 g/dL (32-36); Mean Corpuscular Volume 81.8 fL (80-100); Mean Platelet Volume 11.7 fL (7.4-10.4); Platelet Count 150 K/uL (130-400); RDW Coefficient of Variation 13.9 % (11.5-14.5); RDW Standard Deviation 41.8 fL (36.4-46.3); Red Blood Count 5.05 M/uL (4.7-6.1); White Blood Count 5.58 K/uL (4.8-10.8)
[2021-05-02 06:51] LABS: BUN Creatinine Ratio 10.9 (10-20); Calcium 8.9 mg/dl (8.5-10.1); Creatinine Clr Calc Pharmacy 95.3 ml/min; Est GFR (African American) 88.4 ml/min; Est GFR (Non-African American) 76.2 ml/min; Potassium 4.8 mmol/L (3.5-5.1)
[2021-05-02] MEDS: INSULIN ASPART PER UNIT SC SCH ×4 (08:28→20:16)
[2021-05-02] MEDS: ASPIRIN 81 MG ECTAB PO SCH (08:29)
[2021-05-02] MEDS: SPIRONOLACTONE 25 MG TAB PO SCH ×2 (08:30→21:38)
[2021-05-02] MEDS: ISOSORBIDE MONO EXTENDED REL 60 MG TABCR PO SCH (08:30)
[2021-05-02] MEDS: FUROSEMIDE 40 MG TAB PO SCH (08:30)
[2021-05-02] MEDS: hydrALAZINE HCL 25 MG TAB PO SCH ×3 (08:30→21:39)
[2021-05-02] MEDS: VALSARTAN/SACUBITRIL 103/97MG TAB PO SCH ×2 (08:30→21:38)
[2021-05-02] MEDS: METOPROLOL SUCC 50MG EXT REL TAB PO SCH ×2 (08:31→21:39)
[2021-05-02] MEDS: POTASSIUM CHLORIDE CRTAB 20 MEQ TABCR PO SCH (08:36)
--- NOTE | 2021-05-02 17:29 | Cardiology Progress Note ---
Date of Service May 02, 2021 Assessment & Plan (1) HFrEF (heart failure with reduced ejection fraction): (2) Nonischemic congestive cardiomyopathy: (3) HTN, goal below 130/80: Plan: Elevated. Plan as above. Plan: 51-year-old male with nonischemic cardiomyopathy presenting with acute on chronic decompensated congestive heart failure right greater than left after lapse in guideline directed medical therapies. Echo reflecting reduced ejection fraction and moderate to severe mitral insufficiency. Patient improved substantially since admission from volume status Entresto titrated to maximal dosing Metoprolol succinate 200 mg twice per day Will increase by an additional 50 mg p.o. now and midday Spironolactone at 25 mg twice per day Continue hydralazine as ordered Oral furosemide as ordered Patient notes difficulty with cost of medications. Please refer to case management for aid if possible Admission and Anticipated Discharge Date Admission Date: April 25, 2021 Subjective Patient was seen and examined, chart, medications, telemetry reviewed Patient denies any acute complaints today Breathing easier lower extremity edema resolved. No tachypalpitations. No arrhythmias on telemetry. Blood pressure and heart rate slowly trending towards better control Review of Systems Review of Systems: All systems reviewed & are unremarkable except as noted in Subjective Physical Exam Physical Exam: Patient not examined currently in isolation for possible Covid exposure in no acute physical complaints Constitutional: well developed and well nourished; no acute distress Eyes: PERRL, conjunctivae normal, anicteric sclerae ENMT: external ear and nose normal, oropharynx normal Neck: trachea midline, no thyromegaly Respiratory: no respiratory distress Auscultation: + diminished lung sounds Cardiovascular: Rate/Rhythm: regular rate and regular rhythm Extremities: + edema (1+ lower extremity) Gastrointestinal (Abdomen): normal bowel sounds, soft, nontender, no hepatosplenomegaly Musculoskeletal: no cyanosis or clubbing, extremities motor strength 5/5 Neurologic: PERRL, EOMI, accommodation nl, no face palsy, no dysarthria Psychiatric: A+Ox3, euthymic affect Results & Data ([facility]) Vital Signs (Past 12 Hours) Vital Signs Temp Pulse Pulse Resp BP BP Pulse Ox 05/02/21 15:53 36.9 C 99 H 18 143/95 H 98 05/02/21 11:51 37.5 C 100 H 18 146/101 H 97 05/02/21 08:07 37.1 C 97 H 18 141/93 H 95 05/02/21 08:00 97 H Laboratory Results Laboratory Results - last 24 hr 05/01/21 05/02/21 05/02/21 20:21 05:44 05:44 WBC 5.58 RBC 5.05 Hgb 13.7 L Hct 41.3 L MCV 81.8 MCH 27.1 MCHC 33.2 RDW Std Deviation 41.8 RDW Coeff of Trina 13.9 Plt Count 150 MPV 11.7 H Sodium 138 Potassium 4.8 Chloride 106 Carbon Dioxide 28 Anion Gap 4 BUN 12 Creatinine 1.10 Est Cr Clr Drug Dosing 95.3 Est GFR ( Amer) 88.4 Est GFR (Non-Af Amer) 76.2 BUN/Creatinine Ratio 10.9 Glucose 107 H POC Glucose 103 H Calcium 8.9 05/02/21 05/02/21 05/02/21 07:33 11:27 16:12 WBC RBC Hgb Hct MCV MCH MCHC RDW Std Deviation RDW Coeff of Trina Plt Count MPV Sodium Potassium Chloride Carbon Dioxide Anion Gap BUN Creatinine Est Cr Clr Drug Dosing Est GFR ( Amer) Est GFR (Non-Af Amer) BUN/Creatinine Ratio Glucose POC Glucose 93 94 103 H Calcium
--- NOTE | 2021-05-02 21:09 | Hospitalist Progress Note ---
Date of Service May 02, 2021 Assessment & Plan (1) Nonischemic congestive cardiomyopathy: (2) HFrEF (heart failure with reduced ejection fraction): Plan: ASSESSMENT AND PLAN: This is a 51-year-old male who presents with worsening lower extremity edema. ACUTE ON CHRONIC SYSTOLIC AND DIASTOLIC CONGESTIVE HEART FAILURE: echocardiogram ejection fraction of 25%-30%. diuresing well--negative 26 L fluid balance Lasix IV given, changed to Lasix 40mg po daily Cardiology on board recommended: Entresto titrate to maximum dose, Spironolactone 25mg BID, Metoprolol 200 mg p.o. twice daily with an additional 50 mg dose added Continue Imdur 60 mg p.o. daily and Hydralazine 25mg po TID Continue to monitor closely COVID-19 EXPOSURE Notified by infection control committee that patient, while admitted to the hospitasl, was exposed to an individual who tested positive for COVID-19 Discussed with patient at the bedside, with Anna from infection control committee Recommendation is to obtain COVID-19 test today-negative and monitor closely for symptoms Patient without COVID-19 symptoms as of today Chest [id number] for pneumonia Patient requesting to remain in the hospital until second Covid test is negative Single room will be provided for the patient Patient very upset, reassured that we will guide him through this process His was updated over the phone by the infection control committee Will repeat COVID-19 test on Thursday Hx of stroke associated with congenital heart disease MRI brain showed 14 mm focus of hemosiderin deposition identified in the left alvarado radiata consistent with a subacute hemorrhage. CTA head/neck showed Redemonstration of left paramedian frontal lobe hypodensity, which is slightly less conspicuous than prior exam possibly representing evolutionary changes of ischemia/infarct.hemodynamically significant stenosis of the internal carotid artery at the supraclinoid region. The left anterior cerebral artery is supplied from the right via the HILARIO. The left MCA is possibly slightly hypoperfused. No focal neuro deficit on exam Neurology on board recommend to restart aspirin 81 mg for life Okay from neurology standpoint to start on DVT prophylaxis DIABETES Hold metformin. Insulin Sliding Scale HYPERTENSION As per above SLEEP APNEA: On CPAP at bedtime. HISTORY OF CEREBROVASCULAR ACCIDENT ASA 81mg po daily Deep venous thrombosis prophylaxis We will change Lovenox to heparin subcu twice daily DISPOSITION: Pending Anticipate discharge to home when medically stable Admission and Anticipated Discharge Date Admission Date: April 25, 2021 Subjective Patient was seen and examined for follow-up for CHF and subacute hemorrhage on MRI of the brain Lying in bed with no acute distress watching movie Patient said that he feels fine Denies any chest pain, palpitation, dizziness, shortness of breath. Review of Systems Review of Systems: All systems reviewed & are unremarkable except as noted in Subjective Physical Exam Physical Exam: General- No acute distress Head- atraumatic Eyes- PERRL, EOMI, ENT- oropharynx clear Neck- supple, no JVD Lungs- clear to auscultation Heart- regular rhythm; no murmur Abdomen- normal bowel sounds, soft, nontender Extremities- no calf tenderness Neuro- alert, oriented x 3; PERRL, EOMI; no facial palsy; no dysarthria Skin- warm & dry Results & Data Results & Data ([facility]) Vital Signs (Past 12 Hours) Vital Signs Temp Pulse Resp BP Pulse Ox 05/02/21 19:17 36.7 C 104 H 17 117/80 96 05/02/21 15:53 36.9 C 99 H 18 143/95 H 98 05/02/21 11:51 37.5 C 100 H 18 146/101 H 97
[2021-05-02] MEDS: HEPARIN SOD 5,000 UNIT/0.5 ML VIAL SQ SCH (21:40)
[2021-05-03] MEDS: ISOSORBIDE MONO EXTENDED REL 60 MG TABCR PO SCH (00:27)
[2021-05-03 07:41] LABS: BUN Creatinine Ratio 13.9 (10-20); Calcium 8.5 mg/dl (8.5-10.1); Creatinine Clr Calc Pharmacy 103.8 ml/min; Est GFR (Non-African American) 84.5 ml/min; Potassium 4.4 mmol/L (3.5-5.1)
[2021-05-03] MEDS: METOPROLOL SUCC 50MG EXT REL TAB PO SCH ×3 (08:35→20:29)
[2021-05-03] MEDS: ASPIRIN 81 MG ECTAB PO SCH (08:36)
[2021-05-03] MEDS: HEPARIN SOD 5,000 UNIT/0.5 ML VIAL SQ SCH ×2 (08:36→20:28)
[2021-05-03] MEDS: SPIRONOLACTONE 25 MG TAB PO SCH ×2 (08:36→20:30)
[2021-05-03] MEDS: FUROSEMIDE 40 MG TAB PO SCH (08:37)
[2021-05-03] MEDS: VALSARTAN/SACUBITRIL 103/97MG TAB PO SCH ×2 (08:37→20:30)
[2021-05-03] MEDS: hydrALAZINE HCL 25 MG TAB PO SCH ×3 (08:37→20:28)
[2021-05-03] MEDS: POTASSIUM CHLORIDE CRTAB 20 MEQ TABCR PO SCH (08:43)
--- NOTE | 2021-05-03 08:59 | Cardiology Progress Note ---
Date of Service May 03, 2021 Assessment & Plan (1) HFrEF (heart failure with reduced ejection fraction): (2) Nonischemic congestive cardiomyopathy: (3) HTN, goal below 130/80: Plan: Elevated. Plan as below Plan: 51-year-old male with nonischemic cardiomyopathy presenting with acute on chronic decompensated congestive heart failure right greater than left after lapse in guideline directed medical therapies. Echo reflecting reduced ejection fraction and moderate to severe mitral insufficiency. Patient improved substantially since admission from volume status- appears euvolemic on exam Entresto titrated to maximal dosing Currently on Metoprolol succinate 200 mg twice per day with an additional 50 mg at noon Spironolactone at 25 mg twice per day Continue hydralazine as ordered Continue furosemide 40 mg every morning Continue all cardiac medications as ordered at discharge. Patient notes difficulty with cost of medications. Please refer to case management for aid if possible- will also refer to our [facility] clinic to follow as an outpatient. There was question if the patient followed with [facility] for his medications as an outpatient. Patient stable from a cardiac standpoint to discharge. Close follow up in the cardiology office within 1 week of DC, will contact our scheduling team to make arrangements. Admission and Anticipated Discharge Date Admission Date: April 25, 2021 Supervising Physician Co-Signing Physician Notes Patient seen and examined with TATY Scruggs. Agree with findings and assessment as above. BP greatly improved from admission. For discharge today after repeat Covid test. Our office will call to arrange follow-up as an outpatient. Subjective Patient was seen and examined, chart, medications, labs and, telemetry reviewed. Tele: SR 80s I&O: -24.5 L Weight: 119.6 kg (04/25)--> 94.8 kg (05/03) Patient denies any acute complaints today. No neurologic deficits on exam. No shortness of breath. No tachy-palpitations. No arrhythmias on telemetry. No edema. Blood pressure and heart rate slowly trending towards better control Planning on repeat Covid test today then discharge. Review of Systems Review of Systems: All systems reviewed & are unremarkable except as noted in HPI & below Physical Exam Physical Exam: General: No acute distress. A+Ox3. HEENT: Normocephalic. Atraumatic. Conjunctiva and sclera clear. NECK: No carotid bruits. + JVD. Carotid upstrokes are brisk. Heart: RRR. S1 and S2 noted without murmur, rubs, gallops. Lungs: Rales throughout lung mullins, overall diminished Abdomen: Normal bowel sounds. Soft. Nontender. No masses or organomegaly. No abdominal bruits. Extremities: No edema. No clubbing or cyanosis. Pulses: radial=2/4, posterior tibial=2/4, dorsalis pedis = 2/4. NEURO: No focal deficits. PSYCH: Normal. Results & Data ([facility]) Vital Signs (Past 12 Hours) Vital Signs Temp Pulse Pulse Resp BP BP Pulse Ox 05/03/21 08:26 36.8 C 85 18 136/82 95 05/03/21 03:59 89 23 96 05/03/21 03:20 36.6 C 89 19 144/93 H 97 05/02/21 22:51 36.6 C 97 H 20 149/106 H 98 05/02/21 22:41 98 H 26 H 97 05/02/21 22:20 103 H Laboratory Results 05/03/21 05/03/21 05/02/21 Range/Units 07:29 06:49 20:07 Sodium 135 L (136-145) mmol/L Potassium 4.4 (3.5-5.1) mmol/L Chloride 107 (98-107) mmol/L Carbon Dioxide 23 (21-32) mmol/L Anion Gap 5 (3-11) BUN 14 (6-23) mg/dl Creatinine 1.01 (0.6-1.4) mg/dl Est Cr Clr Drug Dosing 103.8 ml/min Est GFR ( Amer) 98.0 ml/min Est GFR (Non-Af Amer) 84.5 ml/min BUN/Creatinine Ratio 13.9 (10-20) Glucose 94 (70-99(Fasting)) mg/dl POC Glucose 87 118 H (70-99) mg/dl Calcium 8.5 (8.5-10.1) mg/dl 05/02/21 05/02/21 Range/Units 16:12 11:27 Sodium (136-145) mmol/L Potassium (3.5-5.1) mmol/L Chloride (98-107) mmol/L Carbon Dioxide (21-32) mmol/L Anion Gap (3-11) BUN (6-23) mg/dl Creatinine (0.6-1.4) mg/dl Est Cr Clr Drug Dosing ml/min Est GFR ( Amer) ml/min Est GFR (Non-Af Amer) ml/min BUN/Creatinine Ratio (10-20) Glucose (70-99(Fasting)) mg/dl POC Glucose 103 H 94 (70-99) mg/dl Calcium (8.5-10.1) mg/dl
[2021-05-03] MEDS: INSULIN ASPART PER UNIT SC SCH ×4 (09:08→20:36)
--- NOTE | 2021-05-03 13:21 | Discharge Summary ---
Date of Service May 03, 2021 Discharge Exam General- No acute distress Head- atraumatic Eyes- PERRL, EOMI, ENT- oropharynx clear Neck- supple, no JVD Lungs- clear to auscultation Heart- regular rhythm; no murmur Abdomen- normal bowel sounds, soft, nontender Extremities- no calf tenderness Neuro- alert, oriented x 3; PERRL, EOMI; no facial palsy; no dysarthria Skin- warm & dry Discharge Data Allergies Allergy/AdvReac Type Severity Reaction Status Date / Time bee venom protein (honey bee) Allergy Unknown anaplyaxsis Verified 12/11/20 21:20 . Consultations 04/25/21 06:07 ED Decision to Admit Stat 04/25/21 08:37 Consult Cardiology Routine 05/01/21 08:30 Consult Neurology Routine Ordered Studies 04/25/21 04:14 US venous doppler LE BI Urgent 04/30/21 16:38 CT head/brain wo con Stat 04/30/21 17:40 MR brain wo con Routine 05/01/21 09:06 CT angio head wo/w Routine CT angio neck with con Routine Hospital Course (1) Nonischemic congestive cardiomyopathy: (2) HFrEF (heart failure with reduced ejection fraction): ASSESSMENT AND PLAN: This is a 51-year-old male who presents with worsening lower extremity edema. ACUTE ON CHRONIC SYSTOLIC AND DIASTOLIC CONGESTIVE HEART FAILURE: echocardiogram ejection fraction of 25%-30%. diuresing well--negative 26 L fluid balance Lasix IV given, changed to Lasix 40mg po daily Cardiology on board recommended: Entresto titrate to maximum dose, Spironolactone 25mg BID, Metoprolol 200 mg p.o. twice daily with an additional 50 mg dose added Continue Imdur 60 mg p.o. daily and Hydralazine 25mg po TID Continue to monitor closely COVID-19 EXPOSURE Notified by infection control committee that patient, while admitted to the hospitasl, was exposed to an individual who tested positive for COVID-19 Discussed with patient at the bedside, with Anna from infection control committee Recommendation is to obtain COVID-19 test today-negative and monitor closely for symptoms Patient without COVID-19 symptoms as of today Chest [id number] for pneumonia Patient requesting to remain in the hospital until second Covid test is negative Single room will be provided for the patient Patient very upset, reassured that we will guide him through this process His was updated over the phone by the infection control committee Will repeat COVID-19 test on Thursday Hx of stroke associated with congenital heart disease MRI brain showed 14 mm focus of hemosiderin deposition identified in the left alvarado radiata consistent with a subacute hemorrhage. CTA head/neck showed Redemonstration of left paramedian frontal lobe hypodensity, which is slightly less conspicuous than prior exam possibly representing evolutionary changes of ischemia/infarct.hemodynamically significant stenosis of the internal carotid artery at the supraclinoid region. The left anterior cerebral artery is supplied from the right via the HILARIO. The left MCA is possibly slightly hypoperfused. No focal neuro deficit on exam Neurology on board recommend to restart aspirin 81 mg for life Okay from neurology standpoint to start on DVT prophylaxis DIABETES Hold metformin. Insulin Sliding Scale HYPERTENSION As per above SLEEP APNEA: On CPAP at bedtime. HISTORY OF CEREBROVASCULAR ACCIDENT ASA 81mg po daily Deep venous thrombosis prophylaxis We will change Lovenox to heparin subcu twice daily DISPOSITION: Pending Anticipate discharge to home when medically stable Discharge Plan Discharge Items Patient Disposition: Home - Self-Care Reason For Visit: LEG SWELLING Discharge Diagnosis: ACUTE ON CHRONIC SYSTOLIC AND DIASTOLIC CONGESTIVE HEART FAILURE: COVID-19 EXPOSURE DIABETES HYPERTENSION SLEEP APNEA: HISTORY OF CEREBROVASCULAR ACCIDENT Condition on Discharge: Good Activity: Resume your previous activity Non-emergency contact: Primary Care Provider and Wrapper Operator Call non-emergency contact if: you have any medication questions Follow-up/Referrals: Simone Corcoran MD [Outside Practitioners] - (Date & Time 05/07/2021 2:40 PM Provider Simone Corcoran MD Department [facility] ) Diet: Carb Consistent or DM2 and Heart Healthy Addtl Attending Provider Instructions: Follow up with your primary care provider Dr. Corcoran on 05/07/2021 @2:40 PM at the [facility] Follow up with cardiology clinic in 1 week Follow up with neurology as needed Continue aspirin for life Check BMP in 1 week to monitor your electrolytes and renal function Continue practice social distance and to wear mask CHF Discharge Instructions Call your Primary Care doctor if any of the following symptoms or problems start or get worse: Shortness of breath or difficulty breathing Wake up at night short of breath Chest pain Cough Swelling of your hands, feet, or legs More fatigued or tired with your normal activity Palpitations - sudden fast heart beats WEIGHT Weigh yourself every morning after using the bathroom. Use the same scale. Wear the same amount of clothing. Write your weight down on a chart. Call your Primary Care doctor if you gain more than 2-3 pounds in 1-2 days. MEDICATIONS Use this discharge instruction sheet for medication instructions. Take your medications at the time your doctor ordered. Do not skip a dose of your medicines. If you miss a dose of medicine, take it as soon as possible, but DO NOT DOUBLE A DOSE. Read your medicine information when you get home. Know all of the side effects of your medicine. If in doubt, ask your pharmacist Call your Primary Care doctor's office if you have any side effects. Be sure all of your doctors know what medicine and herbs you take (including cold, flu, and herbal medicine). Take the following with you to your follow-up doctor appointments: Do not drink excessive alcohol, beer or wine. Pending Studies at Discharge: No Stand-Alone Forms: My [facility] [email or web address], Smoking Cessation Medications and DC Order Prescriptions: New hydralazine 25 mg Tablet 25 mg PO TID 30 Days Qty: 90 RF: 0 isosorbide mononitrate 60 mg Tablet Extended Release 24 Hr 60 mg PO QAM 30 Days Qty: 30 RF: 0 metoprolol succinate 50 mg Tablet Extended Release 24 Hr 50 mg PO 1200 Qty: 30 RF: 0 spironolactone 25 mg Tablet 25 mg PO BID 30 Days Qty: 60 RF: 0 furosemide 40 mg Tablet 40 mg PO QAM Qty: 30 RF: 0 Entresto 97-103 mg Tablet 1 tab PO BID 30 Days Qty: 60 RF: 0 potassium chloride 20 mEq Tablet,Er Particles/Crystals 40 meq PO DAILY 30 Days Qty: 60 RF: 0 Continued aspirin 81 mg Tablet,Delayed Release (Dr/Ec) 81 mg PO QAM 30 Days Qty: 30 RF: 0 metformin 500 mg tablet extended release 24 hr 500 mg PO BID Qty: 120 RF: 0 (DME) OneTouch Verio test strips Strip See Rx Instructions .Route Qty: 100 RF: 0 (DME) lancets [OneTouch Delica Lancets] 33 gauge misc See Rx Instructions .Route Qty: 100 RF: 0 Changed metoprolol succinate 100 mg tablet extended release 24 hr 200 mg PO BID 30 Days Qty: 120 RF: 0 Discharge Orders: Discharge Order (Routine); Ordered 05/03/21 Ordered By: Merrick Marie/Other Patient Handouts: Managing Type 2 Diabetes Admission Data Admit Date/Time: 04/25/21 06:40 Attending Provider: Merrick Powers Admit Provider: Abdelrahman Dunn Primary Care Provider: Jeet Chu Other Providers: Shane Blandon ; Augustin Lugo ; Sunny Paul ; Abdelrahman Dunn
[2021-05-03 13:31] LABS: Influenza A virus by PCR Negative (Neg); Influenza B virus by PCR Negative (Neg); RSV by PCR Negative (Neg)
[2021-05-03 13:43] LABS: SARS CoV2 RNA(COVID-19) InHosp POSITIVE (Negative)
[2021-05-03] MEDS ORDERED: BENZONATATE 100 MG CAPSULE PO PRN (20:43)
--- NOTE | 2021-05-03 22:24 | Hospitalist Progress Note ---
Date of Service May 03, 2021 Assessment & Plan (1) Nonischemic congestive cardiomyopathy: (2) HFrEF (heart failure with reduced ejection fraction): Plan: ASSESSMENT AND PLAN: This is a 51-year-old male who presents with worsening lower extremity edema. ACUTE ON CHRONIC SYSTOLIC AND DIASTOLIC CONGESTIVE HEART FAILURE: echocardiogram ejection fraction of 25%-30%. diuresing well--negative 26 L fluid balance Lasix IV given, changed to Lasix 40mg po daily Cardiology on board recommended: Entresto titrate to maximum dose, Spironolactone 25mg BID, Metoprolol 200 mg p.o. twice daily with an additional 50 mg dose added Continue Imdur 60 mg p.o. daily and Hydralazine 25mg po TID Okay from cardiology standpoint to discharge Follow-up with cardiology in 1 week COVID-19 EXPOSURE Notified by infection control committee that patient, while admitted to the [facility], was exposed to an individual who tested positive for COVID-19 Discussed with patient at the bedside, with Anna from infection control committee Recommendation is to obtain COVID-19 test (initial test) - negative and monitor closely for symptoms Patient was very upset, reassured that we will guide him through this process Patient without COVID-19 symptoms as of today Chest [id number] for pneumonia His repeat Covid 19 test today was positive Positive Covid 19 result discussed with patient and Patient very upset, reassured that we will guide him through this process would prefer him to stay in the hospital if he would be staying in a private room Spoke to infectious control that reached out to Dr. Art to accommodate patient to stay in a private room As per CDC guideline patient will be quarantine for 5 days since he does not have any symptom Hx of stroke associated with congenital heart disease MRI brain showed 14 mm focus of hemosiderin deposition identified in the left alvarado radiata consistent with a subacute hemorrhage. CTA head/neck showed Redemonstration of left paramedian frontal lobe hypodensity, which is slightly less conspicuous than prior exam possibly representing evolutionary changes of ischemia/infarct.hemodynamically significant stenosis of the internal carotid artery at the supraclinoid region. The left anterior cerebral artery is supplied from the right via the HILARIO. The left MCA is possibly slightly hypoperfused. No focal neuro deficit on exam Neurology on board recommend to restart aspirin 81 mg for life Okay from neurology standpoint to start on DVT prophylaxis DIABETES Hold metformin. Insulin Sliding Scale HYPERTENSION As per above SLEEP APNEA: On CPAP at bedtime. HISTORY OF CEREBROVASCULAR ACCIDENT ASA 81mg po daily Deep venous thrombosis prophylaxis We will change Lovenox to heparin subcu twice daily DISPOSITION: Positive Covid 19 tested Patient will remain in the hospital during the 5 days quarantine and if asymptomatic will discharge home Admission and Anticipated Discharge Date Admission Date: April 25, 2021 Subjective Patient was seen and examined for follow-up for CHF and exposure to COVID-19 Lying in bed with no acute distress watching movie He said that he is not having any symptom of COVID-19 He does have a dry cough on and off that has been going on for months His repeat Covid 19 test today was positive While I was there I made him call his that I can provided with update was not too happy about the positive covig test would prefer him to stay in the hospital if he would be staying in a private room Spoke to infectious control that reached out to Dr. Art to accommodate patient to stay in a private room As per CDC guideline patient will be quarantine for 5 days since he does not have any symptom If he remains asymptomatic after the 5-day quarantine, he will be able to off isolation but he will need to wear a mask Denies any chest pain, palpitation, dizziness, shortness of breath. Review of Systems Review of Systems: All systems reviewed & are unremarkable except as noted in Subjective Physical Exam Physical Exam: General- No acute distress Head- atraumatic Eyes- PERRL, EOMI, ENT- oropharynx clear Neck- supple, no JVD Lungs- clear to auscultation Heart- regular rhythm; no murmur Abdomen- normal bowel sounds, soft, nontender Extremities- no calf tenderness Neuro- alert, oriented x 3; PERRL, EOMI; no facial palsy; no dysarthria Skin- warm & dry Results & Data Results & Data ([facility]) Vital Signs (Past 12 Hours) Vital Signs Temp Pulse Pulse Resp BP BP Pulse Ox 05/03/21 20:16 37.0 C 90 18 125/84 98 05/03/21 16:54 36.8 C 86 18 131/88 98 05/03/21 13:30 36.5 C 89 84 16 127/82 144/93 H 98 05/03/21 12:00 36.5 C 84 16 127/82 98
[2021-05-04] MEDS: VALSARTAN/SACUBITRIL 103/97MG TAB PO SCH ×2 (08:19→19:50)
[2021-05-04] MEDS: ISOSORBIDE MONO EXTENDED REL 60 MG TABCR PO SCH (08:20)
[2021-05-04] MEDS: SPIRONOLACTONE 25 MG TAB PO SCH ×2 (08:20→19:50)
[2021-05-04] MEDS: ASPIRIN 81 MG ECTAB PO SCH (08:20)
[2021-05-04] MEDS: FUROSEMIDE 40 MG TAB PO SCH (08:20)
[2021-05-04] MEDS: METOPROLOL SUCC 50MG EXT REL TAB PO SCH ×3 (08:21→19:49)
[2021-05-04] MEDS: hydrALAZINE HCL 25 MG TAB PO SCH ×3 (08:21→19:49)
[2021-05-04] MEDS: HEPARIN SOD 5,000 UNIT/0.5 ML VIAL SQ SCH ×2 (08:21→19:47)
[2021-05-04] MEDS: INSULIN ASPART PER UNIT SC SCH ×4 (09:30→19:22)
[2021-05-04] MEDS: POTASSIUM CHLORIDE CRTAB 20 MEQ TABCR PO SCH (09:37)
[2021-05-04] MEDS: guaiFENesin SUGAR FREE 200 MG/10 ML UDC PO PRN (19:51)
--- NOTE | 2021-05-04 23:30 | Hospitalist Progress Note ---
Date of Service May 04, 2021 Assessment & Plan (1) Nonischemic congestive cardiomyopathy: (2) HFrEF (heart failure with reduced ejection fraction): Plan: ASSESSMENT AND PLAN: This is a 51-year-old male who presents with worsening lower extremity edema. ACUTE ON CHRONIC SYSTOLIC AND DIASTOLIC CONGESTIVE HEART FAILURE: echocardiogram ejection fraction of 25%-30%. diuresing well--negative 26 L fluid balance Lasix IV given, changed to Lasix 40mg po daily Cardiology on board recommended: Entresto titrate to maximum dose, Spironolactone 25mg BID, Metoprolol 200 mg p.o. twice daily with an additional 50 mg dose added Continue Imdur 60 mg p.o. daily and Hydralazine 25mg po TID Okay from cardiology standpoint to discharge Follow-up with cardiology in 1 week COVID-19 EXPOSURE Notified by infection control committee that patient, while admitted to the [facility], was exposed to an individual who tested positive for COVID-19 Discussed with patient at the bedside, with Anna from infection control committee Recommendation is to obtain COVID-19 test (initial test) - negative and monitor closely for symptoms Patient was very upset, reassured that we will guide him through this process Patient without COVID-19 symptoms as of today Chest [id number] for pneumonia His repeat Covid 19 test today was positive Positive Covid 19 result discussed with patient and Patient very upset, reassured that we will guide him through this process would prefer him to stay in the hospital if he would be staying in a private room Spoke to infectious control that reached out to Dr. Art to accommodate patient to stay in a private room As per CDC guideline patient will be quarantine for 5 days since he does not have any symptom Hx of stroke associated with congenital heart disease MRI brain showed 14 mm focus of hemosiderin deposition identified in the left alvarado radiata consistent with a subacute hemorrhage. CTA head/neck showed Redemonstration of left paramedian frontal lobe hypodensity, which is slightly less conspicuous than prior exam possibly representing evolutionary changes of ischemia/infarct.hemodynamically significant stenosis of the internal carotid artery at the supraclinoid region. The left anterior cerebral artery is supplied from the right via the HILARIO. The left MCA is possibly slightly hypoperfused. No focal neuro deficit on exam Neurology on board recommend to restart aspirin 81 mg for life Okay from neurology standpoint to start on DVT prophylaxis DIABETES Hold metformin. Insulin Sliding Scale HYPERTENSION As per above SLEEP APNEA: On CPAP at bedtime. HISTORY OF CEREBROVASCULAR ACCIDENT ASA 81mg po daily Deep venous thrombosis prophylaxis We will change Lovenox to heparin subcu twice daily DISPOSITION: Positive Covid 19 tested Patient will remain in the hospital during the 5 days quarantine and if asymptomatic will discharge home Admission and Anticipated Discharge Date Admission Date: April 25, 2021 Subjective Patient was seen and examined for follow-up for CHF and exposure to COVID-19 Lying in bed with no acute distress watching movie He said that he feels fine As per CDC guideline patient will be quarantine for 5 days since he does not have any symptom If he remains asymptomatic after the 5-day quarantine, he will be able to off isolation but he will need to wear a mask Denies any chest pain, palpitation, dizziness, shortness of breath. Review of Systems Review of Systems: All systems reviewed & are unremarkable except as noted in Subjective Physical Exam Physical Exam: General: No acute distress. A+Ox3. HEENT: Normocephalic. Atraumatic. Conjunctiva and sclera clear. NECK: No carotid bruits. + JVD. Carotid upstrokes are brisk. Heart: RRR. S1 and S2 noted without murmur, rubs, gallops. Lungs: Rales throughout lung mullins, overall diminished Abdomen: Normal bowel sounds. Soft. Nontender. No masses or organomegaly. No abdominal bruits. Extremities: No edema. No clubbing or cyanosis. Pulses: radial=2/4, posterior tibial=2/4, dorsalis pedis = 2/4. NEURO: No focal deficits. PSYCH: Normal. Results & Data Results & Data ([facility]) Vital Signs (Past 12 Hours) Vital Signs Temp Pulse Resp BP Pulse Ox 05/04/21 16:38 37.1 C 82 17 122/77 98 05/04/21 12:08 36.5 C 86 18 127/87 99
[2021-05-05] MEDS: INSULIN ASPART PER UNIT SC SCH ×4 (07:43→20:22)
[2021-05-05] MEDS: HEPARIN SOD 5,000 UNIT/0.5 ML VIAL SQ SCH ×2 (08:23→20:27)
[2021-05-05] MEDS: POTASSIUM CHLORIDE CRTAB 20 MEQ TABCR PO SCH (08:23)
[2021-05-05] MEDS: SPIRONOLACTONE 25 MG TAB PO SCH ×2 (08:24→20:25)
[2021-05-05] MEDS: FUROSEMIDE 40 MG TAB PO SCH (08:24)
[2021-05-05] MEDS: ISOSORBIDE MONO EXTENDED REL 60 MG TABCR PO SCH (08:24)
[2021-05-05] MEDS: VALSARTAN/SACUBITRIL 103/97MG TAB PO SCH ×2 (08:24→20:26)
[2021-05-05] MEDS: guaiFENesin SUGAR FREE 200 MG/10 ML UDC PO PRN (08:24)
[2021-05-05] MEDS: ASPIRIN 81 MG ECTAB PO SCH (08:24)
[2021-05-05] MEDS: hydrALAZINE HCL 25 MG TAB PO SCH ×3 (08:25→20:27)
[2021-05-05] MEDS: METOPROLOL SUCC 50MG EXT REL TAB PO SCH ×3 (08:25→20:27)
--- NOTE | 2021-05-05 17:53 | Hospitalist Progress Note ---
Date of Service May 05, 2021 Assessment & Plan (1) Nonischemic congestive cardiomyopathy: (2) HFrEF (heart failure with reduced ejection fraction): Plan: ASSESSMENT AND PLAN: This is a 51-year-old male who presents with worsening lower extremity edema. ACUTE ON CHRONIC SYSTOLIC AND DIASTOLIC CONGESTIVE HEART FAILURE: echocardiogram ejection fraction of 25%-30%. diuresing well--negative 26 L fluid balance Lasix IV given, changed to Lasix 40mg po daily Cardiology on board recommended: Entresto titrate to maximum dose, Spironolactone 25mg BID, Metoprolol 200 mg p.o. twice daily with an additional 50 mg dose added Continue Imdur 60 mg p.o. daily and Hydralazine 25mg po TID Okay from cardiology standpoint to discharge Follow-up with cardiology in 1 week COVID-19 EXPOSURE Notified by infection control committee that patient, while admitted to the [facility], was exposed to an individual who tested positive for COVID-19 Discussed with patient at the bedside, with Anna from infection control committee Recommendation is to obtain COVID-19 test (initial test) - negative and monitor closely for symptoms Patient was very upset, reassured that we will guide him through this process Patient without COVID-19 symptoms as of today Chest [id number] for pneumonia His repeat Covid 19 test today was positive Positive Covid 19 result discussed with patient and Patient very upset, reassured that we will guide him through this process would prefer him to stay in the hospital if he would be staying in a private room Spoke to infectious control that reached out to Dr. Art to accommodate patient to stay in a private room As per CDC guideline patient will be quarantine for 5 days since he does not have any symptom Hx of stroke associated with congenital heart disease MRI brain showed 14 mm focus of hemosiderin deposition identified in the left alvarado radiata consistent with a subacute hemorrhage. CTA head/neck showed Redemonstration of left paramedian frontal lobe hypodensity, which is slightly less conspicuous than prior exam possibly representing evolutionary changes of ischemia/infarct.hemodynamically significant stenosis of the internal carotid artery at the supraclinoid region. The left anterior cerebral artery is supplied from the right via the HILARIO. The left MCA is possibly slightly hypoperfused. No focal neuro deficit on exam Neurology on board recommend to restart aspirin 81 mg for life Okay from neurology standpoint to start on DVT prophylaxis DIABETES Hold metformin. Insulin Sliding Scale HYPERTENSION As per above SLEEP APNEA: On CPAP at bedtime. HISTORY OF CEREBROVASCULAR ACCIDENT ASA 81mg po daily Deep venous thrombosis prophylaxis On heparin subcu twice daily DISPOSITION: Positive COVID 19 tested Patient will remain in the hospital during the 5 days quarantine and if asymptomatic will discharge home Admission and Anticipated Discharge Date Admission Date: April 25, 2021 Subjective Patient was seen and examined for follow-up for CHF and exposure to COVID-19 Lying in bed with no acute distress watching movie He said that he feels fine Denies any chest pain, palpitation, dizziness, shortness of breath. Review of Systems Review of Systems: All systems reviewed & are unremarkable except as noted in Subjective Physical Exam Physical Exam: General: No acute distress. A+Ox3. HEENT: Normocephalic. Atraumatic. Conjunctiva and sclera clear. NECK: No carotid bruits. + JVD. Carotid upstrokes are brisk. Heart: RRR. S1 and S2 noted without murmur, rubs, gallops. Lungs: Rales throughout lung mullins, overall diminished Abdomen: Normal bowel sounds. Soft. Nontender. No masses or organomegaly. No abdominal bruits. Extremities: No edema. No clubbing or cyanosis. Pulses: radial=2/4, posterior tibial=2/4, dorsalis pedis = 2/4. NEURO: No focal deficits. PSYCH: Normal. Results & Data Results & Data ([facility]) Vital Signs (Past 12 Hours) Vital Signs Temp Pulse Resp BP Pulse Ox 05/05/21 16:31 36.7 C 81 19 129/88 99 05/05/21 07:41 36.7 C 77 18 147/103 H 99
--- NOTE | 2021-05-06 08:25 | Cardiology Progress Note ---
Date of Service May 06, 2021 Assessment & Plan (1) HFrEF (heart failure with reduced ejection fraction): (2) Nonischemic congestive cardiomyopathy: (3) HTN, goal below 130/80: Plan: Plan: 51-year-old male with nonischemic cardiomyopathy presenting with acute on chronic decompensated congestive heart failure right greater than left after lapse in guideline directed medical therapies. Echo reflecting reduced ejection fraction and moderate to severe mitral insufficiency. Patient improved substantially since admission from volume status- appears euvolemic on exam Entresto titrated to maximal dosing Currently on Metoprolol succinate 200 mg twice per day with an additional 50 mg at noon Spironolactone at 25 mg twice per day Continue hydralazine as ordered Continue furosemide 40 mg every morning Continue all cardiac medications as ordered at discharge. Patient notes difficulty with cost of medications. Please refer to case management for aid if possible- will also refer to our [facility] clinic to follow as an outpatient. Patient not currently following with [facility]- patient may be a good candidate for this service. Patient stable from a cardiac standpoint to discharge. Close follow up in the cardiology office within 1 week of DC, will contact our scheduling team to make arrangements. Admission and Anticipated Discharge Date Admission Date: April 25, 2021 Supervising Physician Co-Signing Physician Notes Patient seen and examined with TATY Scruggs. Agree with findings and assessment as above. Continue current medical regimen. [facility] once again discussed with the patient. Subjective Chart reviewed. Patient called on the telephone. Patient denies any acute complaints today. No shortness of breath. No tachy-palpitations. No arrhythmias on telemetry. No edema. Blood pressure and heart rate under good control. COVID symptoms- NONE Wore CPAP over night Not currently a patient with [facility]. Tele: NOT ON TELE/ Medical status Weight: 119.6 kg >>> 90.6 kg I&O: -22.9L Review of Systems Review of Systems: All systems reviewed & are unremarkable except as noted in HPI & below Physical Exam Physical Exam: Due to isolation for COVID-19, no in physical exam was completed. Results & Data ([facility]) Vital Signs (Past 12 Hours) Vital Signs Temp Pulse Pulse Pulse Resp BP BP 05/06/21 07:32 36.5 C 83 19 124/84 05/06/21 03:31 81 23 05/06/21 00:13 36.6 C 81 16 143/98 H 05/05/21 23:50 81 26 H Pulse Ox 05/06/21 07:32 99 05/06/21 03:31 96 05/06/21 00:13 100 05/05/21 23:50 98 Laboratory Results 05/06/21 05/05/21 05/05/21 Range/Units 07:30 20:20 16:28 POC Glucose 110 H 126 H 97 (70-99) mg/dl 05/05/21 Range/Units 11:31 POC Glucose 107 H (70-99) mg/dl
[2021-05-06] MEDS: guaiFENesin SUGAR FREE 200 MG/10 ML UDC PO PRN (09:21)
[2021-05-06] MEDS: POTASSIUM CHLORIDE CRTAB 20 MEQ TABCR PO SCH (09:21)
[2021-05-06] MEDS: ASPIRIN 81 MG ECTAB PO SCH (09:22)
[2021-05-06] MEDS: ISOSORBIDE MONO EXTENDED REL 60 MG TABCR PO SCH (09:22)
[2021-05-06] MEDS: METOPROLOL SUCC 50MG EXT REL TAB PO SCH ×3 (09:22→20:29)
[2021-05-06] MEDS: hydrALAZINE HCL 25 MG TAB PO SCH ×3 (09:22→20:30)
[2021-05-06] MEDS: VALSARTAN/SACUBITRIL 103/97MG TAB PO SCH ×2 (09:23→20:30)
[2021-05-06] MEDS: HEPARIN SOD 5,000 UNIT/0.5 ML VIAL SQ SCH ×2 (09:23→20:28)
[2021-05-06] MEDS: SPIRONOLACTONE 25 MG TAB PO SCH ×2 (09:23→20:30)
[2021-05-06] MEDS: FUROSEMIDE 40 MG TAB PO SCH (09:23)
[2021-05-06 09:29] LABS: BUN Creatinine Ratio 10.4 (10-20); Calcium 9.1 mg/dl (8.5-10.1); Creatinine Clr Calc Pharmacy 109.3 ml/min; Est GFR (African American) 104.2 ml/min; Est GFR (Non-African American) 89.9 ml/min; Potassium 4.3 mmol/L (3.5-5.1)
[2021-05-06] MEDS: INSULIN ASPART PER UNIT SC SCH ×4 (10:28→20:23)
--- NOTE | 2021-05-06 16:12 | Hospitalist Progress Note ---
Date of Service May 06, 2021 Assessment & Plan (1) Nonischemic congestive cardiomyopathy: (2) HFrEF (heart failure with reduced ejection fraction): Plan: ASSESSMENT AND PLAN: This is a 51-year-old male who presents with worsening lower extremity edema. ACUTE ON CHRONIC SYSTOLIC AND DIASTOLIC CONGESTIVE HEART FAILURE: echocardiogram ejection fraction of 25%-30%. diuresing well--negative 26 L fluid balance Lasix IV given, changed to Lasix 40mg po daily Cardiology on board recommended: Entresto titrate to maximum dose, Spironolactone 25mg BID, Metoprolol 200 mg p.o. twice daily with an additional 50 mg dose added Continue Imdur 60 mg p.o. daily and Hydralazine 25mg po TID Okay from cardiology standpoint to discharge Follow-up with cardiology in 1 week COVID-19 EXPOSURE Notified by infection control committee that patient, while admitted to the [facility], was exposed to an individual who tested positive for COVID-19 Discussed with patient at the bedside, with Anna from infection control committee Recommendation is to obtain COVID-19 test (initial test) - negative and monitor closely for symptoms Patient was very upset, reassured that we will guide him through this process Patient without COVID-19 symptoms as of today Chest [id number] for pneumonia His repeat Covid 19 test today was positive Positive Covid 19 result discussed with patient and Patient very upset, reassured that we will guide him through this process would prefer him to stay in the hospital if he would be staying in a private room Spoke to infectious control that reached out to Dr. Art to accommodate patient to stay in a private room As per CDC guideline patient will be quarantine for 5 days since he does not have any symptom Asymptomatic Hx of stroke associated with congenital heart disease MRI brain showed 14 mm focus of hemosiderin deposition identified in the left alvarado radiata consistent with a subacute hemorrhage. CTA head/neck showed Redemonstration of left paramedian frontal lobe hypodensity, which is slightly less conspicuous than prior exam possibly representing evolutionary changes of ischemia/infarct.hemodynamically significant stenosis of the internal carotid artery at the supraclinoid region. The left anterior cerebral artery is supplied from the right via the HILARIO. The left MCA is possibly slightly hypoperfused. No focal neuro deficit on exam Neurology on board recommend to restart aspirin 81 mg for life Okay from neurology standpoint to start on DVT prophylaxis DIABETES Hold metformin. Insulin Sliding Scale HYPERTENSION As per above SLEEP APNEA: On CPAP at bedtime. HISTORY OF CEREBROVASCULAR ACCIDENT ASA 81mg po daily Deep venous thrombosis prophylaxis On heparin subcu twice daily DISPOSITION: Positive COVID 19 tested Patient will remain in the hospital during the 5 days quarantine and if asymptomatic will discharge home Plan to discharge home tomorrow Admission and Anticipated Discharge Date Admission Date: April 25, 2021 Subjective Patient was seen and examined for follow-up for CHF and exposure to COVID-19 Lying in bed with no acute distress He said that he feels fine Denies any chest pain, palpitation, dizziness, shortness of breath. Review of Systems Review of Systems: All systems reviewed & are unremarkable except as noted in Subjective Physical Exam Physical Exam: General: No acute distress. A+Ox3. HEENT: Normocephalic. Atraumatic. Conjunctiva and sclera clear. NECK: No carotid bruits. + JVD. Carotid upstrokes are brisk. Heart: RRR. S1 and S2 noted without murmur, rubs, gallops. Lungs: Rales throughout lung mullins, overall diminished Abdomen: Normal bowel sounds. Soft. Nontender. No masses or organomegaly. No abdominal bruits. Extremities: No edema. No clubbing or cyanosis. Pulses: radial=2/4, posterior tibial=2/4, dorsalis pedis = 2/4. NEURO: No focal deficits. PSYCH: Normal. Results & Data Results & Data ([facility]) Vital Signs (Past 12 Hours) Vital Signs Temp Pulse Pulse Resp BP BP Pulse Ox 05/06/21 07:32 36.5 C 83 19 124/84 99 05/06/21 07:00 37.2 C 79 16 137/74 99
[2021-05-07] MEDS: ASPIRIN 81 MG ECTAB PO SCH (08:22)
[2021-05-07] MEDS: hydrALAZINE HCL 25 MG TAB PO SCH (08:22)
[2021-05-07] MEDS: FUROSEMIDE 40 MG TAB PO SCH (08:23)
[2021-05-07] MEDS: VALSARTAN/SACUBITRIL 103/97MG TAB PO SCH (08:23)
[2021-05-07] MEDS: SPIRONOLACTONE 25 MG TAB PO SCH (08:23)
[2021-05-07] MEDS: ISOSORBIDE MONO EXTENDED REL 60 MG TABCR PO SCH (08:23)
[2021-05-07] MEDS: HEPARIN SOD 5,000 UNIT/0.5 ML VIAL SQ SCH (08:24)
[2021-05-07] MEDS: METOPROLOL SUCC 50MG EXT REL TAB PO SCH ×2 (08:24→12:28)
[2021-05-07] MEDS: guaiFENesin SUGAR FREE 200 MG/10 ML UDC PO PRN (08:25)
[2021-05-07] MEDS: POTASSIUM CHLORIDE CRTAB 20 MEQ TABCR PO SCH (08:29)
[2021-05-07] MEDS: INSULIN ASPART PER UNIT SC SCH (09:37)
--- NOTE | 2021-05-07 11:57 | Discharge Summary ---
Date of Service May 07, 2021 Admission HPI Per Admitting Provider CHIEF COMPLAINT: Lower extremity edema. HISTORY OF PRESENT ILLNESS: This 51-year-old male with past medical history significant for type 2 diabetes, sleep apnea, hypertension, history of CVA, obesity, recent diagnosis of diastolic and systolic CHF with EF of 25%-30%. The patient, at the time of discharge, was placed on spironolactone/hydrochlorothiazide and Entresto. It seems that as outpatient, hydrochlorothiazide supposedly decreased to 12.5 mg p.o. daily, the patient was also placed on Lasix as needed, but the patient says currently he is only taking metformin and metoprolol succinate, not taking any other medications, and he is coming in because of increasing lower extremity edema. Denies any shortness of breath, no chest pain, no cough, no fevers, no nausea, no vomiting, no headache, no blurred vision, no earache, no runny nose, no sore throat. He is ambulating okay. Currently, resting comfortably and hemodynamically stable. Admission Exam Per Admitting Provider GENERAL: The patient is obese, not in acute distress. VITAL SIGNS: Temperature 36.8, pulse 110, respiratory rate 20, blood pressure 177/112, oxygen 99% on room air. HEENT: Pupils equal, round and reactive to light. Oral mucosa moist. NECK: No JVD, no neck masses. CARDIOVASCULAR: S1 and S2 heard. Tachycardia. No murmurs. RESPIRATORY SYSTEM: Normal AP diameter. No accessory muscle use. No wheezing, no crackles. ABDOMEN: Soft, bowel sounds present, nontender, no distention. CENTRAL NERVOUS SYSTEM: Cranial nerves II-XII grossly intact, nonfocal. EXTREMITIES: Bilateral lower extremity +2 edema present, no erythema seen. Principal Diagnosis ACUTE ON CHRONIC SYSTOLIC AND DIASTOLIC CONGESTIVE HEART FAILURE: COVID-19 EXPOSURE DIABETES HYPERTENSION SLEEP APNEA: HISTORY OF CEREBROVASCULAR ACCIDENT Discharge Exam General: No acute distress. A+Ox3. HEENT: Normocephalic. Atraumatic. Conjunctiva and sclera clear. NECK: No carotid bruits. + JVD. Carotid upstrokes are brisk. Heart: RRR. S1 and S2 noted without murmur, rubs, gallops. Lungs: Rales throughout lung mullins, overall diminished Abdomen: Normal bowel sounds. Soft. Nontender. No masses or organomegaly. No abdominal bruits. Extremities: No edema. No clubbing or cyanosis. Pulses: radial=2/4, posterior tibial=2/4, dorsalis pedis = 2/4. NEURO: No focal deficits. PSYCH: Normal. Discharge Data Allergies Allergy/AdvReac Type Severity Reaction Status Date / Time bee venom protein (honey bee) Allergy Unknown anaplyaxsis Verified 12/11/20 21:20 . Consultations 04/25/21 06:07 ED Decision to Admit Stat 04/25/21 08:37 Consult Cardiology Routine 05/01/21 08:[address] angio head wo/w, CT angio neck with con CLINICAL HISTORY: subacute hemorrhage TECHNIQUE: Contiguous axial CT images of the head were acquired from the base of the skull to the vertex without intravenous contrast administration. CT angiography of the head and neck was performed following intravenous administration of iodinated contrast. Coronal and sagittal MIPS were obtained from the axial data set and were submitted for review. Automated dose lowering techniques and/or adjustment according to patient size were utilized for this examination. All measurements were calculated based on NASCET criteria. Comparison: Comparison is made to CT head 04/30/2021 FINDINGS: CT head: Redemonstration of left parafalcine hypodensity, somewhat less conspicuous than on the prior exam. Moderate right and small left pleural effusions are seen. CTA Neck: A 3 vessel aortic arch is shown. There is no significant atherosclerotic plaque in the aortic arch or the origins of the innominate, left common carotid, and left subclavian arteries. There is hemodynamically significant stenosis of the left internal carotid artery just prior to its entry into the carotid canal. The left vertebral artery is dominant. CTA Head: The anterior and posterior cerebral circulations are patent. There is severe stenosis of the supraclinoid portion of the left internal carotid artery. The left anterior cerebral artery appears to be supplied anterior communicating artery, the A1 segment on the left is not clearly seen. The left MCA is patent to the M3 segments with possibly minimally decreased flow compared to the right. The right vertebral artery terminates in PICA. Atherosclerotic disease is noted. IMPRESSION: 1. Redemonstration of left paramedian frontal lobe hypodensity, which is slightly less conspicuous than prior exam possibly representing evolutionary changes of ischemia/infarct. Chronic white matter changes are seen in the anterior watershed zone on the left likely secondary to chronic ischemia 2. There is hemodynamically significant stenosis of the internal carotid artery at the supraclinoid region. The left anterior cerebral artery is supplied from the right via the HILARIO. The left MCA is possibly slightly hypoperfused. The posterior circulation is intact. 3. There is also a focus of hemodynamically significant stenosis of the left internal carotid artery just prior to entering the carotid canal. 4. Moderate right and small left pleural effusion. Assessment of stenosis of the internal carotid arteries is based on NASCET criteria. ACT 112: Negative or not required by law. Electronically signed by: Devyn Dela Cruz M.D. 05/01/2021 11:14 AM Dictated:05/01/21 1050 Transcribed: 05/01/[address] angio head wo/w, CT angio neck with con CLINICAL HISTORY: subacute hemorrhage TECHNIQUE: Contiguous axial CT images of the head were acquired from the base of the skull to the vertex without intravenous contrast administration. CT angiography of the head and neck was performed following intravenous administration of iodinated contrast. Coronal and sagittal MIPS were obtained from the axial data set and were submitted for review. Automated dose lowering techniques and/or adjustment according to patient size were utilized for this examination. All measurements were calculated based on NASCET criteria. Comparison: Comparison is made to CT head 04/30/2021 FINDINGS: CT head: Redemonstration of left parafalcine hypodensity, somewhat less conspicuous than on the prior exam. Moderate right and small left pleural effusions are seen. CTA Neck: A 3 vessel aortic arch is shown. There is no significant atherosclerotic plaque in the aortic arch or the origins of the innominate, left common carotid, and left subclavian arteries. There is hemodynamically significant stenosis of the left internal carotid artery just prior to its entry into the carotid canal. The left vertebral artery is dominant. CTA Head: The anterior and posterior cerebral circulations are patent. There is severe stenosis of the supraclinoid portion of the left internal carotid artery. The left anterior cerebral artery appears to be supplied anterior communicating artery, the A1 segment on the left is not clearly seen. The left MCA is patent to the M3 segments with possibly minimally decreased flow compared to the right. The right vertebral artery terminates in PICA. Atherosclerotic disease is noted. IMPRESSION: 1. Redemonstration of left paramedian frontal lobe hypodensity, which is slightly less conspicuous than prior exam possibly representing evolutionary changes of ischemia/infarct. Chronic white matter changes are seen in the anterior watershed zone on the left likely secondary to chronic ischemia 2. There is hemodynamically significant stenosis of the internal carotid artery at the supraclinoid region. The left anterior cerebral artery is supplied from the right via the HILARIO. The left MCA is possibly slightly hypoperfused. The posterior circulation is intact. 3. There is also a focus of hemodynamically significant stenosis of the left internal carotid artery just prior to entering the carotid canal. 4. Moderate right and small left pleural effusion. Assessment of stenosis of the internal carotid arteries is based on NASCET criteria. ACT 112: Negative or not required by law. Electronically signed by: Devyn Dela Cruz M.D. 05/01/2021 11:14 AM Dictated:05/01/21 1050 Transcribed: 05/01/21 1101 MRI OF THE BRAIN WITHOUT IV CONTRAST CLINICAL HISTORY: Strokelike symptoms. Difficulty with word finding. COMPARISON STUDY: CT of the brain dated 04/30/2021. TECHNIQUE: MRI of the brain was performed utilizing various T1 and T2-weighted sequences in the axial, sagittal, and coronal planes. IV contrast was not administered for this examination. FINDINGS: Brain parenchyma: There is age-related involutional change noting mild subcortical and periventricular microangiopathic disease. Foci of left frontal and left parietal encephalomalacia are consistent with remote infarcts. There is wallerian degeneration within the left aspect of the carl. A 14 mm focus of hemosiderin deposition in the left alvarado radiata is seen on gradient image #16. No midline shift is seen. There is no restricted diffusion atypical for acute ischemia. Patel-white matter differentiation is preserved. No extra-axial fluid collection is seen. The cerebellar tonsils are normal in configuration. Ventricles, sulci, and cisterns: Prominent secondary to involutional change. The re is mild ex vacuo dilatation of the left lateral ventricle. Pituitary and sella: Unremarkable. Intracranial vasculature: Left internal carotid artery flow-void is diminished at the skull base. The remaining flow voids are maintained. Orbits: The bony orbits are grossly intact. Orbital contents are normal in appearance. Sinuses and mastoids: There is trace mucosal thickening in the left maxillary antrum. The remaining paranasal sinuses and mastoid air cells are clear. Calvarium: Unremarkable. Cervical cord: Partially visualized cervical spinal cord is normal in morphology and signal intensity. IMPRESSION: 1. There is a 14 mm focus of hemosiderin deposition identified in the left alvarado radiata consistent with a subacute hemorrhage. 2. No additional foci of hemorrhage are identified. 3. There is no mass effect or evidence of acute ischemia. ACT 112: Negative or not required by law. Electronically signed by: Scar Martines M.D. 05/01/2021 8:09 AM Dictated:05/01/21 0726 Transcribed: 05/01/[address] head/brain wo con CLINICAL HISTORY: 51 years-old Male with possible aphasia; r/o cva. Acute strokelike symptoms TECHNIQUE: Multiple axial CT images of the head were obtained without contrast. A dose lowering technique was utilized adhering to the principles of ALARA. CT DOSE: 537.48 mGy.cm COMPARISON: Head CT 02/06/2018 FINDINGS: No acute intracranial hemorrhage, midline shift, intracranial mass, hydrocephalus, territorial ischemia or abnormal extra-axial collection. Age- related involutional changes with chronic microvascular ischemic disease. Multifocal areas of encephalomalacia are noted throughout the left cerebral hemisphere from chronic infarcts, notably involving the left frontal and parietal lobes and left basal ganglia. Ex vacuo ventriculomegaly of the left lateral ventricle. Low-lying cerebellar tonsils. Ill-defined 1.6 cm area of decreased attenuation involves the medial left frontal lobe on image 17 series 2 in the anterior cerebral artery distribution which is new from prior. The calvarium is intact. The paranasal sinuses, mastoid air cells, and middle ear cavities are clear. IMPRESSION: 1. No acute intracranial hemorrhage, midline shift or acute territorial infarct. 2. Ill-defined area of decreased attenuation within the medial left frontal lobe within the anterior cerebral artery territory is new from prior study and is suspicious for an age-indeterminate infarct. 3. 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 ACT 112: Negative or not required by law. The above report was generated using voice recognition software. It may contain grammatical, syntax or spelling errors. Electronically signed by: Geoff Adame M.D. 04/30/2021 5:31 PM Dictated:04/30/211725 Transcribed: 04/30/211725 SINGLE VIEW CHEST CLINICAL HISTORY: Follow-up congestive failure. FINDINGS: An AP, portable, upright chest radiograph is compared to study dated 04/25/2021. Correlation is made with chest CT dated 12/11/2020. The heart is enlarged. There is mild pulmonary vascular congestion. There are small pleural effusions with dependent atelectasis. No pneumothorax is seen. The bony thorax is grossly intact. IMPRESSION: 1. Cardiomegaly with mild pulmonary vascular congestion. This appears modestly improved as compared to 04/25/2021. 2. Small pleural effusions with dependent atelectasis. ACT 112: Negative or not required by law. Electronically signed by: Scar Martines M.D. 04/29/2021 11:50 AM Dictated:04/29/21 1149 Transcribed: 04/29/21 1149 XR chest 1V portable CLINICAL HISTORY: Weakness. Leg swelling. COMPARISON STUDY: Chest CT December 11, 2020 chest radiograph December 13, 2020. FINDINGS: There is no pneumothorax. Small bilateral pleural effusions are noted. The larger of the cardiac silhouette is unchanged. 2 cm nodular density within the right midlung likely reflects fissural fluid. There is mild pulmonary edema. IMPRESSION: 1. Mild pulmonary edema with small bilateral pleural effusions. 2. Stable enlargement of the cardiac silhouette. 3. 2 cm nodular opacity within the right midlung which likely reflects fissural fluid. Radiographic follow-up to ensure resolution is recommended. ACT 112: Negative or not required by law. Electronically signed by: Marlon Stein M.D. 04/25/2021 6:39 AM Dictated:04/25/21 0636 Transcribed: 04/25/21 0636 BILATERAL LOWER EXTREMITY VENOUS DOPPLER CLINICAL HISTORY: Lower extremity swelling. COMPARISON STUDY: No previous studies for comparison. TECHNIQUE: Sonography of the deep venous system of the bilateral lower extremities was performed. Compression and augmentation were evaluated. FINDINGS: This exam is compromised by suboptimal penetration. Lower extremity edema. However, no deep venous thrombus identified within either lower extremity. Prominent bilateral inguinal lymph nodes are likely benign. IMPRESSION: Technically difficult exam given extensive bilateral lower extremity edema but no evidence of deep venous thrombus within the bilateral lower extremities. ACT 112: Negative or not required by law. Electronically signed by: Marlon Stein M.D. 04/25/2021 6:49 AM Dictated:04/25/21 0648 Transcribed: 04/25/21 0648 Ordered Studies 04/25/21 04:14 US venous doppler LE BI Urgent 04/30/21 16:38 CT head/brain wo con Stat 04/30/21 17:40 MR brain wo con Routine 05/01/21 09:06 CT angio head wo/w Routine CT angio neck with con Routine Hospital Course (1) Nonischemic congestive cardiomyopathy: (2) HFrEF (heart failure with reduced ejection fraction): ASSESSMENT AND PLAN: This is a 51-year-old male who presents with worsening lower extremity edema. ACUTE ON CHRONIC SYSTOLIC AND DIASTOLIC CONGESTIVE HEART FAILURE: echocardiogram ejection fraction of 25%-30%. diuresing well--negative 26 L fluid balance Lasix IV given, changed to Lasix 40mg po daily Cardiology on board recommended: Entresto titrate to maximum dose, Spironolactone 25mg BID, Metoprolol 200 mg p.o. twice daily with an additional 50 mg dose added Continue Imdur 60 mg p.o. daily and Hydralazine 25mg po TID Okay from cardiology standpoint to discharge Follow-up with cardiology in 1 week COVID-19 EXPOSURE Notified by infection control committee that patient, while admitted to the hospitas, was exposed to an individual who tested positive for COVID-19 Discussed with patient at the bedside, with Anna from infection control committee Recommendation is to obtain COVID-19 test (initial test) - negative and monitor closely for symptoms Patient was very upset, reassured that we will guide him through this process Patient without COVID-19 symptoms as of today Chest [id number] for pneumonia His repeat Covid 19 test today was positive Positive Covid 19 result discussed with patient and Patient very upset, reassured that we will guide him through this process would prefer him to stay in the hospital if he would be staying in a private room Spoke to infectious control that reached out to Dr. Art to accommodate patient to stay in a private room As per CDC guideline patient will be quarantine for 5 days since he does not have any symptom Asymptomatic Hx of stroke associated with congenital heart disease MRI brain showed 14 mm focus of hemosiderin deposition identified in the left alvarado radiata consistent with a subacute hemorrhage. CTA head/neck showed Redemonstration of left paramedian frontal lobe hypodensity, which is slightly less conspicuous than prior exam possibly representing evolutionary changes of ischemia/infarct.hemodynamically significant stenosis of the internal carotid artery at the supraclinoid region. The left anterior cerebral artery is supplied from the right via the HILARIO. The left MCA is possibly slightly hypoperfused. No focal neuro deficit on exam Neurology on board recommend to restart aspirin 81 mg for life Okay from neurology standpoint to start on DVT prophylaxis DIABETES Hold metformin. Insulin Sliding Scale HYPERTENSION As per above SLEEP APNEA: On CPAP at bedtime. HISTORY OF CEREBROVASCULAR ACCIDENT ASA 81mg po daily Deep venous thrombosis prophylaxis On heparin subcu twice daily DISPOSITION: Positive COVID 19 tested Patient will remain in the hospital during the 5 days quarantine and if asymptomatic will discharge home Plan to discharge home tomorrow Total Time Total Time Spent Total Time Spent (In Minutes): 35 minutes Discharge Plan Discharge Items Patient Disposition: Home - Self-Care Reason For Visit: LEG SWELLING Discharge Diagnosis: ACUTE ON CHRONIC SYSTOLIC AND DIASTOLIC CONGESTIVE HEART FAILURE: COVID-19 EXPOSURE DIABETES HYPERTENSION SLEEP APNEA: HISTORY OF CEREBROVASCULAR ACCIDENT Condition on Discharge: Good Activity: Resume your previous activity Non-emergency contact: Primary Care Provider and [facility] [facility] Call non-emergency contact if: you have any medication questions Follow-up/Referrals: Simone Corcoran MD [Outside Practitioners] - (Date & Time 05/14/2021 2:40 PM Provider Simone Corcoran MD Department [facility] PLEASE NOTE THAT THIS IS A TELEHEALTH VIDEO APPOINTMENT. PLEASE FOLLOW THE INSTRUCTIONS PROVIDED IN YOUR EMAIL. IF YOU HAVE ANY QUESTIONS REGARDING THIS APPOINTMENT, PLEASE CALL ) Diet: Carb Consistent or DM2 and Heart Healthy Addtl Attending Provider Instructions: Follow up with your primary care provider Dr. Corcoran on 05/14/2021 @2:40 PM at the [facility] PLEASE NOTE THAT THIS IS A TELEHEALTH VIDEO APPOINTMENT. PLEASE FOLLOW THE INSTRUCTIONS PROVIDED IN YOUR EMAIL. IF YOU HAVE ANY QUESTIONS REGARDING THIS APPOINTMENT, PLEASE CALL Follow up with cardiology clinic in 1 week Follow up with neurology as needed Continue aspirin for life Check BMP in 1-2 week to monitor your electrolytes and renal function Continue practice social distance and to wear mask while in the house for about 1 week CHF Discharge Instructions Call your Primary Care doctor if any of the following symptoms or problems start or get worse: Shortness of breath or difficulty breathing Wake up at night short of breath Chest pain Cough Swelling of your hands, feet, or legs More fatigued or tired with your normal activity Palpitations - sudden fast heart beats WEIGHT Weigh yourself every morning after using the bathroom. Use the same scale. Wear the same amount of clothing. Write your weight down on a chart. Call your Primary Care doctor if you gain more than 2-3 pounds in 1-2 days. MEDICATIONS Use this discharge instruction sheet for medication instructions. Take your medications at the time your doctor ordered. Do not skip a dose of your medicines. If you miss a dose of medicine, take it as soon as possible, but DO NOT DOUBLE A DOSE. Read your medicine information when you get home. Know all of the side effects of your medicine. If in doubt, ask your pharmacist Call your Primary Care doctor's office if you have any side effects. Be sure all of your doctors know what medicine and herbs you take (including cold, flu, and herbal medicine). Take the following with you to your follow-up doctor appointments: Do not drink excessive alcohol, beer or wine. Home Isolation COVID-19 Instructions The following information about Home Isolation is from the CDC Website: https://www.cdc.gov/coronavirus/2019-ncov/hcp/gxdkzaak-ecirfon-rnqyoq.html Stay home except to get medical care People who are mildly ill with COVID-19 are able to isolate at home during their illness. You should restrict activities outside your home, except for getting medical care. Do not go to work, school, or public areas. Avoid using public transportation, ride-sharing, or taxis. Separate yourself from other people and animals in your home People: As much as possible, you should stay in a specific room and away from other people in your home. Also, you should use a separate bathroom, if available. Animals: You should restrict contact with pets and other animals while you are sick with COVID-19, just like you would around other people. Although there have not been reports of pets or other animals becoming sick with COVID-19, it is still recommended that people sick with COVID-19 limit contact with animals until more information is known about the virus. When possible, have another member of your household care for your animals while you are sick. If you are sick with COVID-19, avoid contact with your pet, including petting, snuggling, being kissed or licked, and sharing food. If you must care for your pet or be around animals while you are sick, wash your hands before and after you interact with pets and wear a face mask. Call ahead before visiting your doctor If you have a medical appointment, call the healthcare provider and tell them that you have or may have COVID-19. This will help the healthcare providers office take steps to keep other people from getting infected or exposed. Wear a face mask You should wear a face mask when you are around other people (e.g., sharing a room or vehicle) or pets and before you enter a healthcare providers office. If you are not able to wear a face mask (for example, because it causes trouble breathing), then people who live with you should not stay in the same room with you, or they should wear a face mask if they enter your room. Cover your coughs and sneezes Cover your mouth and nose with a tissue when you cough or sneeze. Throw used tissues in a lined trash can. Immediately wash your hands with soap and water for at least 20 seconds or, if soap and water are not available, clean your hands with an alcohol-based hand information and data architect analyst that contains at least 60% alcohol. Clean your hands often Wash your hands often with soap and water for at least 20 seconds, especially after blowing your nose, coughing, or sneezing; going to the bathroom; and before eating or preparing food. If soap and water are not readily available, use an alcohol-based hand information and data architect analyst with at least 60% alcohol, covering all surfaces of your hands and rubbing them together until they feel dry. Soap and water are the best option if hands are visibly dirty. Avoid touching your eyes, nose, and mouth with unwashed hands. Avoid sharing personal household items You should not share dishes, drinking glasses, cups, eating utensils, towels, or bedding with other people or pets in your home. After using these items, they should be washed thoroughly with soap and water. Clean all high-touch surfaces everyday High touch surfaces include counters, tabletops, doorknobs, bathroom fixtures, toilets, phones, keyboards, tablets, and bedside tables. Also, clean any surfaces that may have blood, stool, or body fluids on them. Use a household cleaning spray or wipe, according to the label instructions. Labels contain instructions for safe and effective use of the cleaning product including precautions you should take when applying the product, such as wearing gloves and making sure you have good ventilation during use of the product. Monitor your symptoms Seek prompt medical attention if your illness is worsening (e.g., difficulty breathing).Beforeseeking care, call your healthcare provider and tell them that you have, or are being evaluated for, COVID-19. Put on a face mask before you enter the facility. These steps will help the healthcare providers office to keep other people in the office or waiting room from getting infected or exposed. Ask your healthcare provider to call the local or state health department. Persons who are placed under active monitoring or facilitated self- monitoring should follow instructions provided by their local health department or occupational health professionals, as appropriate. When working with your local health department check their available hours. If you have a medical emergency and need to call 911, notify the dispatch personnel that you have, or are being evaluated for COVID-19. If possible, put on a face mask before emergency medical services arrive. Discontinuing home isolation Patients with confirmed COVID-19 should remain under home isolation precautions until the risk of secondary transmission to others is thought to be low. The decision to discontinue home isolation precautions should be made on a [id number] basis, in consultation with healthcare providers and state and local health departments. Coronavirus disease 2019 (COVID-19) is a virus that causes a respiratory illness. It is caused by a coronavirus called 2019 novel coronavirus (2019- nCoV). There are many types of coronavirus. Coronaviruses are a very common cause of bronchitis. They may sometimes cause lung infection(pneumonia). Symptoms can range from mild to severe respiratory illness. These viruses are also foundin some animals. COVID-19 was first found in people in [facility], in late 2019. In 2020, several cases of COVID-19 have been confirmed in the [place] Public health officials are working to find the source. How the virus spreads is not yet fully known. It may be spread through droplets of fluid that a person coughs or sneezes into the air. It may be spread if you touch a surface with virus on it, such as a handle or object, and then touch your mouth. What are the symptoms of COVID-19? Some people have no symptoms or mild symptoms. Symptoms may appear 2 to 14 days after contact with the virus. Symptoms can include: Fever Coughing Trouble breathing What are possible complications from COVID-19? In many cases, this virus can cause infection (pneumonia) in both lungs. In some cases, this can cause . How is COVID-19 diagnosed? Your healthcare provider will ask about your symptoms. He or she will also ask about your recent travel and contact with sick people. Testing for the virus is only done through the CDC. If yourhealthcare provider thinks you may have COVID- 19, he or she will work with your local health department and the CDC on testing. Follow all instructions from your healthcare provider. COVID-19 is dara gnosed by: Nasal and throat swab. A cotton-tipped swab is wiped inside your nose or throat. This is done to check for viruses in your nasal mucus. Sputum culture. A small sample of mucus coughed from your lungs (sputum) is collected if you have a cough. It is checked for the virus. How is COVID-19 treated? There is currently no medicine to treat the virus. Treatment is done to help your body while it fights the virus. This is known as supportive care. Supportive care may include: Pain medicine. These include acetaminophen and ibuprofen. They are used to help ease pain and reduce fever. Bed rest. This helps your body fight the illness. For severe illness, you may need to stay in the hospital. Care during severe illness may include: IV (intravenous) fluids.These are given through a vein to help keep your body hydrated. Oxygen. Supplemental oxygen or ventilation with a breathing machine (ventilator) may be given. This is done to keep enough oxygen in your body. Are you at risk for COVID-19? If youve been to a place where people have been sick with this virus, you are at risk for infection. You are at risk if you: Recently traveled to an affected area Had contact with a sick person who recently traveled to this area Had contact with a person who was diagnosed with COVID-19 How can COVID-19 be prevented? There is no vaccine yet. The best prevention is to not have contact with the virus. The CDC advises that people should not travel to areas where there are COVID-19 outbreaks right now for any reason that is not urgent. To help prevent spreading the infection, wash your hands often, or use an alcohol-basedhand information and data architect analyst. If you are in an area with COVID-19: Wash your hands often. Or use an alcohol-based hand information and data architect analyst often. Only touch your eyes, nose, or mouth with clean hands. Dont have contact with people who are sick. Follow local instructions about being in public. For example, you may be told to not use public transport for a period of time. Stay away from markets that have live or animals. Wash your hands after touching any animals. Don't touch animals that may be sick. Dont share eating or drinking tools with sick people. Dont kiss someone who is sick. Clean surfaces often with disinfectant. If you were in an area with COVID-19 in the last 14 days: Call your healthcare provider. He or she can talk with local health staff to see what action may be needed. Follow all instructions from your provider. Take your temperature every morning and evening for at least 14 days. This is to check for fever. Keep a record of the readings. Keep watch for symptoms of the virus. Tell your provider right away if you have symptoms. If you were in an area with COVID-19 and have a fever or other symptoms: Dont panic. Keep in mind that other illnesses can cause similar symptoms. Stay away from work, school, and public places. Limit physical contact with family members. Don't kiss anyone or share eating or drinking utensils. Clean surfaces you touch with disinfectant. This is to help prevent the virus from spreading. Call your healthcare provider. Explain that you have been exposed to COVID-19 and have symptoms. Do this before going to any hospital. Wait for instructions. Keep in mind that healthcare staff may wear protective equipment such as masks, gowns, gloves, and eye protection. You may be put in a separate room. This is to prevent the possible virus from spreading. Tell the healthcare staff about recent travel. This includes local travel on public transport. Staff may need to find other people you have been in contact with. Follow all instructions the healthcare staff give you. If you have been diagnosed with COVID-19 Follow all instructions from your healthcare provider. Dont leave your home, except to get medical care. Call your healthcare providers office before going. They can prepare and give you instructions. This will help prevent the virus from spreading. Dont go to work, school, or public areas. Dont use public transport or taxis. Stay away from other people in your home. Have them wear face masks around you. Dont share household items or food. Wear a face mask if you can. This includes at home or in a medical facility. Cover your face with a tissue when you cough or sneeze. Throw the tissue away. Wash your hands. Wash your hands often. Caregivers should: Follow all instructions from healthcare staff. Wear a face mask and protective clothing as advised. Wash hands often. Keep track of the sick persons symptoms. Clean surfaces, fabrics, and laundry thoroughly. Keep other people away from the sick person. When to call your healthcare provider Call your healthcare provider: If youve recently traveled and have symptoms If you have been diagnosed with COVID-19 and your symptoms are worse To learn more To find out more about COVID-19, visit the CDC website at www.cdc.gov/coronavirus/2019-ncov/index.html. [employer]. [address] [place] [address]. All rights reserved. This information is not intended as a substitute for professional medical care. Always follow your healthcare professional's instructions. This information has been adapted from [employer] Pending Studies at Discharge: No Stand-Alone Forms: [employer] [facility] [employer], Smoking Cessation Medications and DC Order Prescriptions: New hydralazine 25 mg Tablet 25 mg PO TID 30 Days Qty: 90 RF: 0 isosorbide mononitrate 60 mg Tablet Extended Release 24 Hr 60 mg PO QAM 30 Days Qty: 30 RF: 0 metoprolol succinate 50 mg Tablet Extended Release 24 Hr 50 mg PO 1200 Qty: 30 RF: 0 spironolactone 25 mg Tablet 25 mg PO BID 30 Days Qty: 60 RF: 0 furosemide 40 mg Tablet 40 mg PO QAM Qty: 30 RF: 0 Entresto 97-103 mg Tablet 1 tab PO BID 30 Days Qty: 60 RF: 0 potassium chloride 20 mEq Tablet,Er Particles/Crystals 40 meq PO DAILY 30 Days Qty: 60 RF: 0 Continued aspirin 81 mg Tablet,Delayed Release (Dr/Ec) 81 mg PO QAM 30 Days Qty: 30 RF: 0 metformin 500 mg tablet extended release 24 hr 500 mg PO BID Qty: 120 RF: 0 (DME) OneTouch Verio test strips Strip See Rx Instructions .Route Qty: 100 RF: 0 (DME) lancets [OneTouch Delica Lancets] 33 gauge misc See Rx Instructions .Route Qty: 100 RF: 0 Changed metoprolol succinate 100 mg tablet extended release 24 hr 200 mg PO BID 30 Days Qty: 120 RF: 0 Discharge Orders: Discharge Order (Routine); Ordered 05/07/21 Ordered By: Merrick Marie/Other Patient Handouts: Managing Type 2 Diabetes Admission Data Admit Date/Time: 04/25/21 06:40 Attending Provider: Merrick Powers Admit Provider: Abdelrahman Dunn Primary Care Provider: Jeet Chu Other Providers: Augustin Lugo ; Abdelrahman Dunn ; Shane Blandon ; Sunny Paul Other Interventions: Discharge Summary Assessment (RN) Last Done: 05/07/21 11:51
== END 2021-05-07 12:28 | disposition home or self-care (01) | DRG 291 ==
LOC: ED 03:56 → SUATTDRO 06:40 → EDINP 06:40 → 2S 09:08
DX: Z79.82 Long term (current) use of aspirin; I50.43 Acute on chronic combined systolic (congestive) and diastolic (congestive) heart failure; I11.0 Hypertensive heart disease with heart failure; Z87.891 Personal history of nicotine dependence; G47.30 Sleep apnea, unspecified; Z79.84 Long term (current) use of oral hypoglycemic drugs; E66.9 Obesity, unspecified; Q24.9 Congenital malformation of heart, unspecified; Z81.2 Family history of tobacco abuse and dependence; Z91.14 Patient's other noncompliance with medication regimen; I42.8 Other cardiomyopathies; Z68.24 Body mass index [BMI] 24.0-24.9, adult; E11.9 Type 2 diabetes mellitus without complications; I69.320 Aphasia following cerebral infarction; Z20.822 Contact with and (suspected) exposure to COVID-19